=== PATIENT | male | born 1960 | race Caucasian/White ===

== ENCOUNTER → 2018-04-26 11:39 | Outpatient (CLI) | payer MEDICAID, SELFPAY ==
--- NOTE | 2018-04-26 11:43 | RAD_ITS ---
STUDY: X-RAY - RIGHT WRIST REASON FOR EXAM: Male, 58 years old. Continued pain following a recent injury. TECHNIQUE: 3 view(s) of the wrist were obtained. COMPARISON: None. FINDINGS: Normal visualized distal radius and ulna. Normal radiocarpal articulation. Normal distal radioulnar articulation. There is evidence of a nondisplaced avulsion fracture of the triquetrum. Normal carpal articulations. Normal carpometacarpal articulation of the thumb. Normal second through fifth carpometacarpal articulations. Normal visualized metacarpal bones. Soft tissue swelling. RAD/Wrist min 3 Views IMPRESSION: Findings suggestive of a nondisplaced avulsion fracture of the triquetrum with overlying soft tissue swelling. Electronically Signed: Jose Mccoy, at 12:35 EST , Service support ,
== END ==
PROVIDERS: Family Provider Family Medicine; PCP Family Medicine; Referring Provider Family Medicine; Visit Provider Family Medicine
DX: S60.211A Contusion of right wrist, initial encounter (principal)
CPT/HCPCS: 73110

== ENCOUNTER 2018-11-17 23:51 | Observation (INO) | payer MEDICAID, SELFPAY ==
[2018-11-17 23:52] VITALS: PULSE 116; RESP 28; TEMP 36.8; O2SAT 89; BMI 24.6
[2018-11-18] VITALS (19 sets, daily range): BP systolic 130–189; BP diastolic 91–122; PULSE 90–116; RESP 18–28; TEMP 36.6–37.7; O2SAT 92–100; BMI 25.3; BMI 25.4
--- NOTE | 2018-11-18 00:03 | EKG12_ITS ---
Test Reason : OVERDOSE Blood Pressure : / mmHG Vent. Rate : 101 BPM Atrial Rate : 101 BPM P-R Int : 126 ms QRS Dur : 112 ms QT Int : 374 ms P-R-T Axes : 074 069 013 degrees QTc Int : 484 ms Sinus tachycardia Possible Left atrial enlargement Inferior infarct (cited on or before 11-JAN-2016), age undetermined Abnormal ECG Confirmed by DAVID WESTFALL, JUDI ([id number]), electronic news gathering editor DAILY OLIVER ([id number]) on 11/19/2018 10:15:18 A M Referred By: SUZIE Confirmed By:FREDDY HERNADNEZ MD
--- NOTE | 2018-11-18 00:03 | RAD_ITS ---
STUDY: X-RAY CHEST REASON FOR EXAM: Male, 58 years old. Cough. TECHNIQUE: Frontal and lateral views of the chest. COMPARISON: 03/17/2017. 11/28/2013. FINDINGS: Lungs are mildly hyperexpanded with partial flattening of the diaphragm and increased retrosternal airspace on lateral view. There is increased interstitial prominence in the perihilar region of the right lower lung field which may represent early right lower lobe pneumonia. There is no demonstrated dense pulmonary consolidation. There is no demonstrated pleural abnormality. Normal size heart. Normal mediastinum and jose r. Normal visualized pulmonary arteries. Normal visualized aortic arch and descending thoracic aorta. There are diffuse degenerative changes of the visualized thoracic spine. There is exaggerated lower thoracic kyphosis. Normal visualized ribs, clavicles, and shoulders. There is no demonstrated abnormality of the visualized soft tissue structures of the upper abdomen. RAD/Chest PA and Lateral IMPRESSION: Suspect early right lower lobe pneumonia. Follow-up is advised. Suggestion of COPD. Electronically Signed: Robert Parrish MD at 0:50 EDT , Service support ,
--- NOTE | 2018-11-18 00:05 | ED.VIS.GEN ---
History of Present Illness Chief Complaint: Overdose Informant: Patient, Customer Care Representative Narrative: Found on the side of road by paramedics unresponsive. Pulse oxygenation 50% for EMS upon arrival on scene. Given 3 doses of Narcan and awoke. Patient denies any narcotic usage. He needed to be placed on nasal cannula oxygen due to hypoxia. There was vomit around him. Patient is unsure what happened to him. No injury. Current severity is mild. Patient feels better now. Patient is adamant he did not take any narcotics. He stated he is had a cold for the last week. He does have a history of COPD and asthmatic bronchitis. History of CAD as well. Denies any chest pain. - Past Medical History (1) Abnormal nuclear stress test Status: Chronic (2) Chest pain Status: Acute (3) History of left heart catheterization Status: Chronic Comment: 01/12/2016 (4) Atherosclerotic heart disease of [place] coronary artery with other forms of angina pectoris Status: Chronic (5) Encounter for long-term (current) use of other medications Status: Chronic (6) Old myocardial infarction Status: Chronic (7) Angina pectoris Status: Chronic (8) Shortness of breath Status: Chronic (9) Hypertension Status: Chronic (10) COPD (chronic obstructive pulmonary disease) Status: Chronic (11) Tobacco abuse Status: Chronic (12) Chronic pain Status: Chronic Past Medical History - Allergies and Home Meds Allergies/Adverse Reactions: Allergies aspirin Allergy (Verified 11/17/18 23:55) Hives Sulfa (Sulfonamide Antibiotics) Allergy (Verified 11/17/18 23:55) Hives epinephrine Adverse Reaction (Verified 11/17/18 23:55) Anaphylaxis Bee stings Allergy (Uncoded 11/17/18 23:55) Anaphylaxis Primary Care Physician: Mesfin Ellis MD [Primary Care Provider] - Prior records reviewed: Yes Past Medical History: - - See problem list Surgical History: - - Reviewed Smoking Status: Current every day smoker Alcohol: None Drugs: - - Denies - Family History Paternal Family History: Family History (Last Reviewed 02/09/17 @ 15:09 by Teresita Bridges) Father CVA (cerebral vascular accident) Mother CVA (cerebral vascular accident) Family History: Reports: Heart Disease Review of Systems General: Denies: Chills, Fever, Sweats Eyes: Denies: Visual changes - bilaterally, Diplopia ENT: Denies: Rhinorrhea, Sore throat Cardiovascular: Denies: Chest pain, Palpitations Respiratory: Reports: Cough. Denies: Dyspnea, Dyspnea on exertion Gastrointestinal: Denies: Abdominal pain, Nausea, Vomiting, Diarrhea, Melena, Hematochezia Genitourinary: Denies: Dysuria, Hematuria, Frequency Musculoskeletal: Denies: Back pain, Extremity Pain Skin: Denies: Rash, Wounds Neurological: Denies: Headache, Weakness, Numbness Physical Exam Vital Signs/Narrative: Vital Signs Temp Pulse Resp Pulse Ox 11/17/18 23:52 98.3 F 116 H 28 H 89 General: Well nourished, Well developed, No Acute Distress Head: Normocephalic, Atraumatic Eyes: Perrl, EOMI ENT: Moist mucous membranes, No rhinorrhea Neck: Supple, Nontender Cardiovascular: Regular rate, No murmurs, Tachycardia. Negative for: Regular rhythm Respiratory: No distress, Chest nontender, Rales, Wheezing, Diminished. Negative for: CTA bilaterally Abdomen: Soft, Nontender, Nondistended, Normal bowel sounds Back: Nontender, Normal Inspection Extremities: Nontender, No edema Skin: Normal color, No rash Neurological: Alert, Oriented x3, Cranial nerves II-XII grossly intact, Normal Strength, Normal Sensation Psychological: Normal affect, Normal Mood Diagnostic/Tx/Re-eval - Medical Decision Making Patient given a breathing treatment. Patient requiring nasal cannula oxygenation. Lab work chest x-ray and EKG obtained. Lab work shows a leukocytosis with left shift. Troponin is bumped at this time in the positive range likely secondary to his hypoxic cardiac strain. The patient had a heart catheterization a few years ago that showed no significant blockages. He has a completely blocked RCA with complete collaterals. Otherwise no major blockages noted. Patient dermally seen by cardiology. Chest x-ray shows a large right lower aspiration pneumonia. I suspect this is from him swallowing some of his emesis. The patient remains normal oxygenated greater than 95% on nasal cannula. Started on Unasyn. Patient stated the breathing treatments did help his wheezing. Discussed with the hospitalist and will be admitted. Patient is allergic to aspirin. I do not suspect this is cardiac in nature. I suspect this is from significant severe hypoxia secondary to his narcotic overdose causing cardiac strain. This should be resolved with treatment of his hypoxia and aspiration pneumonia. ED Disposition - Plan for ED Patient: Disposition: Home or Assisted Living Diagnosis: Respiratory failure, Narcotic overdose, Aspiration pneumonia, Elevated troponin
[2018-11-18] MEDS: Ipratropium/Albuterol Sulfate 3 ML AMPUL.NEB INHALATION (00:16)
[2018-11-18 00:17] LABS: Absolute Lymphocyte Count 1.49 X10^3/uL (0.83-4.51); Absolute Neutrophil Count 8.7 X10^3/uL (2.0-7.7); Basophil# 0.06 X10^3/uL; Basophil% 0.5 % (0-1); Eosinophil# 0.31 X10^3/uL; Eosinophils% 2.7 % (0-5); Hematocrit 43.8 % (40-54); Hemoglobin 13.7 g/dL (13.0-16.5); Lymphocyte # 1.49 X10^3/ul (4.0); Lymphocyte % 12.8 % (19-41); Mean Corp Hgb Conc 31.3 g/dL (32-36); Mean Corpuscular Volume 86.2 fL (80-94); Mean Platelet Vol. 8.4 fl (6.2-12.0); Monocyte# 1.06 X10^3/uL; Monocyte% 9.1 % (0-10); NRBC Flagged by Analyzer 0 % (0-5); Neutrophil # 8.66 X10^3/uL (2.7-7.7); Neutrophil % 74.3 % (47-70); Platelet Count 325 K/mm3 (150-450); RBC Distribution Width CV 13.6 % (11.6-14.6); RBC Distribution Width SD 43.4 fl (35.1-43.9); Red Blood Count 5.08 M/mm3 (4.6-6.2); White Blood Count 11.7 K/mm3 (4.4-11.0)
[2018-11-18 00:32] LABS: Anion Gap 5 (5-15); BUN 15 mg/dL (7-18); BUN/Creat Ratio 13.4 RATIO (10-20); Calcium,Total 8.9 mg/dL (8.5-10.1); Chloride 107 mmol/L (98-107); Creatinine, Serum 1.12 mg/dL (0.70-1.30); EST Glomerular Filtration Rate 72 mL/min (>60); Est Glom Filt Rate - Afr Amer 87 mL/min (>60); Estimated Creatinine Clearance 80.83 ml/min; Glucose 125 mg/dL (74-106); Potassium 3.8 mmol/L (3.5-5.1); Sodium Level 140 mmol/L (136-145)
[2018-11-18] MEDS: 0.9% Normal Saline 1,000 ML 100 ML IV ×2 (01:50→12:13)
--- NOTE | 2018-11-18 01:52 | NURSING ---
When asked pt. about med list in the computer, pt states that he is supposed to be taking meds, but does not. Pt. is unsure what he was supposed to be taking.
--- NOTE | 2018-11-18 02:09 | HP.PCM_ITS ---
Problem List (1) Respiratory failure Status: Acute (2) Narcotic overdose Status: Acute (3) Aspiration pneumonia Status: Acute (4) Elevated troponin Status: Acute (5) Hypertension Status: Chronic Qualifiers: Hypertension type: essential hypertension Qualified Code(s): I10 - Essential (primary) hypertension (6) COPD (chronic obstructive pulmonary disease) Status: Chronic Qualifiers: Emphysema type: unspecified Qualified Code(s): J43.9 - Emphysema, unspecified History of Present Illness Date of Admission: 11/18/18 Chief Complaint: Acute hypoxic respiratory failure The patient is a 58 year old M with PMH as below who presents by EMS after being found down. He does not remember what happened or how and history is limited. He thinks that he was walking to a friend's house when he collapsed. But he does not remember why he collapsed. When EMS arrived he was surrounded by a pool of vomit and was found to have a pulse ox of 50%. He was given 3 total doses of Narcan which then allowed him to wake up a little bit and be more communicative. He says that for about the last week he is had a cold with a hacking cough but has not seen his doctor in quite a while, and has not taken any of his home medications in at least a year. He denies any chest pain and in the ER he was found to have an elevated troponin of 0.336, this is likely secondary to his hypoxia. Also chest x-ray shows a right lower lobe infiltrate consistent with an aspiration pneumonia given his emesis. He was started on Unasyn in the ER. Past Medical History Past Medical History (Chronic Problems): Chronic Problems (Last Reviewed 02/09/17 @ 15:09 by Teresita Bridges) Abnormal nuclear stress test (Chronic) History of left heart catheterization (Chronic) 01/12/2016 Atherosclerotic heart disease of [place] coronary artery with other forms of angina pectoris (Chronic) Encounter for long-term (current) use of other medications (Chronic) Old myocardial infarction (Chronic) Angina pectoris (Chronic) Shortness of breath (Chronic) Hypertension (Chronic) COPD (chronic obstructive pulmonary disease) (Chronic) Tobacco abuse (Chronic) Chronic pain (Chronic) Medical History: Medical History (Last Reviewed 02/09/17 @ 15:09 by Teresita Bridges) Chest pain (Acute) R07.9 Atherosclerotic heart disease of [place] coronary artery with other forms of angina pectoris (Chronic) I25.118 Old myocardial infarction (Chronic) I25.2 Shortness of breath (Chronic) R06.02 Hypertension (Chronic) I10 COPD (chronic obstructive pulmonary disease) (Chronic) J44.9 Tobacco abuse (Chronic) Z72.0 Chronic pain (Chronic) G89.29 Allergies aspirin Allergy (Verified 11/17/18 23:55) Hives Sulfa (Sulfonamide Antibiotics) Allergy (Verified 11/17/18 23:55) Hives epinephrine Adverse Reaction (Verified 11/17/18 23:55) Anaphylaxis Bee stings Allergy (Uncoded 11/17/18 23:55) Anaphylaxis Home Medications: Ambulatory Orders Medication Instructions Recorded NK 11/18/18 Surgical History: no surgical history Smoking Status: Current every day smoker Tobacco Use: Cigarettes Alcohol: None Drugs: None - *Family History Paternal Family History: Family History (Last Reviewed 02/09/17 @ 15:09 by Teresita Bridges) Father CVA (cerebral vascular accident) Mother CVA (cerebral vascular accident) History Items: Cancer, Heart Disease Review of Systems Constitutional: Denies: Chills, Fever, Weight Change HEENT: Denies: Head Aches, Sinus Congestion, Sinus Drainage Cardiovascular: Denies: Chest Pain, Palpitations Respiratory: Reports: Cough, Sputum production. Denies: Shortness of breath at rest Gastrointestinal: Denies: Abdominal Pain, Nausea, Vomiting Genitourinary: Denies: Dysuria Musculoskeletal: Denies: Joint Pain, Joint Tenderness Skin: Denies: Rash, Wounds Neurological: Denies: Numbness, Tingling, Focal weakness Psychiatric: Denies: Anxiety, Depression Hematologic/ Lymphatic: Denies: Easy Bruising, Easy Bleeding VTE Information - Inpt Only VTE Present on Admission: No Patient Problems: Active and Suspected Problems (Last Reviewed 02/09/17 @ 15:09 by Teresita Bridges) Respiratory failure (Acute) Narcotic overdose (Acute) Aspiration pneumonia (Acute) Elevated troponin (Acute) - Physical Exam General: Cooperative, No apparent distress, Lethargic HEENT: Atraumatic, PERRLA, EOMI, Normocephalic Oral: Dry Mucosa Neck: Supple, No JVD Lungs: Normal air movement, Diminished, Rales, Tachypneic, Wheezes Cardiovascular: Regular rate, Regular Rhythm, Normal S1, Normal S2, No murmurs Abdomen: Soft, Non Tender, Non-Distended, No Hepato-splenomegaly Extremities: No edema, Capillary Refill Less than 3 Seconds Skin: No rashes, No breakdown Neurological: Neuro grossly intact, Sensory exam intact to light touch and pain Psych/Mental Status: Appropriate, Flat Affect Vital Signs Temp Pulse Resp BP Pulse Ox 97.9 F 93 24 H 166/95 H 100 11/18/18 01:30 11/18/18 01:34 11/18/18 01:30 11/18/18 01:30 11/18/18 01:30 Oxygen Flow Rate (L/min) 4 Oxygen Delivery Method Nasal Cannula Weight: 186 lb 15.232 oz Body Mass Index (BMI) 25.3 Intake and Output for Last 24 Hours 11/16/18 11/17/18 11/18/18 23:59 23:59 23:59 Intake Total 112 / 112 Balance 112 / 112 Laboratory Tests Past 24 Hrs 11/18/18 11/18/18 00:10 00:10 WBC 11.7 H RBC 5.08 Hgb 13.7 Hct 43.8 MCV 86.2 MCH 27.0 MCHC 31.3 L RDW Std Deviation 43.4 RDW Coeff of [place] 13.6 Plt Count 325 MPV 8.4 Immature Gran % (Auto) 0.600 Neut % (Auto) 74.3 H Lymph % (Auto) 12.8 L [place] % (Auto) 9.1 Eos % (Auto) 2.7 Baso % (Auto) 0.5 Absolute Neuts (auto) 8.7 H Absolute Lymphs (auto) 1.49 Nucleated RBC % 0 Sodium 140 Potassium 3.8 Chloride 107 Carbon Dioxide 28.0 Anion Gap 5 BUN 15 Creatinine 1.12 Estim Creat Clear Calc 80.83 Est GFR (MDRD) Af Amer 87 Est GFR (MDRD) Non-Af 72 BUN/Creatinine Ratio 13.4 Glucose 125 H Calcium 8.9 Troponin I 0.336 H Assessment/Plan All Active Problems (Last Reviewed 02/09/17 @ 15:09 by Teresita Bridges) Respiratory failure (Acute) Narcotic overdose (Acute) Aspiration pneumonia (Acute) Elevated troponin (Acute) Chest pain (Acute) 1. Acute hypoxic respiratory failure secondary to probable narcotic overdose/aspiration pneumonia secondary to emesis/metabolic encephalopathy from the above -When EMS found him his was oxygenating at 50%, and required 3 doses of Narcan to be revived -He denies any narcotic use or heroin use therefore will obtain a urine drug screen for further evaluation -Continue with Unasyn for his aspiration pneumonia based on the chest x-ray with right lower lobe infiltrate -Continue with oxygen via nasal cannula -IV fluids at 100 -Can have a diet if he passes a bedside swallow evaluation 2. History of COPD -Previous records indicate that he was supposed to be on albuterol inhaler however he has not been on this -Continue with albuterol treatments as needed -Also records indicate that he was supposed to be on budesonide and formoterol however he has not been on this for at least a year 3. CAD/HTN -He was supposed to be on Plavix because he was allergic to aspirin however he has not taken this for a year and he has not been on his lisinopril, metoprolol, or his Lipitor -We will monitor and reevaluate as he becomes more alert -He has had stress testing cardiac cath within the last 3 years which were essentially normal. I think that his troponin elevation at this time secondary to his hypoxia and his acute event for being here. Will obtain serial troponins for further evaluation but at the moment will not aggressively manage as an NSTEMI DVT: Lovenox Code Visit Inpatient E&M: 15760 Init Hosp L3
[2018-11-18 02:42] LABS: Amphetamine Urine VISTA POSITIVE (<1000 ng/mL); Barbiturate Urine VISTA NEGATIVE (< 200 ng/mL); Benzodiazepine Urine VISTA NEGATIVE (< 200 ng/mL); Cocaine Urine VISTA NEGATIVE (< 300 ng/mL); Ecstacy Urine VISTA POSITIVE (< 500 ng/mL); Methadone Urine VISTA NEGATIVE (< 300 ng/mL); PCP Urine VISTA NEGATIVE (< 25 ng/mL); THC Urine VISTA NEGATIVE (< 50 ng/mL); Vista UDS pH Range 5
[2018-11-18 06:30] LABS: Absolute Lymphocyte Count 0.68 X10^3/uL (0.83-4.51); Absolute Neutrophil Count 16.4 X10^3/uL (2.0-7.7); Basophil# 0.06 X10^3/uL; Basophil% 0.3 % (0-1); Eosinophils% 0.5 % (0-5); Hematocrit 46.4 % (40-54); Hemoglobin 14.6 g/dL (13.0-16.5); Lymphocyte # 0.68 X10^3/ul (4.0); Lymphocyte % 3.7 % (19-41); Mean Corp Hgb Conc 31.5 g/dL (32-36); Mean Corpuscular Hgb 26.8 pg (27.0-32.0); Mean Corpuscular Volume 85.1 fL (80-94); Mean Platelet Vol. 8.4 fl (6.2-12.0); Monocyte# 0.99 X10^3/uL; Monocyte% 5.4 % (0-10); NRBC Flagged by Analyzer 0 % (0-5); Neutrophil # 16.35 X10^3/uL (2.7-7.7); Neutrophil % 89.6 % (47-70); Platelet Count 326 K/mm3 (150-450); RBC Distribution Width CV 13.6 % (11.6-14.6); RBC Distribution Width SD 42.5 fl (35.1-43.9); Red Blood Count 5.45 M/mm3 (4.6-6.2); White Blood Count 18.3 K/mm3 (4.4-11.0)
[2018-11-18] MEDS: Lisinopril 10 MG Tablet PO (06:30)
[2018-11-18 06:51] LABS: Anion Gap 9 (5-15); BUN 12 mg/dL (7-18); Calcium,Total 8.4 mg/dL (8.5-10.1); Chloride 109 mmol/L (98-107); Creatinine, Serum 0.75 mg/dL (0.70-1.30); EST Glomerular Filtration Rate 114 mL/min (>60); Est Glom Filt Rate - Afr Amer 138 mL/min (>60); Estimated Creatinine Clearance 120.71 ml/min; Glucose 95 mg/dL (74-106); Potassium 3.9 mmol/L (3.5-5.1); Sodium Level 141 mmol/L (136-145)
[2018-11-18 06:52] LABS: D-Dimer Quantitative (DVT/PE) 1.18 FEU/ug/m (0.27-0.49)
--- NOTE | 2018-11-18 06:57 | CT_ITS ---
STUDY: CTA CHEST REASON FOR EXAM: Male, 58 years old. Shortness of breath and elevated d-dimer. Elevated troponin white count. RADIATION DOSAGE (If Supplied By Facility): CTDIvol = ( 10.13 ) mGy, DLP = ( 490.07 ) mGycm TECHNIQUE: The examination was performed with the intravenous administration of 100 ml of Isovue 370. Post-processing of the angiographic images was performed, with multiplanar reformation and 3D reconstruction. Individualized dose optimization techniques were used for this CT. COMPARISON: None. FINDINGS: Cardiac monitoring leads are present. Normal enhancement of the main pulmonary artery and right and left pulmonary arteries. There is limited enhancement of the bilateral peripheral pulmonary arteries. There is no demonstrated pulmonary embolism. There is atherosclerotic tortuosity of the aortic arch and descending thoracic aorta. Maximum transverse dimension of the ascending thoracic aorta measures 4.1 cm. There is no demonstrated aortic dissection. Normal heart and pericardium. There are visualized mediastinal lymph nodes, which are within normal size limits, and with normal morphology. There appears to be bilateral hilar lymphadenopathy. Normal visualized trachea and bronchi. The lungs are hyper expanded, with flattening of the hemidiaphragms. There are nodular airspace opacities present within both lower lobes, right middle lobe, and lingula. Some of this may represent airspace consolidation. Other areas may actually represent nodules measuring up to 2.2 cm in greatest dimension. Normal pleura. Normal chest wall structures. There are multiple sclerotic lesions was scattered throughout the imaged thoracic vertebral bodies that could represent small metastases. The bones in general are osteopenic. There are multilevel degenerative changes of the thoracic spine. Normal visualized upper abdomen. CT/CTA Chest W/WO Contrast IMPRESSION: 1. No CTA demonstrated pulmonary embolism or arterial dissection. 2. 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 3. Bilateral hilar lymphadenopathy. 4. 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 Electronically Signed: Kamila Ellis MD at 8:58 EDT , Service support ,
[2018-11-18] MEDS: Enoxaparin 40 MG/0.4 ML Syringe SC (09:45)
--- NOTE | 2018-11-18 11:40 | CASEMGMT ---
GARRICK BOTELLO CARDIOLOGY PHYSICIAN AYAN to room to meet with patient for initial transition planning/care coordination assessment. GARRICK BOTELLO introduced self and role at [facility]. Pt voices understanding and consents to assessment at this time. Pt resting in bed in no distress at this time. Pt is A/O at this time. Pt answered questions when asked but answers were very brief and would not provide much information. Care providers, pharmacy, and demographics verified at this time. There is no person to notify or next of kin listed on demographics. Asked pt if there was a family member or friend he would like listed and he stated No. Pt confirmed he lives with a friend but again stated he did not want anyone listed, even for emergency contact. Pt stated several times during assessment, I just want to get out of here. Pt denies any financial concerns and denies wanting to talk to SW. PCP: Dr Mesfin Ellis- has not been in to see him for about a year. Specialists: denies Preferred [facility]acy: [facility] Insurance: [employer]-- does not have a Wildlife Conservationist Prescription Benefit: Yes Living Will/HPOA: Pt does not currently have LW/HCPOA and declines wanting any information at this time. LNOK: Pt states he does not want anyone listed. Living Arrangements: States lives with a friend. States is independent with all ADL's and home mgmt tasks. Transportation: States he either walks or uses transportation through [facility]. DME: Denies using any DME and denies needs. HHC/SNF: No history of either, denies needs, and no needs identified. Pt wishes to return home and denies having any concerns/needs at this time. CM to follow for any discharge planning/needs. Pt made aware to ask for CM or SW if any needs/concerns arise. PLAN: Home with discharge plans in place. Amalia CASTELLANOS RN, CM
--- NOTE | 2018-11-18 13:59 | DCINST_ITS ---
- Discharge Diagnoses Current Active Problems: Current Active and Chronic Problems (Last Reviewed 02/09/17 @ 15:09 by Teresita Bridges) Respiratory failure (Acute) Narcotic overdose (Acute) Aspiration pneumonia (Acute) Elevated troponin (Acute) You will use the following diet at home:: No restrictions Your food should be the consistency of: Regular Your liquids should be the consistency of: Regular/Thin Discharge Activity: Return to Normal Activity Weight Bearing Status: Full weight bearing Additional Instructions: YOU HAVE AN ABNORMAL CAT SCAN OF THE CHEST INDICATING YOU MAY HAVE CANCER-YOU NEED TO FOLLOW UP WITH DR ELLIS IN THE NEXT 7-10 DAYS. Allergies/Adverse Reactions: Allergies aspirin Allergy (Verified 11/17/18 23:55) Hives Sulfa (Sulfonamide Antibiotics) Allergy (Verified 11/17/18 23:55) Hives epinephrine Adverse Reaction (Verified 11/17/18 23:55) Anaphylaxis Bee stings Allergy (Uncoded 11/17/18 23:55) Anaphylaxis Medications to take at Discharge Amox/Clavulanate Tablet [Augmentin Tablet] 875 mg PO BID #20 tab 11/18/18 Lisinopril [Zestril] 20 mg PO DAILY #30 tab 11/18/18 The following prescriptions were given: Amox/Clavulanate Tablet [Augmentin Tablet] 875 mg PO BID #20 tab Transmission Status: Pending to [facility] Lisinopril [Zestril] 20 mg PO DAILY #30 tab Prescription Printed Primary Care Physician: Mesfin Ellis MD [Primary Care Provider] - Please follow up with your Primary Care Physician in: within one week Test Results: Test results from this visit will be discussed in further detail at your follow- up appointment, if applicable.
--- NOTE | 2018-11-19 09:01 | DS.PCM_ITS ---
Discharge Date and Diagnosis Date of Admission: 11/18/18 Date of Discharge: 11/18/18 - Primary Discharge Diagnosis #1 aspiration pneumonia-secondary to toxic encephalopathy from unknown drug ingestion #2 indeterminate troponin elevations-etiology unclear #3 amphetamine and methamphetamine abuse #4 noncompliance with medical regimen #5 hypertension-uncontrolled due to patient noncompliance #6 possible metastatic cancer to lung and thoracic spine #7 suspected narcotic abuse - Secondary Discharge Diagnosis Chronic Problems (Last Reviewed 02/09/17 @ 15:09 by Teresita Bridges) Abnormal nuclear stress test (Chronic) History of left heart catheterization (Chronic) 01/12/2016 Atherosclerotic heart disease of [place] coronary artery with other forms of angina pectoris (Chronic) Encounter for long-term (current) use of other medications (Chronic) Old myocardial infarction (Chronic) Angina pectoris (Chronic) Shortness of breath (Chronic) Hypertension (Chronic) COPD (chronic obstructive pulmonary disease) (Chronic) Tobacco abuse (Chronic) Chronic pain (Chronic) Hospital Course and Treatment Operations: None Procedures: None Summary of Care Provided: The patient is a 58 year old M who was brought to the emergency room at [facility] after being found unresponsive by the side of the road, patient was given 3 doses of Narcan and awoke with this treatment. Patient denied any illicit drug usage, he initially had to be placed on nasal cannula due to hypoxia, there is noted to be vomitus around his mouth at the time of first examination. Patient stated that he felt better in the emergency room, he admitted to a history of COPD and asthmatic bronchitis as well as coronary artery disease. Patient denied any chest pain however. Work-up in the emergency room included a chest x-ray, EKG, and labs. Labs showed a leukocytosis, troponin was elevated in the intermediate range, chest x-ray showed a right lower lobe infiltrate felt to be secondary to aspiration. Patient was given IV Unasyn, he was given breathing treatments, tox screen of the urine was positive for methamphetamines and amphetamines. Patient was admit suri to ICU, IV antibiotics were continued, patient was finally weaned off oxygen and maintaining his pulse ox above 90% while ambulating. Patient has CTA of his chest performed due to an elevated [id number] showed possible metastatic process in the lungs and thoracic spine. I discussed this with the patient extensively and advised him to follow-up with his PCP concerning this. On 11/18/2018, patient was seen and examined, at that time he was alert and oriented x3, he was adamant about being discharged home and threatened to call a taxi to pick them up. Patient stated to this examiner that he was antisocial. Due to the fact that he was not needing oxygen and that his vital signs appeared stable, I agreed to the patient's discharge. I discussed his positive tox screen in his urine with him, he adamantly denied taking any methamphetamines or amphetamines. Patient did admit to not taking his home medications for quite some time-he states that he did not care about his medical health and he just stopped his medications. I advised him to resume his blood pressure medication and wrote him a prescription for lisinopril. On 11/18/2018, patient was seen and examined: On examination he appeared to be mildly agitated and had manic behavior. Vital signs as documented. Skin warm and dry and without overt rashes. Neck without JVD. Lungs-expiratory wheezes were noted bilaterally, patient did not appear short of breath however. Heart exam notable for regular rhythm, normal sounds and absence of murmurs, rubs or gallops. Abdomen unremarkable and without evidence of organomegaly, masses, or abdominal aortic enlargement. Extremities nonedematous. Neuro: Cranial nerves II through XII are grossly intact, no focal motor deficits were noted, sensation to light touch and pinprick intact. Psych: Patient is alert and oriented x3, he did appear to be anxious and had manic behavior. On 11/18/18, patient was seen and examined and felt to be in stable condition for discharge home, again I reiterated to the patient that he must follow-up concerning his abnormal CTA and his other medical problems with his PCP. - Physical Exam Vital Signs Temp Pulse Resp BP Pulse Ox 98.3 F 92 27 H 152/96 H 97 11/18/18 14:12 11/18/18 14:12 11/18/18 14:12 11/18/18 14:12 11/18/18 14:12 Oxygen Flow Rate (L/min) 2 Oxygen Delivery Method Room Air Weight: 84.8 kg Body Mass Index (BMI) 25.3 Intake and Output for Last 24 Hours 11/17/18 11/18/18 11/19/18 23:59 23:59 23:59 Intake Total 1909 / 1909 Output Total 750 / 750 Balance 1159 / 1159 Discharge Activity: Return to Normal Activity Weight Bearing Status: Full weight bearing Home Medications: Medications to take at Discharge Amox/Clavulanate Tablet [Augmentin Tablet] 875 mg PO BID #20 tab 11/18/18 Lisinopril [Zestril] 20 mg PO DAILY #30 tab 11/18/18 Following Prescrptions Were Given to Patient: Amox/Clavulanate Tablet [Augmentin Tablet] 875 mg PO BID #20 tab Transmission Status: Received by [facility] Lisinopril [Zestril] 20 mg PO DAILY #30 tab Prescription Printed Primary Care Physician: Mesfni Ellis MD [Primary Care Provider] - Please follow up with your Primary Care Physician in: within one week Disposition: Home Minutes spent on discharge:: 33 Patient Condition:: Stable Medical Necessity - Tobacco Use Smoking Status: Current every day smoker Tobacco Use: Cigarettes Meaningful Use Info Meaningful Use Diagnoses (Choose all that apply): None applicable Code Visit Inpatient E&M: 66610 Disch Hosp
== END 2018-11-18 14:15 | disposition home or self-care (01) ==
LOC: ED 11-18 00:51 → ICU 11-18 01:01
PROVIDERS: Admitting Provider Family Medicine; Emergency Provider Emergency Medicine; Family Provider Family Medicine; PCP Family Medicine; Visit Provider Internal Medicine
DX: G92 Toxic encephalopathy (principal); J96.01 Acute respiratory failure with hypoxia; T40.601A Poisoning by unspecified narcotics, accidental (unintentional), initial encounter; J69.0 Pneumonitis due to inhalation of food and vomit; F17.210 Nicotine dependence, cigarettes, uncomplicated; F15.10 Other stimulant abuse, uncomplicated; I10 Essential (primary) hypertension; I25.10 Atherosclerotic heart disease of native coronary artery without angina pectoris; J44.9 Chronic obstructive pulmonary disease, unspecified; I25.2 Old myocardial infarction; Z91.14 Patient's other noncompliance with medication regimen
CPT/HCPCS: 71046; 71275; 80048; 80307; 84484; 85025; 85379; 93005; 94640; 96361; 96365; 96366; 96372; 99218; 99285; J7030; Q9967; A4216; G0378; J0295

== ENCOUNTER → 2019-06-09 10:28 | Outpatient (CLI) | payer MEDICAID, SELFPAY ==
[2018-12-29 06:16] VITALS: BMI 25.9
[2019-06-09 11:48] VITALS: PULSE 102; PULSE 103; PULSE 104; PULSE 105; PULSE 79; PULSE 81; PULSE 91; O2SAT 94; O2SAT 95; O2SAT 96; O2SAT 97
--- NOTE | 2019-06-09 14:36 | PCM.PSN.6M ---
PSN 6 Minute Walk Test - 6 Minute Walk Test 6 Minute Walk Test: 6 Minute Walk Test PSN:6-Minute Walk Test Start: 06/09/19 11:47 Freq: Status: Active Protocol: RESP.6MINW Document 06/09/19 11:48 FR (Rec: 06/09/19 11:55 FR [id number]) 6 Minute Walk Test Date Performed 06/09/19 Time Performed 10:30 Height 6 ft Weight: 83.915 kg Weight in Pounds 185.[address]: DR. Olivares Assistive device used: None Pre-test Oxygen Delivery Method Room Air Pulse Ox (%) 97 Pulse Rate (60-100 beats/min) 81 Dyspnea Lizzy Scale (0-10) 4 Exertion Lizzy Scale (6-20) 11 1st minute Oxygen Delivery Method Room Air Pulse Ox (%) 95 Pulse Rate (60-100 beats/min) 79 2nd minute Oxygen Delivery Method Room Air Pulse Ox (%) 95 Pulse Rate (60-100 beats/min) 103 H 3rd minute Oxygen Delivery Method Room Air Pulse Ox (%) 94 Pulse Rate (60-100 beats/min) 102 H 4th minute Oxygen Delivery Method Room Air Pulse Ox (%) 95 Pulse Rate (60-100 beats/min) 104 H 5th minute Oxygen Delivery Method Room Air Pulse Ox (%) 96 Pulse Rate (60-100 beats/min) 105 H Reported Symptoms Increased Work of Breathing 6th minute Oxygen Delivery Method Room Air Pulse Ox (%) 95 Pulse Rate (60-100 beats/min) 103 H Dyspnea Lizzy Scale (0-10) 7 Exertion Lizzy Scale (6-20) 14 Post-test Oxygen Delivery Method Room Air Pulse Ox (%) 97 Pulse Rate (60-100 beats/min) 91 Full Laps Walked 22 Partial Lap, Number of Tiles Walked 47 Total Distance Walked (ft) 1345 - Interpretation Interpretation: The patient was able to ambulate 1345 feet over the course of 6 minutes on room air with the assistance of a cane and no breaks. The patient did have some tachycardia, but oxygen irene was only 94%. These findings are consistent with deconditioning. - Recommendations Recommendations: No supplemental oxygen is indicated at this time.
== END ==
PROVIDERS: PCP Family Medicine; Referring Provider Internal Medicine Critical Care Medicine; Visit Provider Internal Medicine Critical Care Medicine
DX: J96.01 Acute respiratory failure with hypoxia (principal); J96.02 Acute respiratory failure with hypercapnia
CPT/HCPCS: 94618

== ENCOUNTER → 2019-06-17 12:35 | Outpatient (CLI) | payer MEDICAID, SELFPAY ==
[2018-12-29 06:16] VITALS: BMI 25.9
--- NOTE | 2019-06-17 12:37 | CT_ITS ---
STUDY: CT CHEST WITHOUT CONTRAST REASON FOR EXAM: Male, 59 years old. PT STATED F/U TO PNEUMONIA AND R/O LUNG CA RADIATION DOSAGE (If Supplied By Facility): CTDIvol = ( 13.83 ) mGy, DLP = ( 575.01 ) mGycm TECHNIQUE: Transaxial imaging was performed without the administration of intravenous contrast material. Multiplanar coronal and sagittal images were reformatted. Individualized dose optimization techniques were used for this CT. COMPARISON: Comparison is made with prior study dated November 18, 2018. FINDINGS: Stable benign-appearing bilateral axillary lymph nodes. The previously seen diffuse bilateral nodular pulmonary infiltrates have resolved. No new abnormality is seen. There is no demonstrated pleural abnormality. There are calcifications of the coronary arteries. There are multiple small lymph nodes within the mediastinum, which are normal in size and morphology most compatible with reactive lymph hyperplasia. Stable calcified right hilar lymph node. Normal unenhanced pulmonary arteries. There is atherosclerotic calcification of the aortic arch. There are multi-level degenerative changes of the thoracic spine. Stable appearance of multiple small sclerotic lesions in the lower thoracic vertebrae. Metastatic disease should be ruled out. 1.6 cm nodular density in the left adrenal gland. This may represent an adenoma. This is unchanged. CT/Chest without Contrast IMPRESSION: Interval resolution of the previously seen bilateral pulmonary nodular infiltrates. Findings suggestive of a small left adrenal adenoma. Electronically Signed: Jose Mccoy, at 14:28 EDT , Service support ,
--- NOTE | 2019-06-18 08:47 | PFT ---
INTRODUCTION: The patient is a 59-year-old male that presents for pulmonary function studies secondary to a diagnosis of lung nodule. Respiratory therapy reports good patient effort. Bronchodilators were used during testing. INTERPRETATION: Forced expiration spirometry demonstrates the presence of a severe large airways obstructive ventilatory defect. There was a significant response to aerosolized bronchodilators, based upon change noted in FEV1. Spirograms are of good quality and do not plateau indicating slow emptying of the lungs. Body plethysmography was performed and reveals a decreased TLC to 4.52 L, 63% of predicted, indicative of a moderate restrictive ventilatory impairment. The remainder of the lung volumes are symmetrically reduced. Diffusing capacity by single breath CO is preserved at 94% of predicted. IMPRESSION: Partially reversible severe mixed ventilatory defect with preserved diffusing capacity.
== END ==
PROVIDERS: Family Provider Family Medicine; PCP Family Medicine; Referring Provider Internal Medicine Critical Care Medicine; Visit Provider Internal Medicine Critical Care Medicine
DX: J96.90 Respiratory failure, unspecified, unspecified whether with hypoxia or hypercapnia (principal); R91.8 Other nonspecific abnormal finding of lung field
CPT/HCPCS: 71250; 94060; 94726; 94729

== ENCOUNTER → 2020-06-22 10:20 | Outpatient (CLI) | payer MEDICAID, SELFPAY ==
[2019-09-20 05:41] VITALS: BMI 26.6
[2020-06-12 06:39] VITALS: BMI 27.9
--- NOTE | 2020-06-22 14:10 | PFTCOMP ---
COMPLETE PULMONARY FUNCTION TEST INTERPRETATION Brief HPI: Patient is a 60 year old male, currently under the care of myself, who presents to [facility] for complete pulmonary function tests secondary to diagnosis of COPD. Respiratory therapist reports good effort and reproducible results. Interpretation: Forced expiration spirometry shows a severe large airways obstructive ventilatory defect with an FEV1 of 44% predicted. There is no significant bronchodilator response by strict ATS criteria. Spirograms are of good quality and plateau slowly, indicating slowly emptying areas of the lungs. The respiratory flow volume loop shows decreased expiratory flow rates at all lung volumes consistent with airway obstruction. Lung volumes by body plethysmography show a normal total lung capacity at 7.27 L, 101% predicted. FRC and RV are elevated out of proportion. Lung volume measurements are consistent with air-trapping. Diffusion capacity by carbon monoxide is normal at 96% predicted. The airway resistance is elevated. Compared to previous pulmonary function tests from 06/17/2019, there is been significant worsening with air trapping and hyperinflation. Impression: Irreversible severe large airways obstructive ventilatory defect with preserved diffusion capacity, in a pattern consistent with chronic bronchitis.
== END ==
PROVIDERS: Referring Provider Internal Medicine Critical Care Medicine; Visit Provider Internal Medicine Critical Care Medicine
DX: J44.9 Chronic obstructive pulmonary disease, unspecified (principal)
CPT/HCPCS: 94060; 94726; 94729

== ENCOUNTER → 2020-06-28 07:55 | Outpatient (CLI) | payer MEDICAID, SELFPAY ==
[2020-06-12 06:39] VITALS: BMI 27.9
[2020-06-28 08:15] VITALS: PULSE 100; PULSE 104; PULSE 89; PULSE 92; PULSE 94; PULSE 98; O2SAT 94; O2SAT 95; O2SAT 96; O2SAT 97; O2SAT 98
--- NOTE | 2020-06-29 14:07 | WT_ITS ---
PSN 6 Minute Walk Test 6 Minute Walk Test 6 Minute Walk Test: 6 Minute Walk Test PSN:6-Minute Walk Test Start: 06/28/20 08:17 Freq: Status: Active Protocol: RESP.6MINW Document 06/28/20 08:15 AE (Rec: 06/28/20 08:21 [email or web address] Desktop) 6 Minute Walk Test Date Performed 06/28/20 Time Performed 08:15 Height 6 ft Weight: 205 lb Weight in Pounds 205.[address]: Dr Olivares Assistive device used: None Pre-test Oxygen Delivery Method Room Air Pulse Ox (%) 98 Pulse Rate (60-100 beats/min) 89 Dyspnea Lizzy Scale (0-10) 0.5 Exertion Lizzy Scale (6-20) 6 1st minute Oxygen Delivery Method Room Air Pulse Ox (%) 97 Pulse Rate (60-100 beats/min) 98 2nd minute Oxygen Delivery Method Room Air Pulse Ox (%) 95 Pulse Rate (60-100 beats/min) 100 3rd minute Oxygen Delivery Method Room Air Pulse Ox (%) 94 Pulse Rate (60-100 beats/min) 104 H 4th minute Oxygen Delivery Method Room Air Pulse Ox (%) 94 Pulse Rate (60-100 beats/min) 92 5th minute Oxygen Delivery Method Room Air Pulse Ox (%) 96 Pulse Rate (60-100 beats/min) 94 6th minute Oxygen Delivery Method Room Air Pulse Ox (%) 95 Pulse Rate (60-100 beats/min) 100 Dyspnea Lizzy Scale (0-10) 3 Exertion Lizzy Scale (6-20) 12 Post-test Oxygen Delivery Method Room Air Pulse Ox (%) 98 Pulse Rate (60-100 beats/min) 94 Full Laps Walked 19 Partial Lap, Number of Tiles Walked 30 Total Distance Walked (ft) 1151 Interpretation Interpretation: The patient ambulated 1151 feet over the course of 6 minutes beginning on room air without assistive devices or breaks. Pretesting oxygen saturation was noted to be 98% on room air. With ambulation, the irene oxygen saturation was 94%. There was no significant exertional oxygen desaturation. Recommendations Recommendations: There is no indication for the use of supplemental oxygen at this time.
== END ==
PROVIDERS: Referring Provider Internal Medicine Critical Care Medicine; Visit Provider Internal Medicine Critical Care Medicine
DX: J44.9 Chronic obstructive pulmonary disease, unspecified (principal)
CPT/HCPCS: 94618

== ENCOUNTER 2021-04-12 14:50 | Inpatient (IN) | payer MEDICAID, SELFPAY ==
[2021-04-12] VITALS (15 sets, daily range): BP systolic 104–138; BP diastolic 71–108; PULSE 99–107; RESP 15–28; TEMP 35.7–36.3; O2SAT 81–100; BMI 27.3; BMI 26.5
--- NOTE | 2021-04-12 15:39 | EKG12_ITS ---
Test Reason : CP Blood Pressure : / mmHG Vent. Rate : 101 BPM Atrial Rate : 101 BPM P-R Int : 122 ms QRS Dur : 110 ms QT Int : 336 ms P-R-T Axes : 074 049 040 degrees QTc Int : 435 ms Sinus tachycardia Inferior infarct , age undetermined Abnormal ECG Confirmed by DAVID WESTFALL, JUDI ([id number]), photograph editor DAILY OLIVER ([id number]) on 04/15/2021 1:08:31 PM Referred By: TAMIR Confirmed By:FREDDY HERNANDEZ MD
--- NOTE | 2021-04-12 15:54 | RAD_ITS ---
STUDY: X-RAY CHEST REASON FOR EXAM: Male, 60 years old. Chest pain TECHNIQUE: Frontal view COMPARISON: 11/18/2018. FINDINGS: The lungs are expanded. There is a mild right basilar infiltrate. Normal size heart. Normal mediastinum and jose r. Normal visualized pulmonary arteries. Normal visualized aortic arch and descending thoracic aorta. Degenerative changes of the thoracic spine. Normal visualized ribs, clavicles, and shoulders. There is no demonstrated abnormality of the visualized soft tissue structures of the upper abdomen. RAD/Chest 1 View (Portable) IMPRESSION: Mild right basilar infiltrate. Electronically Signed: Reinier Hillman DO at 16:10 EST ,
--- NOTE | 2021-04-12 16:03 | ED.VIS.CHEST ---
HPI History of Present Illness Chief Complaint: Chest Pain Narrative Narrative: 60-year-old male presenting with chest pain and shortness of breath which he states has had for 3 weeks. Apparently a well check was done on the patient and he was found to be doing methamphetamine and heroin. At this point this is when he stated he is having chest pain. He states he had difficulty getting around feels generally weak. He states he is doing methamphetamine and heroin because he is depressed because he lost his and mother. Patient took rate of pain located in his sacrum and buttocks. Apparently in route he urinated on himself. [facility] Medical History Atherosclerotic heart disease of [place] coronary artery with other forms of angina pectoris Chest pain Chronic pain COPD (chronic obstructive pulmonary disease) Hypertension Old myocardial infarction Shortness of breath Tobacco abuse Home Medications NK 04/12/21 [History Last Taken Unknown] Allergy/AdvReac Type Severity Reaction Status Date / Time aspirin Allergy Hives Verified 04/12/21 14:55 Sulfa (Sulfonamide Allergy Hives Verified 04/12/21 14:55 Antibiotics) epinephrine AdvReac Anaphylaxis Verified 04/12/21 14:55 Bee stings Allergy Anaphylaxis Uncoded 04/12/21 14:55 Family History Father CVA (cerebral vascular accident) COPD (chronic obstructive pulmonary disease) Mother CVA (cerebral vascular accident) Social History household members: other details: room mate Smoking Status: Heavy Smoker (>10/day) second hand exposure: Yes substance use type: heroin and amphetamines ROS ROS ED Constitutional Constitutional ED: Denies chills or fever(s) Eyes Eyes: Denies blurry vision or change in vision ENT ENT ED: Denies rhinorrhea or sore throat Cardiovascular Cardiovascular: Reports as per HPI and racing heartbeat Respiratory/Chest Respiratory/Chest: Reports dyspnea and dyspnea on exertion Gastrointestinal Gastrointestinal: Denies abdominal pain, nausea or vomiting Genitourinary Genitourinary ED: Denies dysuria Musculoskeletal Musculoskeletal: Reports other Details: Pain over the tailbone and left gluteal region Integumentary Reports other Details: Large wound over sacrum and right gluteal region Neurologic Neurologic: Reports headache(s); Denies paresthesias or weakness EXAM Physical Exam Const Vital Signs: 04/12/21 14:56 04/12/21 15:03 04/12/21 15:45 Temperature 96.2 F L Temperature Source Temporal Pulse Rate 107 H Respiratory Rate 28 H Respiratory Effort Short of Breath Respiratory Pattern Tachypnea Blood Pressure 129/104 H Blood Pressure Mean 112 Pulse Ox 93 92 Oxygen Delivery Method Room Air Room Air Oxygen Flow Rate (L/min) 04/12/21 16:00 04/12/21 17:00 04/12/21 18:02 Temperature 96.5 F L 97 F L 97.1 F L Temperature Source Temporal Temporal Temporal Pulse Rate 100 102 H 103 H Respiratory Rate 20 H 15 18 Respiratory Effort Respiratory Pattern Blood Pressure 123/83 H 109/97 H 135/81 H Blood Pressure Mean 96 101 99 Pulse Ox 95 95 97 Oxygen Delivery Method Room Air Nasal Cannula Room Air Oxygen Flow Rate (L/min) 2 2 04/12/21 19:00 Temperature 97.1 F L Temperature Source Temporal Pulse Rate 99 Respiratory Rate 16 Respiratory Effort Respiratory Pattern Blood Pressure 138/108 H Blood Pressure Mean 118 Pulse Ox Oxygen Delivery Method Room Air Oxygen Flow Rate (L/min) Positive obese and unkempt General Appearance ED: unkempt Nutritional Appearance: obese Eyes PERRL and EOMs intact bilaterally General Eye ED: Yes pale conjunctiva Neck No no lymphadenopathy and No supple Chest Wall inspection of chest normal and palpation of chest normal Resp Resp Narrative: Tachypneic. Speaking in full sentences. Neuro oriented x3 and CN's II-XII intact bilaterally Sensorium / Orientation: awake and alert Psych Appearance: unkempt Attitude: agitated Skin Skin Narrative: Large sacral wound which is circular with erythema surrounding. There is increased warmth here. This does extend into the left gluteal region at the gluteal fold. It is tender to palpations. No crepitance. Heart Score History: Slightly/Non-Suspicious ECG: Normal Age: >45 - <65 years Risk Factors: >/= 3 Risk Factors or History of CAD Troponin: >/=3 x Normal Limit Score: 5 MDM MDM MDM Narrative Medical decision making narrative: Patient arrives agitated and slightly confused with a rapid heart rate and respiratory rate. Sepsis work-up was obtained. EKG obtained on arrival showed a sinus tachycardia with a ventricular rate of 101 bpm without sign of ischemic change. CBC shows a leukocytosis of 50,000 with a hemoglobin of 6.9 and hematocrit of 69.5. Platelets are high at 560. Patient has 19 bands. At this point because he was in respiratory distress I did start vancomycin and Zosyn with concern for respiratory illness with his history of aspiration pneumonia as well. His initial chest x-ray on my interpretation showed a right basilar infiltrate. Patient's high-sensitivity troponin was elevated at 479. With the patient's chest pain, NSTEMI, and elevated D-dimer at 10.97 I did start a heparin drip and sent Hemoccult stool. He was typed and screened for 2 units. Stool was brown on examination. Creatinine is 1.31 with a BUN of 46 which is consistent with GI bleed and also is probably dehydration. Patient was given 2 L of IV fluids. Potassium is slightly elevated at 5.2 but I think the IV fluids to be sufficient. Glucose was elevated at 144 without an anion gap. Lactic acid was within normal limits at 1.8. CTA of the chest revealed multiple bilateral pulmonary emboli as well as bilateral pneumonia and right pleural effusion. Urinalysis is also positive for infection with 500 leukocyte esterase, 50-100 WBCs, and 2+ bacteria on a cath urine specimen. Patient was Hemoccult positive. He is given Protonix in the ER. Blood will be started when ready. Discussed with hospitalist for admission. Patient will go to the ICU tonight. His repeat troponin had come down to 432. Covid PCR is negative. Impression: 1. Pneumonia 2. Sepsis 3. UTI 4. Sacral decubitus ulcer 5. Right gluteal 6. Bilateral pulmonary emboli 7. Acute blood loss anemia 8. GI bleed 9. NSTEMI Lab Data Attestation: I reviewed the patient's lab results. Labs: Laboratory Results - last 24 hr 04/12/21 04/12/21 04/12/21 13:00 13:00 13:00 WBC 50.0 H* RBC 3.41 L Hgb 6.9 L Hct 23.7 L MCV 69.5 L MCH 20.2 L MCHC 29.1 L RDW Std Deviation 44.9 H RDW Coeff of Pilo 18.6 H Plt Count 560 H MPV 8.9 Neut % (Auto) Not Reportable Absolute Neuts (auto) 44.0 H Absolute Lymphs (auto) 0.00 L Total Counted 100 Neutrophils % (Manual) 69 Band Neutrophils % 19 H Monocytes % (Manual) 4 Metamyelocytes % 5 H Myelocytes % 2 H Blast Cells % 1 H* Nucleated RBCs/100 WBC 3 Diff Path Review May foll Platelet Estimate MOD INC RBC Morphology N CHROM Anisocytosis 1+ PT INR APTT D-Dimer Quant (PE/DVT) 10.97 H* Sodium 132 L Potassium 5.2 H Chloride 98 Carbon Dioxide 24.0 Anion Gap 10 BUN 46 H Creatinine 1.31 H Estim Creat Clear Calc 65.46 Est GFR (MDRD) Af Amer 72 Est GFR (MDRD) Non-Af 60 BUN/Creatinine Ratio 35.1 H Glucose 144 H Lactic Acid Calcium 8.4 L Total Bilirubin Direct Bilirubin AST ALT Alkaline Phosphatase Troponin I High Sens 479 H* Total Protein Albumin Globulin Urine Color Urine Clarity Urine pH Ur Specific [place] Urine Protein Urine Glucose (UA) Urine Ketones Urine Occult Blood Urine Nitrite Urine Bilirubin Urine Urobilinogen Ur Leukocyte Esterase Urine RBC Urine WBC Ur Squamous Epith Cells Urine Bacteria Hyaline Casts Urine Mucus Urine Opiates Screen Urine Methadone Screen Ur Barbiturates Screen Ur Phencyclidine Scrn Ur Amphetamines Screen U Methamphetamin-MDMA U Benzodiazepines Scrn Urine Cocaine Screen U Cannabinoids Screen Ur Drug Screen Comment Ethyl Alcohol COVID-19 ([facility]) 04/12/21 04/12/21 04/12/21 13:00 13:00 13:00 WBC RBC Hgb Hct MCV MCH MCHC RDW Std Deviation RDW Coeff of Pilo Plt Count MPV Neut % (Auto) Absolute Neuts (auto) Absolute Lymphs (auto) Total Counted Neutrophils % (Manual) Band Neutrophils % Monocytes % (Manual) Metamyelocytes % Myelocytes % Blast Cells % Nucleated RBCs/100 WBC Diff Path Review Platelet Estimate RBC Morphology Anisocytosis PT 15.9 H INR 1.3 APTT 32.9 D-Dimer Quant (PE/DVT) Sodium Potassium Chloride Carbon Dioxide Anion Gap BUN Creatinine Estim Creat Clear Calc Est GFR (MDRD) Af Amer Est GFR (MDRD) Non-Af BUN/Creatinine Ratio Glucose Lactic Acid Calcium Total Bilirubin 0.60 Direct Bilirubin 0.28 AST 75 H ALT 60 Alkaline Phosphatase 121 H Troponin I High Sens Total Protein 8.0 Albumin 1.4 L Globulin 6.6 H Urine Color Urine Clarity Urine pH Ur Specific [place] Urine Protein Urine Glucose (UA) Urine Ketones Urine Occult Blood Urine Nitrite Urine Bilirubin Urine Urobilinogen Ur Leukocyte Esterase Urine RBC Urine WBC Ur Squamous Epith Cells Urine Bacteria Hyaline Casts Urine Mucus Urine Opiates Screen Urine Methadone Screen Ur Barbiturates Screen Ur Phencyclidine Scrn Ur Amphetamines Screen U Methamphetamin-MDMA U Benzodiazepines Scrn Urine Cocaine Screen U Cannabinoids Screen Ur Drug Screen Comment Ethyl Alcohol < 3.0 COVID-19 ([facility]) 04/12/21 04/12/21 04/12/21 16:18 16:18 16:27 WBC RBC Hgb Hct MCV MCH MCHC RDW Std Deviation RDW Coeff of Pilo Plt Count MPV Neut % (Auto) Absolute Neuts (auto) Absolute Lymphs (auto) Total Counted Neutrophils % (Manual) Band Neutrophils % Monocytes % (Manual) Metamyelocytes % Myelocytes % Blast Cells % Nucleated RBCs/100 WBC Diff Path Review Platelet Estimate RBC Morphology Anisocytosis PT INR APTT D-Dimer Quant (PE/DVT) Sodium Potassium Chloride Carbon Dioxide Anion Gap BUN Creatinine Estim Creat Clear Calc Est GFR (MDRD) Af Amer Est GFR (MDRD) Non-Af BUN/Creatinine Ratio Glucose Lactic Acid Calcium Total Bilirubin Direct Bilirubin AST ALT Alkaline Phosphatase Troponin I High Sens Total Protein Albumin Globulin Urine Color Yellow Urine Clarity Cloudy Urine pH 6.5 Ur Specific [place] 1.015 Urine Protein 30 H Urine Glucose (UA) Normal Urine Ketones Negative Urine Occult Blood 150 H Urine Nitrite Negative Urine Bilirubin Negative Urine Urobilinogen Normal Ur Leukocyte Esterase 500 H Urine RBC 0-5 SEEN Urine WBC 50-100 SEEN Ur Squamous Epith Cells 0-5 SEEN Urine Bacteria 2+ Hyaline Casts 0-5 SEEN Urine Mucus 0 SEEN Urine Opiates Screen NEGATIVE Urine Methadone Screen NEGATIVE Ur Barbiturates Screen NEGATIVE Ur Phencyclidine Scrn NEGATIVE Ur Amphetamines Screen POSITIVE H U Methamphetamin-MDMA POSITIVE H U Benzodiazepines Scrn NEGATIVE Urine Cocaine Screen NEGATIVE U Cannabinoids Screen NEGATIVE Ur Drug Screen Comment Ethyl Alcohol COVID-19 ([facility]) Not Detected 04/12/21 04/12/21 17:30 17:30 WBC RBC Hgb Hct MCV MCH MCHC RDW Std Deviation RDW Coeff of Pilo Plt Count MPV Neut % (Auto) Absolute Neuts (auto) Absolute Lymphs (auto) Total Counted Neutrophils % (Manual) Band Neutrophils % Monocytes % (Manual) Metamyelocytes % Myelocytes % Blast Cells % Nucleated RBCs/100 WBC Diff Path Review Platelet Estimate RBC Morphology Anisocytosis PT INR APTT D-Dimer Quant (PE/DVT) Sodium Potassium Chloride Carbon Dioxide Anion Gap BUN Creatinine Estim Creat Clear Calc Est GFR (MDRD) Af Amer Est GFR (MDRD) Non-Af BUN/Creatinine Ratio Glucose Lactic Acid 1.8 Calcium Total Bilirubin Direct Bilirubin AST ALT Alkaline Phosphatase Troponin I High Sens 432 H* Total Protein Albumin Globulin Urine Color Urine Clarity Urine pH Ur Specific [place] Urine Protein Urine Glucose (UA) Urine Ketones Urine Occult Blood Urine Nitrite Urine Bilirubin Urine Urobilinogen Ur Leukocyte Esterase Urine RBC Urine WBC Ur Squamous Epith Cells Urine Bacteria Hyaline Casts Urine Mucus Urine Opiates Screen Urine Methadone Screen Ur Barbiturates Screen Ur Phencyclidine Scrn Ur Amphetamines Screen U Methamphetamin-MDMA U Benzodiazepines Scrn Urine Cocaine Screen U Cannabinoids Screen Ur Drug Screen Comment Ethyl Alcohol COVID-19 ([facility]) Radiography Diagnostic Testing: Clinical Impression(s) from Imaging Studies Chest X-Ray 04/12/21 15:54 IMPRESSION: Mild right basilar infiltrate. Electronically Signed: Reinier Hillman DO at 16:10 EST , Chest CTA 04/12/21 16:59 IMPRESSION: 1. There is pulmonary embolism of the right upper lobe branch, right middle lobe branch, right lower lobe branch, left lower lobe branch, lingular branch, and left upper lobe branch. There is no saddle embolus. No heart strain. 2. There is bilateral pneumonia. Right pleural effusion. cf called. Electronically Signed: Ramesh Madrid MD at 18:46 EST , ADDENDUM: 04/12/21 1853 IMPRESSION: 1. There is pulmonary embolism of the right upper lobe branch, right middle lobe branch, right lower lobe branch, left lower lobe branch, lingular branch, and left upper lobe branch. There is no saddle embolus. No heart strain. 2. There is bilateral pneumonia. Right pleural effusion. cf called. NVeronica. : The above Results were Read Back by Ramesh Madrid MD to Pedro Pablo Dickson DO, and understanding confirmed on 04/12/2021 18:46:54 (ET). Electronically Signed: Ramesh Madrid MD at 18:46 EST , Venous Duplex 04/12/21 18:54 IMPRESSION: Deep venous thrombosis of the right peroneal and gastrocnemius veins. Deep venous thrombosis of the left superficial femoral and popliteal as well as infrapopliteal veins. Right superficial venous thrombosis. Electronically Signed: Reinier Hillman DO at 20:38 EST , Discharge Plan Disposition Disposition: Acute Care Hospital [facility] Discharge Date/Time: 04/12/21 20:59
[2021-04-12 16:19] LABS: Anion Gap 10 (5-15); BUN 46 mg/dL (7-18); BUN/Creat Ratio 35.1 RATIO (10-20); Calcium,Total 8.4 mg/dL (8.5-10.1); Chloride 98 mmol/L (98-107); Creatinine, Serum 1.31 mg/dL (0.70-1.30); EST Glomerular Filtration Rate 60 mL/min (>60); Est Glom Filt Rate - Afr Amer 72 mL/min (>60); Estimated Creatinine Clearance 65.46 ml/min; Glucose 144 mg/dL (74-106); Potassium 5.2 mmol/L (3.5-5.1); Sodium Level 132 mmol/L (136-145); Troponin-I HS 479 pg/mL (3.0-78.0)
[2021-04-12 16:23] LABS: Mucous, Urine 0 SEEN /hpf (<or=2+)
[2021-04-12 16:28] LABS: Color, Urine Yellow (Yellow); Glucose, Dipstick Normal (Normal); Ketone-Dipstick Negative (Negative); Leukocyte Esterase-Dipstick 500 /ul (Negative); Nitrite-Dipstick Negative (Negative); Occult Blood-Urine 150 /ul (Negative); Protein-Dipstick 30 mg/dl (Negative); Specific Gravity, Urine 1.015 (1.002-1.030); Urine Bilirubin Dipstick Negative (Negative); Urine Clarity Cloudy (Clear); Urine Urobilinogen Normal (Normal); Urine pH 6.5 (5.0 - 8.0)
[2021-04-12 16:36] LABS: Hematocrit 23.7 % (40-54); Hemoglobin 6.9 g/dL (13.0-16.5); Mean Corp Hgb Conc 29.1 g/dL (32-36); Mean Corpuscular Hgb 20.2 pg (27.0-32.0); Mean Corpuscular Volume 69.5 fL (80-94); Mean Platelet Vol. 8.9 fl (6.2-12.0); POSITIVE COUNT YES; POSITIVE DIFFERENTIAL YES; POSITIVE MORPHOLOGY YES; Platelet Count 560 K/mm3 (150-450); RBC Distribution Width CV 18.6 % (11.6-14.6); RBC Distribution Width SD 44.9 fl (35.1-43.9); Red Blood Count 3.41 M/mm3 (4.6-6.2)
[2021-04-12 16:42] LABS: AST(SGOT) 75 U/L (15-37); Alanine Aminotransfer ALT/SGPT 60 U/L (16-61); Albumin, Serum 1.4 g/dL (3.2-5.0); Alkaline Phosphatase 121 U/L (45-117); Bilirubin, Direct 0.28 mg/dL (0.00-0.30); Globulin 6.6 g/dL (2.2-4.2)
[2021-04-12] MEDS: 0.9% Normal Saline 1,000 ML 999 ML IV ×2 (16:43→17:43)
[2021-04-12] MEDS: Ondansetron 4 MG/2 ML Vial IV (16:43)
[2021-04-12 16:44] LABS: Alcohol, Blood (Medical)-Serum < 3.0 mg/dL
[2021-04-12] MEDS: Morphine 4 MG/ML Syringe IV (16:44)
[2021-04-12 16:49] LABS: Differential Indicated MANUAL DIFF
[2021-04-12 16:55] LABS: Bacteria 2+ /hpf (None Seen); Hyaline Cast 0-5 SEEN /lpf (0-5); Red Blood Cells-Urine 0-5 SEEN /hpf (0-5); Squamous Epithelial Cells - UA 0-5 SEEN /hpf (0-5); White Blood Cells 50-100 SEEN /hpf (0-5)
[2021-04-12 16:58] LABS: D-Dimer Quantitative (DVT/PE) 10.97 FEU/ug/m (0.27-0.49)
--- NOTE | 2021-04-12 16:59 | CT_ITS ---
We are attempting to reach an attending provider to discuss findings. An addendum with communication details will be sent when the communication is complete. EXAM: CT ANGIOGRAPHY CHEST WITHOUT AND WITH INTRAVENOUS CONTRAST CLINICAL INDICATION: chest pain SOB X 3 WEEKS TECHNIQUE: Helically acquired angiography images were obtained of the chest without and with intravenous contrast. This CT exam was performed using one or more of the following dose reduction techniques: automated exposure control, adjustment of the mA and/or kV according to patient size, and/or use of iterative reconstruction technique. This report was created using [employer] report generation technology. MIP reconstructed images were created and reviewed. CONTRAST: IV 100mL [id number] COMPARISON: 9..19 FINDINGS: PULMONARY ARTERIES: There is pulmonary embolism of the right upper lobe branch, right middle lobe branch, right lower lobe branch, left lower lobe branch, lingular branch, and left upper lobe branch. There is no saddle embolus. No heart strain. Normal in caliber. AORTA: There is atherosclerotic calcification of the aortic arch with tortuosity and elongation of the aortic arch and descending thoracic aorta. Normal in caliber. No evidence of dissection. GREAT VESSELS OF AORTIC ARCH: Unremarkable. Normal in caliber. No evidence of dissection. LUNGS AND PLEURAL SPACES: There is bilateral pneumonia. Right pleural effusion. No mass. HEART: There are calcifications of the coronary arteries. No pericardial effusion. No signs of right heart strain, ratio of right ventricle to left ventricle measures less than 1. MEDIASTINUM: Unremarkable. No mediastinal or hilar adenopathy. Esophagus is unremarkable. No hiatal hernia. THYROID: Unremarkable. No thyroid lesions. BONES/JOINTS: There are degenerative findings of the thoracic spine. No suspicious lytic or blastic abnormality. CT/CTA Chest W/WO Contrast IMPRESSION: 1. There is pulmonary embolism of the right upper lobe branch, right middle lobe branch, right lower lobe branch, left lower lobe branch, lingular branch, and left upper lobe branch. There is no saddle embolus. No heart strain. 2. There is bilateral pneumonia. Right pleural effusion. cf called. Electronically Signed: Ramesh Madrid MD at 18:46 EST Reading Location ID and State: [facility] / [place] , Service support ,
[2021-04-12 17:01] LABS: Amphetamine Urine VISTA POSITIVE (<1000 ng/mL); Barbiturate Urine VISTA NEGATIVE (< 200 ng/mL); Benzodiazepine Urine VISTA NEGATIVE (< 200 ng/mL); Cocaine Urine VISTA NEGATIVE (< 300 ng/mL); Ecstacy Urine VISTA POSITIVE (< 500 ng/mL); Methadone Urine VISTA NEGATIVE (< 300 ng/mL); PCP Urine VISTA NEGATIVE (< 25 ng/mL); THC Urine VISTA NEGATIVE (< 50 ng/mL); Vista UDS pH Range 6
[2021-04-12 17:30] LABS: Blast 1 % (0-0); Metamyelocyte 5 % (0-1); Monocyte 4 % (0-10); Myelocyte 2 % (0-0); Neutrophil-Band 19 % (0-5); Neutrophil-Segmented 69 % (47-70); Nucleated Red Bld Cells,Manual 3 % (0-5); Total Cells Counted 100 (MANUAL DIFF)
[2021-04-12 17:34] LABS: Anisocytosis 1+; Platelet Estimate MOD INC (ADEQ); Red Cell Morphology N CHROM NORMAL (NORM C&C)
[2021-04-12] MEDS: Heparin Injection (Vial) 5,000 UNIT/ML VIAL 6000 UNIT IV (17:40)
--- NOTE | 2021-04-12 18:08 | ED.RN ---
per Dr. Dickson, zosyn was supposed to be a 30 minute transfusion not a 4 hr transfusion. rate changed and pharmacy notified of change.
[2021-04-12 18:12] LABS: International Normalized Ratio 1.3; Partial Thromboplast Time 32.9 Seconds (24.1-36.2); Prothrombin Time (Protime)PT. 15.9 SECONDS (11.7-14.9)
[2021-04-12 18:24] LABS: Troponin-I HS 432 pg/mL (3.0-78.0)
[2021-04-12 18:27] LABS: Lactic Acid 1.8 mmol/L (0.4-1.9)
--- NOTE | 2021-04-12 18:54 | US_ITS ---
STUDY: VENOUS DOPPLER ULTRASOUND - BILATERAL LOWER EXTREMITIES REASON FOR EXAM: Male, 60 years old. undefined -- PULMONARY EMBOLISM TECHNIQUE: Ultrasound evaluation of the deep vein system to include orourke-scale imaging and compression was performed. Orourke-scale imaging and Doppler sonographic evaluation, including duplex spectral analysis and qualitative color flow sonography, was performed. COMPARISON: None. FINDINGS: RIGHT LEG Common Femoral Vein: Normal compression, spontaneity and augmentation. Normal color Doppler. Common Femoral Vein/Greater Saphenous Junction: Normal compression. Femoral Proximal: Normal compression. Femoral Middle: Normal compression, spontaneity and augmentation. Normal color Doppler. Femoral Distal: Normal compression. Normal color Doppler. Popliteal Vein: Normal compression, spontaneity and augmentation. Normal color Doppler. Posterior Tibial Vein: Normal compression. Peroneal Vein: No compression. LEFT LEG Common Femoral Vein: Normal compression, spontaneity and augmentation. Normal color Doppler. Common Femoral Vein/Greater Saphenous Junction: Normal compression. Femoral Proximal: Normal compression. Normal color Doppler. Femoral Middle: No compression. No color Doppler. Femoral Distal: No compression. Popliteal Vein: No compression. No color Doppler. Posterior Tibial Vein: No compression. Peroneal Vein: No compression. US/Venous Duplex Imag/Emilio Extrem IMPRESSION: Deep venous thrombosis of the right peroneal and gastrocnemius veins. Deep venous thrombosis of the left superficial femoral and popliteal as well as infrapopliteal veins. Right superficial venous thrombosis. Electronically Signed: Reinier Hillman DO at 20:38 EST Reading Location ID and State: [facility] / [place] Tel [phone], Service support ,
--- NOTE | 2021-04-12 19:38 | PCM.HP.STD ---
[facility] - General General Date of Admission: 04/12/21 Date of Service: 04/12/21 Chief Complaint: Generalized weakness, inability to walk, recurrent falls, chest pain?3 weeks HPI Narrative ROMEO DOVER, is a 60 M who presents with above. Patient is a 60-year-old male with past medical history of CAD status post DE, hypertension, COPD/asthma overlap syndrome, chronic smoker, chronic back pain who comes in with complaints of generalized weakness, inability to walk, recurrent falls, chest pain ongoing for 3 weeks. Patient is a poor historian; appeared relatively lethargic and unwell. He stated that he lives with his roommate. He fell down 3 weeks ago and laid on the floor for couple of days. His roommate tried to help him to his bed. He has been falling. She however got irritated that she has to keep her per him up to bed. She has been giving him food and drink sometimes. He mostly has been lying on the floor or in bed. He admits to chest pain and progressive shortness of breath. He denied any fever or chills or diarrhea. He admits to some nausea. He denies any melena stools or hematochezia. He admits to occasional cough, productive of dark brown sputum. Patient admits to using illicit drugs - methamphetamines and heroin. He also smokes about 3 packs a day. Vitals in the ED showed blood pressure 129/104, temperature 96.2 F, heart rate 107, respiratory rate 28, SPO2 93% on room air. WBC count of 50,000,19% bandemia, hemoglobin 6.9, platelet count 560, D-dimer was 10.9, sodium 132, potassium 5.2, chloride 98, bicarbonate 24, BUN 46, creatinine 1.31, lactic acid 1.8, troponin 432, albumin 1.4 Admitting chest x-ray shows mild right basilar infiltrate. CTA of the chest shows extensive PE, no saddle embolus or heart strain. Bilateral pneumonia, right pleural effusion. Doppler ultrasound of the lower extremity shows right peroneal gastrocnemius vein DVT, DVT of the left superficial femoral and popliteal as well as from popliteal veins. Right superficial venous thrombosis. [facility] Medical History (Updated 04/12/21 @ 21:[address] Cristel Chu MD) Atherosclerotic heart disease of [place] coronary artery with other forms of angina pectoris Chest pain Chronic pain COPD (chronic obstructive pulmonary disease) Hypertension Old myocardial infarction Shortness of breath Tobacco abuse Home Medications NK 04/12/21 [History Last Taken Unknown] Allergy/AdvReac Type Severity Reaction Status Date / Time aspirin Allergy Hives Verified 04/12/21 14:55 Sulfa (Sulfonamide Allergy Hives Verified 04/12/21 14:55 Antibiotics) epinephrine AdvReac Anaphylaxis Verified 04/12/21 14:55 Bee stings Allergy Anaphylaxis Uncoded 04/12/21 14:55 Family History (Updated 04/12/21 @ 20:[address] Cristel Chu MD) Father CVA (cerebral vascular accident) COPD (chronic obstructive pulmonary disease) Mother CVA (cerebral vascular accident) Surgical History no surgical history no surgical history Social History (Updated 04/12/21 @ 20:[address] Cristel Chu MD) household members: other details: room mate Smoking Status: Heavy Smoker (>10/day) second hand exposure: Yes substance use type: heroin and amphetamines ROS ROS Narrative Constitutional: Reports: Malaise, Weakness, Fatigue. Denies: Anorexia, Chills, Fever, Night Sweats, Weight Change Eyes: Denies: Blurred vision, Cataracts, Conjunctivae Inflammation, Pain, Redness, Vision Change HEENT: Denies: Difficulty Hearing, Difficulty Swallowing, Head Aches, Hearing Changes, Sinus Congestion, Sinus Drainage Cardiovascular: Admits to chest pain denies:Orthopnea, Palpitations Respiratory: Admits to cough, Shortness of breath at rest, Sputum production Gastrointestinal: Admits to nausea denies: Abdominal Pain, Vomiting Genitourinary: Denies: Dysuria Musculoskeletal: Admits to bilateral leg swelling denies: Joint stiffness, Joint swelling Skin: Decubitus ulcers on the bottles Neurological: Admits to generally feeling weak denies: Numbness, Tingling, Focal weakness Vital Signs Vital Signs Vital Signs: 04/12/21 14:56 04/12/21 15:03 04/12/21 15:45 Temperature 96.2 F L Temperature Source Temporal Pulse Rate 107 H Respiratory Rate 28 H Respiratory Effort Short of Breath Respiratory Pattern Tachypnea Blood Pressure 129/104 H Blood Pressure Mean 112 Pulse Ox 93 92 Oxygen Delivery Method Room Air Room Air Oxygen Flow Rate (L/min) 04/12/21 16:00 04/12/21 17:00 04/12/21 18:02 Temperature 96.5 F L 97 F L 97.1 F L Temperature Source Temporal Temporal Temporal Pulse Rate 100 102 H 103 H Respiratory Rate 20 H 15 18 Respiratory Effort Respiratory Pattern Blood Pressure 123/83 H 109/97 H 135/81 H Blood Pressure Mean 96 101 99 Pulse Ox 95 95 97 Oxygen Delivery Method Room Air Nasal Cannula Room Air Oxygen Flow Rate (L/min) 2 2 04/12/21 19:00 Temperature 97.1 F L Temperature Source Temporal Pulse Rate 99 Respiratory Rate 16 Respiratory Effort Respiratory Pattern Blood Pressure 138/108 H Blood Pressure Mean 118 Pulse Ox Oxygen Delivery Method Room Air Oxygen Flow Rate (L/min) Weight Weight: 89 kg Body Mass Index (BMI) 27.3 Physical Exam Narrative Physical exam: General: Alert, Oriented x3, Cooperative, appears chronically unwell, unkempt, looks older than age, on 2 L of oxygen HEENT: Atraumatic Oral: Dry mucosa Neck: Supple Lungs: Diminished to auscultation, transmitted sounds Cardiovascular: HS I+II, regular, no murmurs Abdomen: Bowel Sounds Present, Soft, Non Tender Extremities: Bilateral leg edema +3 Skin: Coccygeal and left buttocks decubitus ulcers, unstageable Neurological: Grossly intact Psych/Mental Status: Appropriate Results Lab / Micro Data Result Diagrams: 04/12/21 13:00 04/12/21 13:00 Labs: Laboratory Results - last 24 hr 04/12/21 13:00: WBC 50.0 H*, RBC 3.41 L, Hgb 6.9 L, Hct 23.7 L, MCV 69.5 L, MCH 20.2 L, MCHC 29.1 L, RDW Std Deviation 44.9 H, RDW Coeff of [place] 18.6 H, Plt Count 560 H, MPV 8.9, Neut % (Auto) Not Reportable, Absolute Neuts (auto) 44.0 H, Absolute Lymphs (auto) 0.00 L, Total Counted 100, Neutrophils % (Manual) 69, Band Neutrophils % 19 H, Monocytes % (Manual) 4, Metamyelocytes % 5 H, Myelocytes % 2 H, Blast Cells % 1 H*, Nucleated RBCs/100 WBC 3, Diff Path Review May foll, Platelet Estimate MOD INC, RBC Morphology N CHROM, Anisocytosis 1+ 04/12/21 13:00: D-Dimer Quant (PE/DVT) 10.97 H* 04/12/21 13:00: Sodium 132 L, Potassium 5.2 H, Chloride 98, Carbon Dioxide 24.0, Anion Gap 10, BUN 46 H, Creatinine 1.31 H, Estim Creat Clear Calc 65.46, Est GFR (MDRD) Af Amer 72, Est GFR (MDRD) Non-Af 60, BUN/Creatinine Ratio 35.1 H, Glucose 144 H, Calcium 8.4 L, Troponin I High Sens 479 H* 04/12/21 13:00: PT 15.9 H, INR 1.3, APTT 32.9 04/12/21 13:00: Ethyl Alcohol < 3.0 04/12/21 13:00: Total Bilirubin 0.60, Direct Bilirubin 0.28, AST 75 H, ALT 60, Alkaline Phosphatase 121 H, Total Protein 8.0, Albumin 1.4 L, Globulin 6.6 H 04/12/21 16:18: Urine Opiates Screen NEGATIVE, Urine Methadone Screen NEGATIVE, Ur Barbiturates Screen NEGATIVE, Ur Phencyclidine Scrn NEGATIVE, Ur Amphetamines Screen POSITIVE H, U Methamphetamin-MDMA POSITIVE H, U Benzodiazepines Scrn NEGATIVE, Urine Cocaine Screen NEGATIVE, U Cannabinoids Screen NEGATIVE, Ur Drug Screen Comment 04/12/21 16:18: Urine Color Yellow, Urine Clarity Cloudy, Urine pH 6.5, Ur Specific [place] 1.015, Urine Protein 30 H, Urine Glucose (UA) Normal, Urine Ketones Negative, Urine Occult Blood 150 H, Urine Nitrite Negative, Urine Bilirubin Negative, Urine Urobilinogen Normal, Ur Leukocyte Esterase 500 H, Urine RBC 0-5 SEEN, Urine WBC 50-100 SEEN, Ur Squamous Epith Cells 0-5 SEEN, Urine Bacteria 2+, Hyaline Casts 0-5 SEEN, Urine Mucus 0 SEEN 04/12/21 17:30: Troponin I High Sens 432 H* 04/12/21 17:30: Lactic Acid 1.8 Radiology Impression Chest X-Ray 04/12/21 15:54 IMPRESSION: Mild right basilar infiltrate. Electronically Signed: Reinier Hillman DO at 16:10 EST Reading Location ID and State: [facility] / [place] Tel [phone], Service support , Chest CTA 04/12/21 16:59 IMPRESSION: 1. There is pulmonary embolism of the right upper lobe branch, right middle lobe branch, right lower lobe branch, left lower lobe branch, lingular branch, and left upper lobe branch. There is no saddle embolus. No heart strain. 2. There is bilateral pneumonia. Right pleural effusion. cf called. Electronically Signed: Ramesh Madrid MD at 18:46 EST , ADDENDUM: 04/12/21 1853 IMPRESSION: 1. There is pulmonary embolism of the right upper lobe branch, right middle lobe branch, right lower lobe branch, left lower lobe branch, lingular branch, and left upper lobe branch. There is no saddle embolus. No heart strain. 2. There is bilateral pneumonia. Right pleural effusion. cf called. N.B. : The above Results were Read Back by Ramesh Madrid MD to Pedro Pablo Dickson,DO, and understanding confirmed on 04/12/2021 18:46:54 (ET). Electronically Signed: Ramesh Madrid MD at 18:46 EST , Assessment & Plan Assessment/Plan (1) Sepsis: QUALIFIERS: Acute renal failure type: unspecified Sepsis acute organ dysfunction status: with acute organ dysfunction Sepsis type: sepsis due to unspecified organism Severe sepsis acute organ dysfunction type: acute renal failure Severe sepsis shock status: without septic shock Qualified Code(s): A41.9 - Sepsis, unspecified organism; R65.20 - Severe sepsis without septic shock; N17.9 - Acute kidney failure, unspecified (2) LAVELL (acute kidney injury): (3) Decubitus ulcers: QUALIFIERS: Pressure injury location: sacral region Pressure injury stage: unstageable Qualified Code(s): L89.150 - Pressure ulcer of sacral region, unstageable (4) Acute pulmonary embolism: QUALIFIERS: Acute cor pulmonale presence: without acute cor pulmonale Pulmonary embolism type: other Qualified Code(s): I26.99 - Other pulmonary embolism without acute cor pulmonale (5) Acute deep vein thrombosis (DVT): QUALIFIERS: Affected thrombotic vein of extremity: other lower extremity vein DVT location: lower extremity Laterality: bilateral Qualified Code(s): I82.493 - Acute embolism and thrombosis of other specified deep vein of lower extremity, bilateral PLAN: 1. Severe sepsis secondary to bilateral pneumonia/sacral/buttocks decubitus ulcers/UTI Patient with leukocytosis tachycardia, acute kidney injury, lactic acid is 1.8 Started on IV vancomycin and Zosyn; continue same Follow-up on blood cultures, urine cultures [employer] [address] Magistrate consult Continue on IV fluids 2. Hypoxia secondary to acute bilateral PE/bilateral pneumonia, patient is on 2 L of oxygen Continue to wean off oxygen, encourage use of incentive spirometer 3. Acute bilateral PE/bilateral DVT, provoked secondary to immobilization ongoing for 3 weeks EKG shows sinus tachycardia, elevated troponins Started on heparin drip, continue same Check 2D echo, trend troponins 4. Anemia, admitting hemoglobin is 6.9, previous hemoglobin 2019 was 14.6 No history of melena, patient presents with constipation Check iron stores, stool for occult blood ,IV PPI, transfuse 2 units of packed RBCs, H&H every 6h 5. LAVELL, prerenal secondary to #1 and #2/dehydration Previous creatinine was less than 1, admitted creatinine 1.31 Repeat labs in the a.m. 6. Hyponatremia/Hyperkalemia secondary to #4, will trend 7. Sacral and left buttock decubitus ulcer, unstageable Plastic surgery consult, wound RN consult, frequent turning 8. Nicotine abuse/polysubstance use, advised to quit, continue replacement Urine tox positive for amphetamines 9. Recurrent falls/debility related to the above PT/OT to evaluate and treat Social work consult for discharge planning 10. DVT prophylaxis?on heparin subcu 11. GI prophylaxis?on PPI 12. CODE STATUS?full code I discussed and explained in details the various types of CODE STATUS-full code, DNR CCA, DNR CC. Patient chose to be full code and wants everything done to keep him alive including being kept on life support. Time spent discussing CODE STATUS 17 minutes Charges/Coding Visit Charges Inpatient E&M: 06350 Init Hosp L3 Procedures Hospitalists Procedures: 38383 Advncd Care Plan 30 Min
--- NOTE | 2021-04-12 20:54 | ECHOD_ITS ---
Reason For Study: extensive PE & DVT. Procedure This was a 2D Doppler, Color Flow transthoracic echocardiogram. The study was technically difficult. D/T patient's rocking and moaning throughout exam. Exam performed portable in patient room. Left Ventricle Normal LV size. The estimated ejection fraction is 65 %. No evidence for diastolic dysfunction. No regional wall motion abnormalities noted. Right Ventricle Normal RV size. Normal systolic function. Atria Normal left atrium. Normal right atrium. No doppler evidence for ASD. Mitral Valve There is moderate to severe mitral annular calcification. There is no mitral valve stenosis. No mitral valve insufficiency. Tricuspid Valve There is no tricuspid stenosis. Unable to estimate RV systolic pressure due to insufficient tricuspid regurgitant envelope. Aortic Valve Trisinus/trileaflet aortic valve. There is no aortic stenosis. No aortic valve insufficiency. Pulmonic Valve There is no pulmonic valvular stenosis. No pulmonic valve insufficiency. Great Vessels Normal aortic root. Pericardium/Pleural No pericardial effusion. MMode/2D Measurements & Calculations LVIDd: 5.2 cm IVSd: 1.2 cm Ao root diam: 3.7 cm LVIDs: 3.8 cm LVPWd: 1.3 cm LA dimension: 4.5 cm RVDd: 3.6 cm FS: 27.0 % LAV(MOD-bp): 60.9 ml LA A4 area: 19.6 cm2 RA A4 area: 14.3 cm2 LAV(MOD-bp) Indexed: 29.1 ml/m2 LAV(MOD-sp2): 60.0 ml LAV(MOD-sp4): 60.5 ml Time Measurements MV dec time: 0.16 sec Doppler Measurements & Calculations MV E max jose: 113.7 cm/sec Lat Peak E' Jose: 14.1 cm/sec Med Peak E' Jose: 13.9 cm/sec MV A max jose: 135.4 cm/sec E/E' lat: 8.0 E/E' med: 8.2 MV E/A: 0.84 Ao V2 max: 191.2 cm/sec LV V1 max: 132.6 cm/sec PA V2 max: 110.1 cm/sec Ao max P.6 mmHg LV V1 max P.0 mmHg ECHO/Echo Complete Interpretation Summary The estimated ejection fraction is 65 %. No evidence for diastolic dysfunction. Ordering Physician: Cristel Chu Referring Physician: EKATERINA PCP Performed By: Anika Sales, KASEY, RVT
[2021-04-12] MEDS: Lactated Ringers 1,000 ML 150 ML IV (22:03)
[2021-04-12 22:29] LABS: Iron 13 ug/dL (65-175); Iron Binding Capacity,Total 174 ug/dL (250-450); PERCENT IRON SATURATION 7.5 % (15.0-55.0)
[2021-04-12 22:30] LABS: Partial Thromboplast Time 52.3 Seconds (24.1-36.2); Troponin-I HS 421 pg/mL (3.0-78.0)
[2021-04-12 22:32] LABS: Hematocrit 19.3 % (40-54); POSITIVE COUNT YES
[2021-04-12 22:33] LABS: Hemoglobin 5.8 g/dL (13.0-16.5)
[2021-04-12 22:54] LABS: BNP,B-Type NATRIURETIC PEPTIDE 176.2 pg/mL (0-100)
--- NOTE | 2021-04-12 22:55 | PCM.RX.CS ---
Consult Pharmacy has been consulted to manage selected antiobiotic: Vancomycin Type of Consult: New start Suspected Infection: Sepsis, Pneumonia Prior Doses of Antibiotics Received/Current Regimen: Medications Vancomycin HCl (Vancomycin) 1,000 mg in 200 mls @ 200 mls/hr IV Q12H JOHN Discontinued Medications Vancomycin HCl 1,250 mg/ (Sodium Chloride) 275 mls @ 167 mls/hr IV X1 ONE Stop: 04/12/21 18:21 Last Admin: 04/12/21 20:56 Dose: Infused Labs: Sodium 132 mmol/L (136-145) L 04/12/21 13:00 Potassium 5.2 mmol/L (3.5-5.1) H 04/12/21 13:00 Chloride 98 mmol/L (98-107) 04/12/21 13:00 Carbon Dioxide 24.0 mmol/L (21.0-32.0) 04/12/21 13:00 Anion Gap 10 (5-15) 04/12/21 13:00 BUN 46 mg/dL (7-18) H 04/12/21 13:00 Creatinine 1.31 mg/dL (0.70-1.30) H 04/12/21 13:00 Est GFR (MDRD) Af Amer 72 mL/min (>60) 04/12/21 13:00 Est GFR (MDRD) Non-Af 60 mL/min (>60) 04/12/21 13:00 BUN/Creatinine Ratio 35.1 RATIO (10-20) H 04/12/21 13:00 Glucose 144 mg/dL (74-106) H 04/12/21 13:00 Microbiology: Microbiology 04/12/21 20:05 Stool Stool Occult Blood (JOSÉ MANUEL) - Final Occult Blood Positive Weight used for dosin.4 kg Estimated Creatinine Clearance: 65 Goal Trough: 15-20 mcg/mL Pharmacy Plan for Drug Dosing: Pharmacy Service will continue to monitor and adjust dosing as required. Follow-Up Labs: Trough Vancomycin Labs to be done on [date and time ordered]: 04/14/21 @5434
[2021-04-13] VITALS (35 sets, daily range): BP systolic 82–126; BP diastolic 58–96; PULSE 92–108; RESP 14–28; TEMP 36.1–37.1; O2SAT 91–100
[2021-04-13 05:37] LABS: Hematocrit 22.8 % (40-54); Hemoglobin 7.2 g/dL (13.0-16.5); Mean Corp Hgb Conc 31.6 g/dL (32-36); Mean Corpuscular Hgb 23.2 pg (27.0-32.0); Mean Corpuscular Volume 73.5 fL (80-94); Mean Platelet Vol. 8.8 fl (6.2-12.0); POSITIVE COUNT YES; POSITIVE DIFFERENTIAL YES; POSITIVE MORPHOLOGY YES; Platelet Count 432 K/mm3 (150-450); RBC Distribution Width CV 21.8 % (11.6-14.6); RBC Distribution Width SD 56.2 fl (35.1-43.9)
[2021-04-13 05:42] LABS: Differential Indicated MANUAL DIFF
[2021-04-13 05:47] LABS: Partial Thromboplast Time 35.7 Seconds (24.1-36.2)
[2021-04-13 05:56] LABS: Total Cells Counted 100 (MANUAL DIFF); White Blood Count 42.8 K/mm3 (4.4-11.0)
[2021-04-13 05:57] LABS: ALB/GLOB Ratio 0.2 RATIO (0.9-2.4); AST(SGOT) 55 U/L (15-37); Alanine Aminotransfer ALT/SGPT 49 U/L (16-61); Albumin, Serum 1.2 g/dL (3.2-5.0); Alkaline Phosphatase 96 U/L (45-117); Anion Gap 4 (5-15); BUN 39 mg/dL (7-18); Calcium,Total 7.5 mg/dL (8.5-10.1); Chloride 102 mmol/L (98-107); EST Glomerular Filtration Rate 81 mL/min (>60); Est Glom Filt Rate - Afr Amer 99 mL/min (>60); Estimated Creatinine Clearance 85.76 ml/min; Globulin 5.7 g/dL (2.2-4.2); Glucose 95 mg/dL (74-106); Lymphocyte 5 % (19-41); Monocyte 0 % (0-10); Myelocyte 1 % (0-0); Neutrophil-Band 15 % (0-5); Neutrophil-Segmented 79 % (47-70); Nucleated Red Bld Cells,Manual 3 % (0-5); Platelet Estimate ADEQUATE (ADEQ); Potassium 4.4 mmol/L (3.5-5.1); Protein, Total 6.9 g/dL (6.4-8.2); Sodium Level 134 mmol/L (136-145)
[2021-04-13 05:58] LABS: Anisocytosis 1+; Hypochromasia 2+; Microcytosis 1+
[2021-04-13 06:00] LABS: Absolute Neutrophil Count 40.3 X10^3/uL (2.0-7.7); Neutrophil # 40.26 X10^3/uL (2.7-7.7)
[2021-04-13 06:01] LABS: Absolute Lymphocyte Count 2.14 X10^3/uL (0.83-4.51); Lymphocyte # 2.14 X10^3/ul (0.83-4.51)
[2021-04-13] MEDS: Vancomycin IV 1,000 MG/200 ML BAG 200 MG IV ×2 (06:23→19:57)
--- NOTE | 2021-04-13 07:06 | CON.PCM.CC_ITS ---
Assessment & Plan Assessment/Plan (1) Sepsis: QUALIFIERS: Sepsis type: sepsis due to unspecified organism Sepsis acute organ dysfunction status: with acute organ dysfunction Severe sepsis acute organ dysfunction type: acute renal failure Acute renal failure type: unspecified Severe sepsis shock status: without septic shock Qualified Code(s): A41.9 - Sepsis, unspecified organism; R65.20 - Severe sepsis without septic shock; N17.9 - Acute kidney failure, unspecified (2) LAVELL (acute kidney injury): (3) Decubitus ulcers: QUALIFIERS: Pressure injury location: sacral region Pressure injury stage: unstageable Qualified Code(s): L89.150 - Pressure ulcer of sacral region, unstageable (4) Acute pulmonary embolism: QUALIFIERS: Pulmonary embolism type: other Acute cor pulmonale presence: without acute cor pulmonale Qualified Code(s): I26.99 - Other pulmonary embolism without acute cor pulmonale (5) Acute deep vein thrombosis (DVT): QUALIFIERS: DVT location: lower extremity Affected thrombotic vein of extremity: other lower extremity vein Laterality: bilateral Qualified Code(s): I82.493 - Acute embolism and thrombosis of other specified deep vein of lower extremity, bilateral PLAN: RECOMMENDATIONS: 1. Continue empiric antibiotics pending cultures 2. Await echocardiogram for potential endocarditis 3. Continue heparin drip, possible IVC filter 4. Monitor H&H closely 5. Await plastics evaluation of sacral ulcer 6. Continue aggressive fluid resuscitation 7. Monitor for signs and symptoms of refeeding syndrome and withdraw 8. Bronchodilators for probable COPD 9. Continue to monitor in intensive care unit. High clinical suspicion for decompensation in the next 24 to 48 hours. IMPRESSIONS: 1. Severe sepsis from multiple sites Patient with multiple possible sites including bilateral infiltrates, decubitus ulcers and UTI. Patient growing gram-positive cocci in less than 12 hours in all blood culture bottles. Patient does have DVTs, but cannot exclude embolism from bacteremia as a secondary cause of pneumonia. Patient will need to be evaluated for endocarditis. Patient is appropriately on vancomycin and Zosyn for now. Continue with aggressive fluid resuscitation. No need for pressors at this time. Patient is on a heparin drip, but appears to be tolerating this intervention. 2. Acute hypoxic respiratory insufficiency secondary to bilateral PE with pneumonia Patient does have a smoking history. Some concern for concomitant COPD. Patient was guaiac positive with anemia on presentation. We will continue with heparin drip as this can be continued if patient develops bleeding complications . Patient does not appear to be fluid overloaded at this time, so we will continue IV fluids. Clinical suspicion for elevated troponin secondary to renal dysfunction and supply demand mismatch. 3. Anemia Likely multifactorial. Patient was occult stool positive. Patient likely also has an element of iron deficiency secondary to malnutrition. Patient responded to blood transfusions. We will continue on heparin drip. Await iron studies. May need IVC filter if patient starts to have bleeding complications. 4. Acute kidney injury Previous creatinine less than 1. Patient admitted with a creatinine of 1.31. Patient has received significant fluid resuscitation with improvement in creatinine. Clinical suspicion for prerenal etiology secondary to problem #1 and dehydration. No indication for renal replacement therapy at this time. 5. Unstageable decubitus sacral ulcer/left buttock High clinical suspicion patient will require debridement. Plastic surgery has been consulted. Cannot exclude an element of osteomyelitis leading to problem #1. Await wound and plastic evaluation. 6. Polysubstance abuse/recurrent falls/debility Complicates care, management, recovery and prognosis. Patient is a full code at this time. Clinical suspicion for an element of depression leading to polysubstance abuse. Social work and case management will be made aware for outpatient planning. HPI Consult Data Date of Consult: 04/13/21 HPI Narrative HPI Narrative: ROMEO DOVER is a 60 M, with past medical history listed below, who presents to [facility] on 04/12/2021 secondary to reported chest pain and shortness of breath. Patient reportedly had a well check by police and was found to be doing methamphetamine and heroin. Patient had reported chest pain and was feeling generalized weakness. Patient reportedly has been doing drugs secondary to the of his and mother, in addition to reported sacral and buttock pain. Patient reportedly had urinated on himself while in route to the ER. In the ER, patient was afebrile, but tachycardic at 107 bpm. Patient was tachypneic at 28 breaths/min, but saturating well on room air initially. Patient did require 2 L nasal cannula. Laboratory work-up showed a white blood cell count of 50, hemoglobin of 6.9 and platelet count of 560. Patient did have a significant left shift noted. Patient also had a D-dimer of 10.97, potassium of 5.2 and a creatinine of 1.3. Troponin was elevated at 479 and LFTs were remarkable only for a slightly elevated alkaline phosphatase of 121 and an albumin of 1.4. Alcohol level was 0. Urinalysis showed significant leukocyte esterase, white blood cells and bacteria. Tox screen was positive for methamphetamines. Covid screen was negative. Chest x-ray showed a mild right basilar infiltrate, but a subsequent CTA of the chest showed multiple segmental emboli, bilateral infiltrates and a small right pleural effusion. Lower extremity Dopplers showed multiple DVTs. Patient was transfused packed red blood cells, given Protonix and antibiotics. Patient subsequently admitted to the intensive care unit for further monitoring Since being in the intensive care unit, patient has remained relatively hemody namically stable. Patient is requiring 2 L nasal cannula to maintain saturations and blood pressures have been stable. Patient has been very somnolent and does moan with any movement. Nursing reported significant unstageable sacral ulcers. Patient is not able to provide much additional history. Patient states that he has not felt well for 2 to 3 weeks and has had multiple falls. Patient does admit to using fentanyl and methamphetamine. Patient is not reporting any other illicit drug use. Patient is not denying IV use. Patient does report sacral pain, but denies any nausea, vomiting or diarrhea. No bleeding complications have been reported by nursing. 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 Chest pain Chronic pain COPD (chronic obstructive pulmonary disease) Hypertension Old myocardial infarction Shortness of breath Tobacco abuse Home Medications NK 04/12/21 [History Last Taken Unknown] Allergy/AdvReac Type Severity Reaction Status Date / Time aspirin Allergy Hives Verified 04/12/21 14:55 Sulfa (Sulfonamide Allergy Hives Verified 04/12/21 14:55 Antibiotics) epinephrine AdvReac Anaphylaxis Verified 04/12/21 14:55 Bee stings Allergy Anaphylaxis Uncoded 04/12/21 14:55 Family History Father CVA (cerebral vascular accident) COPD (chronic obstructive pulmonary disease) Mother CVA (cerebral vascular accident) Surgical History no surgical history Social History household members: other details: room mate Smoking Status: Heavy Smoker (>10/day) second hand exposure: Yes substance use type: heroin and amphetamines ROS Review of Systems ROS Unobtainable: due to mental condition Physical Exam Const Constitutional Narrative: Disheveled. Appears older than stated age. Moaning in bed. General Appearance: ill appearing HEENT normocephalic Head and Scalp: abrasion Abrasion Size: Multiple abrasions throughout the face Mouth: dry mucous membranes Teeth and Gingiva: poor dentition Eyes PERRL and EOMs intact bilaterally Sclera: sclera abnormal Positive for bilateral Details: scleral injection Neck full ROM Neck Narrative: Cervical lymphadenopathy noted Chest Chest: abnormal inspection of the chest increased A-P diameter and symmetrical chest wall rise; Negative for crepitus Resp Effort and Inspection: Negative for actively coughing Auscultation: diminished lung sounds; Negative for rales, rhonchi or wheezes Cardio S1 normal heart sound, S2 normal heart sound, no murmurs, no rub and no gallops Rate: tachycardic Peripheral Pulses: radial pulses present and posterior tibial pulses present GI soft to palpation and non-tender Palpation: Negative for guarding Percussion: Negative for fluid wave Extremity General Extremity: Negative for clubbing, cyanosis or edema Skin Skin Narrative: Significant unstageable wound of the buttocks and sacrum. Multiple abrasions throughout the face and extremities. No obvious purulence appreciated. Neuro Neuro Narrative: No focal neurologic deficits. RASS -1. Not following many commands Psych Appearance: unkempt Mood & Affect: flat affect Lab / Micro Data Result Diagrams: 04/13/21 05:25 04/13/21 05:25 Labs: Laboratory Results - last 24 hr 04/12/21 13:00: WBC 50.0 H*, RBC 3.41 L, Hgb 6.9 L, Hct 23.7 L, MCV 69.5 L, MCH 20.2 L, MCHC 29.1 L, RDW Std Deviation 44.9 H, RDW Coeff of Pilo 18.6 H, Plt Count 560 H, MPV 8.9, Neut % (Auto) Not Reportable, Absolute Neuts (auto) 44.0 H , Absolute Lymphs (auto) 0.00 L, Total Counted 100, Neutrophils % (Manual) 69, Band Neutrophils % 19 H, Monocytes % (Manual) 4, Metamyelocytes % 5 H, Myelocytes % 2 H, Blast Cells % 1 H*, Nucleated RBCs/100 WBC 3, Diff Path Review May foll, Platelet Estimate MOD INC, RBC Morphology N CHROM, Anisocytosis 1+ 04/12/21 13:00: D-Dimer Quant (PE/DVT) 10.97 H* 04/12/21 13:00: Sodium 132 L, Potassium 5.2 H, Chloride 98, Carbon Dioxide 24.0, Anion Gap 10, BUN 46 H, Creatinine 1.31 H, Estim Creat Clear Calc 65.46, Est GFR (MDRD) Af Amer 72, Est GFR (MDRD) Non-Af 60, BUN/Creatinine Ratio 35.1 H, Glucose 144 H, Calcium 8.4 L, Troponin I High Sens 479 H* 04/12/21 13:00: PT 15.9 H, INR 1.3, APTT 32.9 04/12/21 13:00: Ethyl Alcohol < 3.0 04/12/21 13:00: Total Bilirubin 0.60, Direct Bilirubin 0.28, AST 75 H, ALT 60, Alkaline Phosphatase 121 H, Total Protein 8.0, Albumin 1.4 L, Globulin 6.6 H 04/12/21 16:18: Urine Opiates Screen NEGATIVE, Urine Methadone Screen NEGATIVE, Ur Barbiturates Screen NEGATIVE, Ur Phencyclidine Scrn NEGATIVE, Ur Amphetamines Screen POSITIVE H, U Methamphetamin-MDMA POSITIVE H, U Benzodiazepines Scrn NEG ATIVE, Urine Cocaine Screen NEGATIVE, U Cannabinoids Screen NEGATIVE, Ur Drug Screen Comment 04/12/21 16:18: Urine Color Yellow, Urine Clarity Cloudy, Urine pH 6.5, Ur Specific [place] 1.015, Urine Protein 30 H, Urine Glucose (UA) Normal, Urine Ketones Negative, Urine Occult Blood 150 H, Urine Nitrite Negative, Urine Bilirubin Negative, Urine Urobilinogen Normal, Ur Leukocyte Esterase 500 H, Urine RBC 0-5 SEEN, Urine WBC 50-100 SEEN, Ur Squamous Epith Cells 0-5 SEEN, Urine Bacteria 2+, Hyaline Casts 0-5 SEEN, Urine Mucus 0 SEEN 04/12/21 16:27: COVID-19 (VIKAS) Not Detected 04/12/21 17:30: Troponin I High Sens 432 H* 04/12/21 17:30: Lactic Acid 1.8 02/18/22 21:50: Blood Type A POSITIVE, Antibody Screen NEGATIVE, Crossmatch See Detail 04/12/21 21:52: Hgb 5.8 L*, Hct 19.3 L 04/12/21 21:52: Iron 13 L, TIBC 174 L, Iron Saturation 7.5 L 04/12/21 21:52: B-Natriuretic Peptide 176.2 H 04/12/21 21:52: Troponin I High Sens 421 H* 04/12/21 21:52: APTT 52.3 H 04/13/21 05:25: APTT 35.7 04/13/21 05:25: WBC 42.8 H*, RBC 3.10 L, Hgb 7.2 L, Hct 22.8 L, MCV 73.5 L D, MCH 23.2 L, MCHC 31.6 L D, RDW Std Deviation 56.2 H, RDW Coeff of Pilo 21.8 H, Plt Count 432, MPV 8.8, Neut % (Auto) Not Reportable, Absolute Neuts (auto) 40.3 H, Absolute Lymphs (auto) 2.14, Total Counted 100, Neutrophils % (Manual) 79 H, Band Neutrophils % 15 H, Lymphocytes % (Manual) 5 L, Monocytes % (Manual) 0, Myelocytes % 1 H, Nucleated RBCs/100 WBC 3, Diff Path Review June, Platelet Estimate ADEQUATE, Hypochromasia 2+, Anisocytosis 1+, Microcytosis 1+ 04/13/21 05:25: Sodium 134 L, Potassium 4.4, Chloride 102, Carbon Dioxide 28.0, Anion Gap 4 L, BUN 39 H, Creatinine 1.00, Estim Creat Clear Calc 85.76, Est GFR (MDRD) Af Amer 99, Est GFR (MDRD) Non-Af 81, BUN/Creatinine Ratio 39.0 H, Glucose 95, Calcium 7.5 L, Total Bilirubin 0.70, AST 55 H, ALT 49, Alkaline Phosphatase 96, Total Protein 6.9, Albumin 1.2 L, Globulin 5.7 H, Albumin/Globulin Ratio 0.2 L Micro: Microbiology 04/12/21 17:30 Blood Culture (Wb) - Anticubital Left Blood Culture - P reliminary 04/12/21 15:00 Blood Culture (Wb) - Right Hand Blood Culture - Preliminary 04/12/21 20:05 Stool Stool Occult Blood (JOSÉ MANUEL) - Final Occult Blood Positive Radiology Impression Chest X-Ray 04/12/21 15:54 IMPRESSION: Mild right basilar infiltrate. Electronically Signed: Reinier Hillman DO at 16:10 EST , Chest CTA 04/12/21 16:59 IMPRESSION: 1. There is pulmonary embolism of the right upper lobe branch, right middle lobe branch, right lower lobe branch, left lower lobe branch, lingular branch, and left upper lobe branch. There is no saddle embolus. No heart strain. 2. There is bilateral pneumonia. Right pleural effusion. cf called. Electronically Signed: Ramesh Madrid MD at 18:46 EST , ADDENDUM: 04/12/21 1853 IMPRESSION: 1. There is pulmonary embolism of the right upper lobe branch, right middle lobe branch, right lower lobe branch, left lower lobe branch, lingular branch, and left upper lobe branch. There is no saddle embolus. No heart strain. 2. There is bilateral pneumonia. Right pleural effusion. cf called. N.B. : The above Results were Read Back by Ramesh Madrid MD to Pedro Pablo Dickson DO, and understanding confirmed on 04/12/2021 18:46:54 (ET). Electronically Signed: Ramesh Madrid MD at 18:46 EST , Venous Duplex 04/12/21 18:54 IMPRESSION: Deep venous thrombosis of the right peroneal and gastrocnemius veins. Deep venous thrombosis of the left superficial femoral and popliteal as well as infrapopliteal veins. Right superficial venous thrombosis. Electronically Signed: Reinier Hillman DO at 20:38 EST , Charges/Coding Visit Charges Inpatient E&M: 39806 Init Hosp L3
[2021-04-13] MEDS: Ipratropium/Albuterol Sulfate 3 ML AMPUL.NEB INHALATION ×3 (07:17→15:14)
[2021-04-13 08:52] LABS: Partial Thromboplast Time 39.8 Seconds (24.1-36.2)
--- NOTE | 2021-04-13 10:18 | PCM.PN.HOSP ---
Subjective Subjective Keeps asking for water. Endorses that he uses about an eighth of gram of heroin/day. Objective Data Objective Data Vital Signs: Vital Signs Temp Pulse Resp BP Pulse Ox 36.2 C L 105 H 18 117/85 H 96 04/13/21 03:12 04/13/21 08:00 04/13/21 08:00 04/13/21 08:00 04/13/21 08:00 Oxygen Flow Rate (L/min) 2 Oxygen Delivery Method Nasal Cannula Weight: 87.2 kg Body Mass Index (BMI) 26.5 Intake & Output: Intake and Output for Last 24 Hours 04/11/21 04/12/21 04/13/21 23:59 23:59 23:59 Intake Total 2435 / 2447 1746 / 1746 Output Total 1450 / 1450 Balance 2435 / 1497 296 / 296 Lab / Micro Data Result Diagrams: 04/13/21 05:25 04/13/21 05:25 Labs: Laboratory Results - last 24 hr 04/12/21 13:00: WBC 50.0 H*, RBC 3.41 L, Hgb 6.9 L, Hct 23.7 L, MCV 69.5 L, MCH 20.2 L, MCHC 29.1 L, RDW Std Deviation 44.9 H, RDW Coeff of Pilo 18.6 H, Plt Count 560 H, MPV 8.9, Neut % (Auto) Not Reportable, Absolute Neuts (auto) 44.0 H, Absolute Lymphs (auto) 0.00 L, Total Counted 100, Neutrophils % (Manual) 69, Band Neutrophils % 19 H, Monocytes % (Manual) 4, Metamyelocytes % 5 H, Myelocytes % 2 H, Blast Cells % 1 H*, Nucleated RBCs/100 WBC 3, Diff Path Review May jackie, Platelet Estimate MOD INC, RBC Morphology N CHROM, Anisocytosis 1+ 04/12/21 13:00: D-Dimer Quant (PE/DVT) 10.97 H* 04/12/21 13:00: Sodium 132 L, Potassium 5.2 H, Chloride 98, Carbon Dioxide 24.0, Anion Gap 10, BUN 46 H, Creatinine 1.31 H, Estim Creat Clear Calc 65.46, Est GFR (MDRD) Af Amer 72, Est GFR (MDRD) Non-Af 60, BUN/Creatinine Ratio 35.1 H, Glucose 144 H, Calcium 8.4 L, Troponin I High Sens 479 H* 04/12/21 13:00: PT 15.9 H, INR 1.3, APTT 32.9 04/12/21 13:00: Ethyl Alcohol < 3.0 04/12/21 13:00: Total Bilirubin 0.60, Direct Bilirubin 0.28, AST 75 H, ALT 60, Alkaline Phosphatase 121 H, Total Protein 8.0, Albumin 1.4 L, Globulin 6.6 H 04/12/21 16:18: Urine Opiates Screen NEGATIVE, Urine Methadone Screen NEGATIVE, Ur Barbiturates Screen NEGATIVE, Ur Phencyclidine Scrn NEGATIVE, Ur Amphetamines Screen POSITIVE H, U Methamphetamin-MDMA POSITIVE H, U Benzodiazepines Scrn NEGATIVE, Urine Cocaine Screen NEGATIVE, U Cannabinoids Screen NEGATIVE, Ur Drug Screen Comment 04/12/21 16:18: Urine Color Yellow, Urine Clarity Cloudy, Urine pH 6.5, Ur Specific [place] 1.015, Urine Protein 30 H, Urine Glucose (UA) Normal, Urine Ketones Negative, Urine Occult Blood 150 H, Urine Nitrite Negative, Urine Bilirubin Negative, Urine Urobilinogen Normal, Ur Leukocyte Esterase 500 H, Urine RBC 0-5 SEEN, Urine WBC 50-100 SEEN, Ur Squamous Epith Cells 0-5 SEEN, Urine Bacteria 2+, Hyaline Casts 0-5 SEEN, Urine Mucus 0 SEEN 04/12/21 16:27: COVID-19 (VIKAS) Not Detected 04/12/21 17:30: Troponin I High Sens 432 H* 04/12/21 17:30: Lactic Acid 1.8 04/12/21 21:50: Blood Type A POSITIVE, Antibody Screen NEGATIVE, Crossmatch See Detail 04/12/21 21:52: Hgb 5.8 L*, Hct 19.3 L 04/12/21 21:52: Iron 13 L, TIBC 174 L, Iron Saturation 7.5 L 04/12/21 21:52: B-Natriuretic Peptide 176.2 H 04/12/21 21:52: Troponin I High Sens 421 H* 04/12/21 21:52: APTT 52.3 H 04/13/21 05:25: APTT 35.7 04/13/21 05:25: WBC 42.8 H*, RBC 3.10 L, Hgb 7.2 L, Hct 22.8 L, MCV 73.5 L D, MCH 23.2 L, MCHC 31.6 L D, RDW Std Deviation 56.2 H, RDW Coeff of Pilo 21.8 H, Plt Count 432, MPV 8.8, Neut % (Auto) Not Reportable, Absolute Neuts (auto) 40.3 H, Absolute Lymphs (auto) 2.14, Total Counted 100, Neutrophils % (Manual) 79 H, Band Neutrophils % 15 H, Lymphocytes % (Manual) 5 L, Monocytes % (Manual) 0, Myelocytes % 1 H, Nucleated RBCs/100 WBC 3, Diff Path Review June, Platelet Estimate ADEQUATE, Hypochromasia 2+, Anisocytosis 1+, Microcytosis 1+ 04/13/21 05:25: Sodium 134 L, Potassium 4.4, Chloride 102, Carbon Dioxide 28.0, Anion Gap 4 L, BUN 39 H, Creatinine 1.00, Estim Creat Clear Calc 85.76, Est GFR (MDRD) Af Amer 99, Est GFR (MDRD) Non-Af 81, BUN/Creatinine Ratio 39.0 H, Glucose 95, Calcium 7.5 L, Total Bilirubin 0.70, AST 55 H, ALT 49, Alkaline Phosphatase 96, Total Protein 6.9, Albumin 1.2 L, Globulin 5.7 H, Albumin/Globulin Ratio 0.2 L 04/13/21 07:55: APTT 39.8 H Micro: Microbiology 04/12/21 15:00 Blood Culture (Wb) - Right Hand Bacteria Detection (PCR) - Final Staphylococcus aureus 04/12/21 15:00 Blood Culture (Wb) - Right Hand Blood Culture - Preliminary Staphylococcus aureus 04/12/21 17:30 Blood Culture (Wb) - Anticubital Left Blood Culture - Preliminary 04/12/21 20:05 Stool Stool Occult Blood (JOSÉ MANUEL) - Final Occult Blood Positive Radiography Diagnostic Testing: Radiology Impression Chest X-Ray 04/12/21 15:54 IMPRESSION: Mild right basilar infiltrate. Electronically Signed: Reinier Hillman DO at 16:10 EST Reading Location ID and State: [facility] / [place] Tel [phone], Service support , Chest CTA 04/12/21 16:59 IMPRESSION: 1. There is pulmonary embolism of the right upper lobe branch, right middle lobe branch, right lower lobe branch, left lower lobe branch, lingular branch, and left upper lobe branch. There is no saddle embolus. No heart strain. 2. There is bilateral pneumonia. Right pleural effusion. cf called. Electronically Signed: Ramesh Madrid MD at 18:46 EST , ADDENDUM: 04/12/21 1853 IMPRESSION: 1. There is pulmonary embolism of the right upper lobe branch, right middle lobe branch, right lower lobe branch, left lower lobe branch, lingular branch, and left upper lobe branch. There is no saddle embolus. No heart strain. 2. There is bilateral pneumonia. Right pleural effusion. cf called. N.B. : The above Results were Read Back by Ramesh Madrid MD to Pedro Pablo Dickson DO, and understanding confirmed on 04/12/2021 18:46:54 (ET). Electronically Signed: Ramesh Madrid MD at 18:46 EST , Venous Duplex 04/12/21 18:54 IMPRESSION: Deep venous thrombosis of the right peroneal and gastrocnemius veins. Deep venous thrombosis of the left superficial femoral and popliteal as well as infrapopliteal veins. Right superficial venous thrombosis. Electronically Signed: Reinier Hillman DO at 20:38 EST , Physical Exam Const alert Constitutional Narrative: disheveled. afebrile HEENT HEENT Narrative: scabs on forehead and side of face. Neck no lymphadenopathy Resp normal respiratory effort, no retractions, no use of accessory muscles and clear to auscultation bilaterally Cardio regular rate, regular rhythm, S1 normal heart sound and S2 normal heart sound GI normal to inspection, nondistended, normoactive bowel sounds, soft to palpation, non-tender and non-distended Extremity Extremity Narrative: cyanosis on toes. edema. Skin Skin Narrative: numerous excoriations and superficial wounds. Assessment & Plan Assessment/Plan (1) Acute deep vein thrombosis (DVT): QUALIFIERS: Affected thrombotic vein of extremity: other lower extremity vein DVT location: lower extremity Laterality: bilateral Qualified Code(s): I82.493 - Acute embolism and thrombosis of other specified deep vein of lower extremity, bilateral (2) Sepsis: QUALIFIERS: Acute renal failure type: unspecified Sepsis acute organ dysfunction status: with acute organ dysfunction Sepsis type: sepsis due to unspecified organism Severe sepsis acute organ dysfunction type: acute renal failure Severe sepsis shock status: without septic shock Qualified Code(s): A41.9 - Sepsis, unspecified organism; R65.20 - Severe sepsis without septic shock; N17.9 - Acute kidney failure, unspecified (3) LAVELL (acute kidney injury): (4) Acute pulmonary embolism: QUALIFIERS: Acute cor pulmonale presence: without acute cor pulmonale Pulmonary embolism type: other Qualified Code(s): I26.99 - Other pulmonary embolism without acute cor pulmonale (5) Bacteremia: (6) Pneumonia: (7) Pulmonary embolism: PLAN: 1. sepsis POA Secondary to bacteremia and pneumonia on vanc and pip/tazo follow up cx 2. S. aureus bacteremia Of unknown primary this time Repeat blood cultures Concern for endocarditis Follow-up echocardiogram 3. Pulmonary embolism v. septic emboli continue heparin gtt 4. Pneumonia unclear type follow up cx 5. LAVELL resolved 6. Sacral decubitus ulcers PRS and wound care 7. Polysubstance abuse complicates care consider buprenorphine taper if active withdrawal 8. VTE prophylaxis: not indicated Charges/Coding Visit Charges Inpatient E&M: 34946 [facility] Hosp L3
--- NOTE | 2021-04-13 13:42 | CASEMGMT ---
Tertiary facilities in-network with patient's insurance include: [facility], [facility], [facility], [facility], [facility], [facility], , [facility], [place], and [place]. GARRICK BOTELLO attempted to complete assessment with patient at this time. Patient is confused and unable to participate in assessment.
[2021-04-13] MEDS: Juven (unflavored) Packet 1 PACKET PO (13:57)
[2021-04-13 17:02] LABS: Partial Thromboplast Time 47.6 Seconds (24.1-36.2)
--- NOTE | 2021-04-13 21:39 | CON.PCM.GI_ITS ---
HPI Consult Data Date of Consult: 04/13/21 HPI Narrative HPI Narrative: ROMEO DOVER, is a 60-year-old male with past medical history of CAD status post PA, hypertension, COPD/asthma overlap syndrome, chronic smoker, chronic back pain who comes in with complaints of generalized weakness, inability to walk, recurrent falls, chest pain ongoing for 3 weeks. He admits to chest pain and progressive shortness of breath. He denied any fever or chills or diarrhea. He admits to some nausea. He denies any melena stools or hematochezia. He admits to occasional cough, productive of dark brown sputum. Patient admits to using illicit drugs - methamphetamines and heroin. He also smokes about 3 packs a day. Admitting chest x-ray shows mild right basilar infiltrate. CTA of the chest shows extensive PE, no saddle embolus or heart strain. Bilateral pneumonia, right pleural effusion. Doppler ultrasound of the lower extremity shows right peroneal gastrocnemius vein DVT, DVT of the left superficial femoral and popliteal as well as from popliteal veins. Right superficial venous thrombosis. WBC count of 50,000,19% bandemia, hemoglobin 6.9, platelet count 560, D-dimer was 10.9, sodium 132, potassium 5.2, chloride 98, bicarbonate 24, BUN 46, creatinine 1.31, lactic acid 1.8, troponin 432, albumin 1.4 Patient received blood transfusion and is on antibiotic therapy in the medicine by supervisor [place] and hospitalist service. I was consulted because of his severe anemia with reactive thrombocytosis on outpatient with anticoagulation. He does admit to occasional dark stools. He did not know that he was anemic prior to coming into the hospital. He has never had a colonoscopy. [facility] Medical History (Updated 04/13/21 @ 21:[address] Veras Friend, DO) Atherosclerotic heart disease of [place] coronary artery with other forms of angina pectoris Chest pain Chronic pain COPD (chronic obstructive pulmonary disease) Hypertension Old myocardial infarction Shortness of breath Tobacco abuse Home Medications NK 04/12/21 [History Last Taken Unknown] Allergy/AdvReac Type Severity Reaction Status Date / Time aspirin Allergy Hives Verified 04/12/21 14:55 Sulfa (Sulfonamide Allergy Hives Verified 04/12/21 14:55 Antibiotics) epinephrine AdvReac Anaphylaxis Verified 04/12/21 14:55 Bee stings Allergy Anaphylaxis Uncoded 04/12/21 14:55 Family History Father CVA (cerebral vascular accident) COPD (chronic obstructive pulmonary disease) Mother CVA (cerebral vascular accident) Surgical History no surgical history Social History household members: other details: room mate Smoking Status: Heavy Smoker (>10/day) second hand exposure: Yes substance use type: heroin and amphetamines ROS Review of Systems ROS Unobtainable: other Constitutional Constitutional: Denies fatigue, fever(s), poor appetite, weight gain or weight loss ENT HEENT: Denies mouth lesions Cardiovascular Cardiovascular: Denies abdominal bloating, abdominal edema or abdominal pain Respiratory/Chest Respiratory/Chest: Denies change in mental status, change in phlegm color, chest congestion or chest tightness Gastrointestinal Gastrointestinal: Denies belching, bloating, change in bowel habits, change in stool character, chewing difficulty, coffee ground emesis, constipation, cramping, diarrhea, dyspepsia, dysphagia, early satiety, excessive flatus, fecal incontinence, heartburn, hematemesis, hematochezia, hemorrhoids, loose stools, melena, nausea, odynophagia, rectal bleeding, tenesmus, vomiting or weight changes Genitourinary Genitourinary: Denies abdominal discomfort, burning urination or itching Musculoskeletal Musculoskeletal: Reports as per HPI; Denies muscle weakness or myalgias Integumentary Integumentary: Denies jaundice Neurologic Neurologic: Denies lack of coordination or weakness Psychiatric Psychiatric: Denies confusion, depression, memory loss, mood swings, paranoia or suicidal ideation Endocrine Endocrinology: Denies systems reviewed and no addt'l complaints, except as documented Hematologic/Lymphatic Hematologic/Lymphatic: Denies anemia, easy bleeding, easy bruising or lymphadenopathy Allergic/Immunologic Allergic/Immunologic: Denies systems reviewed and no addt'l complaints, except as documented Physical Exam Const alert General Appearance: cooperative Orientation / Consciousness: oriented to person HEENT hearing grossly normal bilaterally Head and Scalp: normal to inspection Face and Sinus: face symmetric Nose: external nose normal Mouth: oral and palatal mucosa normal Eyes conjunctivae normal General Eye: normal appearance of both eyes Neck full ROM General: normal visual inspection Lymph Lymphatic: no lymphadenopathy noted Chest inspection of chest normal and palpation of chest normal Chest: symmetrical chest wall rise Resp normal respiratory effort Effort and Inspection: able to speak in complete sentences Cardio regular rate GI non-distended Percussion: normal to percussion Rectal Exam: deferred Neuro Speech: speech normal Gait (Neuro): normal gait Medical Records Data Medical Nutrition Assessment Dietitian: Malnutrition Criteria Met Start: 04/13/21 12:55 Freq: Status: Active Protocol: Document 04/13/21 12:55 RMA (Rec: 04/13/21 12:55 RMA [id number]) Nutrition Malnutrition Evidence of Malnutrition Exists Yes Malnutrition (severe): Chronic Evidenced By Suboptimal Energy Intake ( Severe),Weight Loss (Severe) Clinical Problem Chronic Disease or Condition Related Malnutrition Etiology Severe protein-calorie malnutrition in the context of chronic disease/injury and social circumstance related to increased energy expenditure/ inadequate oral intake, pressure injury and drug abuse Signs/Symptoms as evidenced by ~10% wt loss x 1 month and PO meeting less than 50% estimated nutrition needs for protein and calories Status Active Problem Recommendation Dietitian Recommendations/Changes Recommend advance PO as tolerated to Regular diet. Will add 240ml ensure clear TID w/ meals. Will add Darryl BID w/ medpass for wound healing. Adjust ONS as diet advanced from clear liquids. May need to consider enteral nutrition support if PO established inadequate at meals and weight continues to decline. Lab / Micro Data Result Diagrams: 04/13/21 05:25 04/13/21 05:25 Labs: Laboratory Results - last 24 hr 04/12/21 21:50: Blood Type A POSITIVE, Antibody Screen NEGATIVE, Crossmatch See Detail 04/12/21 21:52: Hgb 5.8 L*, Hct 19.3 L 04/12/21 21:52: Iron 13 L, TIBC 174 L, Iron Saturation 7.5 L 04/12/21 21:52: B-Natriuretic Peptide 176.2 H 04/12/21 21:52: Troponin I High Sens 421 H* 04/12/21 21:52: APTT 52.3 H 04/13/21 05:25: APTT 35.7 04/13/21 05:25: WBC 42.8 H*, RBC 3.10 L, Hgb 7.2 L, Hct 22.8 L, MCV 73.5 L D, MCH 23.2 L, MCHC 31.6 L D, RDW Std Deviation 56.2 H, RDW Coeff of Pilo 21.8 H, Plt Count 432, MPV 8.8, Neut % (Auto) Not Reportable, Absolute Neuts (auto) 40.3 H, Absolute Lymphs (auto) 2.14, Total Counted 100, Neutrophils % (Manual) 79 H, Band Neutrophils % 15 H, Lymphocytes % (Manual) 5 L, Monocytes % (Manual) 0, Myelocytes % 1 H, Nucleated RBCs/100 WBC 3, Diff Path Review June, Platelet Estimate ADEQUATE, Hypochromasia 2+, Anisocytosis 1+, Microcytosis 1+ 04/13/21 05:25: Sodium 134 L, Potassium 4.4, Chloride 102, Carbon Dioxide 28.0, Anion Gap 4 L, BUN 39 H, Creatinine 1.00, Estim Creat Clear Calc 85.76, Est GFR (MDRD) Af Amer 99, Est GFR (MDRD) Non-Af 81, BUN/Creatinine Ratio 39.0 H, Glucose 95, Calcium 7.5 L, Total Bilirubin 0.70, AST 55 H, ALT 49, Alkaline Phosphatase 96, Total Protein 6.9, Albumin 1.2 L, Globulin 5.7 H, Albumin/Globulin Ratio 0.2 L 04/13/21 07:55: APTT 39.8 H 04/13/21 16:37: APTT 47.6 H Micro: Microbiology 04/12/21 16:18 Urine Catheter - Catheter Urine Culture - Preliminary Staphylococcus aureus 04/12/21 15:00 Blood Culture (Wb) - Right Hand Bacteria Detection (PCR) - Final Staphylococcus aureus 04/12/21 15:00 Blood Culture (Wb) - Right Hand Blood Culture - Preliminary Staphylococcus aureus 04/12/21 17:30 Blood Culture (Wb) - Anticubital Left Blood Culture - Preliminary 04/12/21 20:05 Stool Stool Occult Blood (JOSÉ MANUEL) - Final Occult Blood Positive Radiology Impression Echocardiogram 04/12/21 20:54 Interpretation Summary The estimated ejection fraction is 65 %. No evidence for diastolic dysfunction. Ordering Physician: Cristel Chu Referring Physician: EKATERINA PCP Performed By: Anika Sales RDCS, RVT Assessment & Plan Assessment/Plan (1) Pulmonary embolism: PLAN: Patient is currently on heparin. His blood count has been monitored. He has not shown any signs of active bleeding at this time. He receive blood transfusion. (2) Anemia: PLAN: He will need to undergo an upper and lower endoscopy to evaluate his upper lower GI tract. The differential diagnosis for him would be severe stress gastritis, peptic ulcer disease, neoplasia. I will continue to follow. Charges/Coding Visit Charges Inpatient E&M: 83809 Init Hosp L3
[2021-04-13 23:42] LABS: Partial Thromboplast Time 55.4 Seconds (24.1-36.2)
[2021-04-14] VITALS (31 sets, daily range): BP systolic 102–142; BP diastolic 61–96; PULSE 88–108; RESP 17–30; TEMP 36.3–37.1; O2SAT 90–98
[2021-04-14] MEDS: Acetaminophen 325 MG Tablet 650 MG PO ×3 (04:25→17:59)
[2021-04-14 05:52] LABS: Hematocrit 19.1 % (40-54); Hemoglobin 6.1 g/dL (13.0-16.5); Mean Corp Hgb Conc 31.9 g/dL (32-36); Mean Corpuscular Hgb 23.3 pg (27.0-32.0); Mean Corpuscular Volume 72.9 fL (80-94); POSITIVE COUNT YES; POSITIVE DIFFERENTIAL YES; POSITIVE MORPHOLOGY YES; Platelet Count 409 K/mm3 (150-450); RBC Distribution Width CV 21.8 % (11.6-14.6); RBC Distribution Width SD 55.9 fl (35.1-43.9); Red Blood Count 2.62 M/mm3 (4.6-6.2)
[2021-04-14 05:53] LABS: Differential Indicated MANUAL DIFF
[2021-04-14 05:54] LABS: White Blood Count 38.8 K/mm3 (4.4-11.0)
[2021-04-14 06:31] LABS: Partial Thromboplast Time 50.1 Seconds (24.1-36.2)
[2021-04-14 06:34] LABS: Neutrophil-Band 5 % (0-5); Neutrophil-Segmented 85 % (47-70); Total Cells Counted 100 (MANUAL DIFF)
[2021-04-14 06:35] LABS: Anion Gap 6 (5-15); BUN 29 mg/dL (7-18); BUN/Creat Ratio 33.3 RATIO (10-20); Calcium,Total 7.4 mg/dL (8.5-10.1); Chloride 98 mmol/L (98-107); Creatinine, Serum 0.87 mg/dL (0.70-1.30); EST Glomerular Filtration Rate 96 mL/min (>60); Est Glom Filt Rate - Afr Amer 116 mL/min (>60); Estimated Creatinine Clearance 98.57 ml/min; Glucose 106 mg/dL (74-106); Lymphocyte 4 % (19-41); Magnesium 2.2 mg/dL (1.6-2.6); Metamyelocyte 3 % (0-1); Monocyte 3 % (0-10); Nucleated Red Bld Cells,Manual 2 % (0-5); Potassium 4.2 mmol/L (3.5-5.1); Sodium Level 131 mmol/L (136-145); Vancomycin, Trough Level 18.3 ug/mL (5.0-15.0)
[2021-04-14 06:36] LABS: Absolute Lymphocyte Count 1.55 X10^3/uL (0.83-4.51); Absolute Neutrophil Count 36.1 X10^3/uL (2.0-7.7); Differential Comment SCANNED; Lymphocyte # 1.55 X10^3/ul (0.83-4.51); Neutrophil # 36.11 X10^3/uL (2.7-7.7)
[2021-04-14 06:37] LABS: Platelet Estimate ADEQUATE (ADEQ)
[2021-04-14] MEDS: Heparin Injection (Vial) 5,000 UNIT/ML VIAL IV (06:37)
[2021-04-14 06:38] LABS: Anisocytosis 2+; Polychromasia 1+
[2021-04-14 06:39] LABS: Macrocytosis 1+; Microcytosis 1+
[2021-04-14 06:40] LABS: Schistocytes RARE
--- NOTE | 2021-04-14 06:44 | PCM.RX.CS ---
Consult Pharmacy has been consulted to manage selected antiobiotic: Vancomycin Type of Consult: Follow-up Suspected Infection: Sepsis Prior Doses of Antibiotics Received/Current Regimen: Medications Vancomycin HCl (Vancomycin) 1,000 mg in 200 mls @ 200 mls/hr IV Q12H JOHN Last Admin: 04/13/21 21:03 Dose: Infused Labs: Sodium 131 mmol/L (136-145) L 04/14/21 05:35 Potassium 4.2 mmol/L (3.5-5.1) 04/14/21 05:35 Chloride 98 mmol/L (98-107) 04/14/21 05:35 Carbon Dioxide 27.0 mmol/L (21.0-32.0) 04/14/21 05:35 Anion Gap 6 (5-15) 04/14/21 05:35 BUN 29 mg/dL (7-18) H 04/14/21 05:35 Creatinine 0.87 mg/dL (0.70-1.30) 04/14/21 05:35 Est GFR (MDRD) Af Amer 116 mL/min (>60) 04/14/21 05:35 Est GFR (MDRD) Non-Af 96 mL/min (>60) 04/14/21 05:35 BUN/Creatinine Ratio 33.3 RATIO (10-20) H 04/14/21 05:35 Glucose 106 mg/dL (74-106) 04/14/21 05:35 Vancomycin Trough 18.3 ug/mL (5.0-15.0) H 04/14/21 05:35 Microbiology: Microbiology 04/13/21 14:00 Blood Culture (Wb) - Right Wrist Blood Culture - Preliminary 04/12/21 16:18 Urine Catheter - Catheter Urine Culture - Preliminary Staphylococcus aureus 04/12/21 15:00 Blood Culture (Wb) - Right Hand Bacteria Detection (PCR) - Final Staphylococcus aureus 04/12/21 15:00 Blood Culture (Wb) - Right Hand Blood Culture - Preliminary Staphylococcus aureus 04/12/21 17:30 Blood Culture (Wb) - Anticubital Left Blood Culture - Preliminary 04/12/21 20:05 Stool Stool Occult Blood (JOSÉ MANUEL) - Final Occult Blood Positive Weight used for dosin kg Estimated Creatinine Clearance: 119 Goal Trough: 15-20 mcg/mL Pharmacy Plan for Drug Dosing: Vancomycin trough level was 18.3. It was drawn just 9.5hrs post dose, but was still within target range of 15-20. SCr decreased also, so the same dose of 1000mg q12h will be continued. Another trough level will be drawn in four doses. Pharmacy Service will continue to monitor and adjust dosing as required. Follow-Up Labs: Trough Vancomycin Labs to be done on [date and time ordered]: 04/16/21 @3992
[2021-04-14 06:48] LABS: Phosphorus 2.5 mg/dL (2.5-4.9)
--- NOTE | 2021-04-14 06:49 | PN.CC_ITS ---
Assessment & Plan Assessment/Plan (1) Sepsis: QUALIFIERS: Sepsis type: sepsis due to unspecified organism Sepsis acute organ dysfunction status: with acute organ dysfunction Severe sepsis acute organ dysfunction type: acute renal failure Acute renal failure type: unspecified Severe sepsis shock status: without septic shock Qualified Code(s): A41.9 - Sepsis, unspecified organism; R65.20 - Severe sepsis without septic shock; N17.9 - Acute kidney failure, unspecified (2) LAVELL (acute kidney injury): (3) Decubitus ulcers: QUALIFIERS: Pressure injury location: sacral region Pressure injury stage: unstageable Qualified Code(s): L89.150 - Pressure ulcer of sacral region, unstageable (4) Acute pulmonary embolism: QUALIFIERS: Pulmonary embolism type: other Acute cor pulmonale presence: without acute cor pulmonale Qualified Code(s): I26.99 - Other pulmonary embolism without acute cor pulmonale (5) Acute deep vein thrombosis (DVT): QUALIFIERS: DVT location: lower extremity Affected thrombotic vein of extremity: other lower extremity vein Laterality: bilateral Qualified Code(s): I82.493 - Acute embolism and thrombosis of other specified deep vein of lower extremity, bilateral PLAN: RECOMMENDATIONS: 1. Continue empiric antibiotics pending cultures. Possibly narrow if found to have MSSA 2. Transfused 2 units of packed red blood cells 3. Continue heparin drip, possible IVC filter 4. Monitor H&H closely 5. Await plastics evaluation of sacral ulcer 6. Continue aggressive fluid resuscitation 7. Monitor for signs and symptoms of refeeding syndrome and withdraw 8. Bronchodilators for probable COPD 9. Likely okay to leave the intensive care unit from my perspective IMPRESSIONS: 1. Severe sepsis from multiple sites secondary to staph aureus Patient with multiple possible sites including bilateral infiltrates, decubitus ulcers and UTI. Patient growing staph aureus in less than 12 hours in all blood culture bottles, but MSSA versus MRSA is not yet known. Patient does have DVTs, but cannot exclude embolism from bacteremia as a secondary cause of pneumonia. Surprisingly, endocarditis was not noted on echocardiogram. Patient is appropriately on vancomycin and Zosyn for now. Continue with aggressive fluid resuscitation. No need for pressors at this time. Patient is on a heparin drip, but appears to be tolerating this intervention. 2. Acute hypoxic respiratory insufficiency secondary to bilateral PE with pneumonia Patient does have a smoking history. Some concern for concomitant COPD. Patient was guaiac positive with anemia on presentation. We will continue with heparin drip as this can be continued if patient develops bleeding complications. Patient does not appear to be fluid overloaded at this time, so we will continue IV fluids. Clinical suspicion for elevated troponin secondary to renal dysfunction and supply demand mismatch. 3. Anemia Likely multifactorial. Patient was occult stool positive. Patient likely also has an element of iron deficiency secondary to malnutrition. Patient responded to blood transfusions. We will continue on heparin drip. Await iron studies. May need IVC filter if patient starts to have bleeding complications. Could consider an iron infusion, but defer to hospitalist 4. Acute kidney injury Previous creatinine less than 1. Patient admitted with a creatinine of 1.31. Patient has received significant fluid resuscitation with improvement in creatinine. Clinical suspicion for prerenal etiology secondary to problem #1 and dehydration. No indication for renal replacement therapy at this time. 5. Unstageable decubitus sacral ulcer/left buttock High clinical suspicion patient will require debridement. Plastic surgery has been consulted. Cannot exclude an element of osteomyelitis leading to problem #1. Await wound and plastic evaluation. 6. Polysubstance abuse/recurrent falls/debility Complicates care, management, recovery and prognosis. Patient is a full code at this time. Clinical suspicion for an element of depression leading to polysubstance abuse. Social work and case management will be made aware for outpatient planning. Subjective Subjective Patient did okay from a hemodynamic standpoint overnight. Patient still reports generalized aching and pain. No shortness of breath has been noted. Patient did have an echocardiogram with no vegetations. No obvious GI bleeding noted from nursing, but hemoglobin was found to be lower this morning. Objective Data Objective Data Vital Signs: Vital Signs Temp Pulse Resp BP Pulse Ox 36.9 C 93 24 H 111/70 95 04/14/21 04:00 04/14/21 06:00 04/14/21 06:00 04/14/21 06:00 04/14/21 06:00 Oxygen Flow Rate (L/min) 2 Oxygen Delivery Method Room Air Weight: 91 kg Body Mass Index (BMI) 26.5 Intake & Output: Intake and Output for Last 24 Hours 04/12/21 04/13/21 04/14/21 23:59 23:59 23:59 Intake Total 2435 / 2447 4028.88 / 4028.88 154.32 / 154.32 Output Total 2650 / 2650 750 / 750 Balance 2435 / 1497 1378.88 / 1378.88 -595.68 / -595.68 Medical Nutrition Assessment Dietitian: Malnutrition Criteria Met Start: 04/13/21 12:55 Freq: Status: Active Protocol: Document 04/13/21 12:55 RMA (Rec: 04/13/21 12:55 RMA [id number]) Nutrition Malnutrition Evidence of Malnutrition Exists Yes Malnutrition (severe): Chronic Evidenced By Suboptimal Energy Intake ( Severe),Weight Loss (Severe) Clinical Problem Chronic Disease or Condition Related Malnutrition Etiology Severe protein-calorie malnutrition in the context of chronic disease/injury and social circumstance related to increased energy expenditure/ inadequate oral intake, pressure injury and drug abuse Signs/Symptoms as evidenced by ~10% wt loss x 1 month and PO meeting less than 50% estimated nutrition needs for protein and calories Status Active Problem Recommendation Dietitian Recommendations/Changes Recommend advance PO as tolerated to Regular diet. Will add 240ml ensure clear TID w/ meals. Will add Darryl BID w/ medpass for wound healing. Adjust ONS as diet advanced from clear liquids. May need to consider enteral nutrition support if PO established inadequate at meals and weight continues to decline. Lab / Micro Data Result Diagrams: 04/14/21 05:35 04/14/21 05:35 Labs: Laboratory Results - last 24 hr 04/13/21 07:55: APTT 39.8 H 04/13/21 16:37: APTT 47.6 H 04/13/21 23:20: APTT 55.4 H 04/14/21 05:35: Vancomycin Trough 18.3 H 04/14/21 05:35: APTT 50.1 H 04/14/21 05:35: WBC 38.8 H*, RBC 2.62 L, Hgb 6.1 L, Hct 19.1 L, MCV 72.9 L, MCH 23.3 L, MCHC 31.9 L, RDW Std Deviation 55.9 H, RDW Coeff of Pilo 21.8 H, Plt Count 409, MPV 9.0, Neut % (Auto) Not Reportable, Absolute Neuts (auto) 36.1 H, Absolute Lymphs (auto) 1.55, Total Counted 100, Neutrophils % (Manual) 85 H, Band Neutrophils % 5, Lymphocytes % (Manual) 4 L, Monocytes % (Manual) 3, Metamyelocytes % 3 H, Nucleated RBCs/100 WBC 2, Differential Comment SCANNED, Diff Path Review May , Platelet Estimate ADEQUATE, Polychromasia 1+, Anisocytosis 2+, Microcytosis 1+, Macrocytosis 1+, Schistocytes RARE 04/14/21 05:35: Sodium 131 L, Potassium 4.2, Chloride 98, Carbon Dioxide 27.0, Anion Gap 6, BUN 29 H, Creatinine 0.87, Estim Creat Clear Calc 98.57, Est GFR (MDRD) Af Amer 116, Est GFR (MDRD) Non-Af 96, BUN/Creatinine Ratio 33.3 H, Glucose 106, Calcium 7.4 L, Magnesium 2.2 04/14/21 05:35: Phosphorus 2.5 Micro: Microbiology 04/13/21 14:00 Blood Culture (Wb) - Right Wrist Blood Culture - Preliminary 04/12/21 16:18 Urine Catheter - Catheter Urine Culture - Preliminary Staphylococcus aureus 04/12/21 15:00 Blood Culture (Wb) - Right Hand Bacteria Detection (PCR) - Final Staphylococcus aureus 04/12/21 15:00 Blood Culture (Wb) - Right Hand Blood Culture - Preliminary Staphylococcus aureus 04/12/21 17:30 Blood Culture (Wb) - Anticubital Left Blood Culture - Preliminary 04/12/21 20:05 Stool Stool Occult Blood (JOSÉ MANUEL) - Final Occult Blood Positive Radiography Diagnostic Testing: Radiology Impression Echocardiogram 04/12/21 20:54 Interpretation Summary The estimated ejection fraction is 65 %. No evidence for diastolic dysfunction. Ordering Physician: Cristel Chu Referring Physician: EKATERINA PCP Performed By: Anika Sales, KIRACS, RVT Physical Exam Const Constitutional Narrative: Disheveled. Appears older than stated age. Less moaning today General Appearance: ill appearing HEENT normocephalic HEENT Narrative: Abrasions and dry mouth are improving Head and Scalp: abrasion Abrasion Size: Multiple abrasions throughout the face Teeth and Gingiva: poor dentition Eyes PERRL and EOMs intact bilaterally Eyes Narrative: Slightly pale conjunctive a Sclera: sclera normal Neck full ROM Neck Narrative: Cervical lymphadenopathy noted Chest Chest: abnormal inspection of the chest increased A-P diameter and symmetrical chest wall rise; Negative for crepitus Resp Effort and Inspection: Negative for actively coughing Auscultation: diminished lung sounds; Negative for rales, rhonchi or wheezes Cardio S1 normal heart sound, S2 normal heart sound, no murmurs, no rub and no gallops Rate: tachycardic Peripheral Pulses: radial pulses present and posterior tibial pulses present GI soft to palpation and non-tender Palpation: Negative for guarding Percussion: Negative for fluid wave Extremity General Extremity: Negative for clubbing, cyanosis or edema Skin Skin Narrative: Significant unstageable wound of the buttocks and sacrum. Multiple abrasions throughout the face and extremities. No obvious purulence or fluctuance appreciated. Neuro Neuro Narrative: No focal neurologic deficits. RASS -1. Not following many commands Psych Appearance: unkempt Mood & Affect: flat affect Charges/Coding Visit Charges Inpatient E&M: 83018 Subs Hosp L3
[2021-04-14] MEDS: Vancomycin IV 1,000 MG/200 ML BAG 200 MG IV ×2 (07:00→18:24)
[2021-04-14] MEDS: Ipratropium/Albuterol Sulfate 3 ML AMPUL.NEB INHALATION ×3 (07:07→19:45)
[2021-04-14] MEDS: Juven (unflavored) Packet 1 PACKET PO ×2 (07:35→15:59)
--- NOTE | 2021-04-14 10:09 | PN.HOSP_ITS ---
Subjective Subjective States that his legs are weak. Objective Data Objective Data Vital Signs: Vital Signs Temp Pulse Resp BP Pulse Ox 37.1 C 92 18 126/72 H 95 04/14/21 08:00 04/14/21 08:00 04/14/21 08:00 04/14/21 08:00 04/14/21 08:00 Oxygen Flow Rate (L/min) 2 Oxygen Delivery Method Room Air Weight: 91 kg Body Mass Index (BMI) 26.5 Intake & Output: Intake and Output for Last 24 Hours 04/12/21 04/13/21 04/14/21 23:59 23:59 23:59 Intake Total 2435 / 2447 4028.88 / 4028.88 363.92 / 363.92 Output Total 2650 / 2650 750 / 750 Balance 2435 / 1497 1378.88 / 1378.88 -386.08 / -386.08 Medical Nutrition Assessment Dietitian: Malnutrition Criteria Met Start: 04/13/21 12:55 Freq: Status: Active Protocol: Document 04/14/21 09:24 [facility] (Rec: 04/14/21 09:24 [facility] [id number]) Nutrition Malnutrition Evidence of Malnutrition Exists Yes Malnutrition (severe): Chronic Evidenced By Suboptimal Energy Intake ( Severe),Weight Loss (Severe) Clinical Problem Chronic Disease or Condition Related Malnutrition Etiology Severe protein-calorie malnutrition in the context of chronic disease/injury and social circumstance related to increased energy expenditure/ inadequate oral intake, pressure injury and drug abuse Signs/Symptoms as evidenced by ~10% wt loss at time of adm x 1 month and PO meeting less than 50% estimated nutrition needs for protein and calories Status Active Problem Recommendation Dietitian Recommendations/Changes Recommend advance PO as tolerated to Regular diet. Will continue 240ml ensure clear TID w/ meals. Will conitnue Darryl BID w/ medpass for wound healing. Adjust ONS as diet advanced from clear liquids. May need to consider enteral nutrition support if PO established inadequate at meals and weight continues to decline. Lab / Micro Data Result Diagrams: 04/14/21 05:35 04/14/21 05:35 Labs: Laboratory Results - last 24 hr 04/12/21 21:50: Crossmatch See Detail 04/13/21 16:37: APTT 47.6 H 04/13/21 23:20: APTT 55.4 H 04/14/21 05:35: Vancomycin Trough 18.3 H 04/14/21 05:35: APTT 50.1 H 04/14/21 05:35: WBC 38.8 H*, RBC 2.62 L, Hgb 6.1 L, Hct 19.1 L, MCV 72.9 L, MCH 23.3 L, MCHC 31.9 L, RDW Std Deviation 55.9 H, RDW Coeff of Pilo 21.8 H, Plt Count 409, MPV 9.0, Neut % (Auto) Not Reportable, Absolute Neuts (auto) 36.1 H, Absolute Lymphs (auto) 1.55, Total Counted 100, Neutrophils % (Manual) 85 H, Band Neutrophils % 5, Lymphocytes % (Manual) 4 L, Monocytes % (Manual) 3, Metamyelocytes % 3 H, Nucleated RBCs/100 WBC 2, Differential Comment SCANNED, Diff Path Review June, Platelet Estimate ADEQUATE, Polychromasia 1+, Anisocytosis 2+, Microcytosis 1+, Macrocytosis 1+, Schistocytes RARE 04/14/21 05:35: Sodium 131 L, Potassium 4.2, Chloride 98, Carbon Dioxide 27.0, Anion Gap 6, BUN 29 H, Creatinine 0.87, Estim Creat Clear Calc 98.57, Est GFR (MDRD) Af Amer 116, Est GFR (MDRD) Non-Af 96, BUN/Creatinine Ratio 33.3 H, Glucose 106, Calcium 7.4 L, Magnesium 2.2 04/14/21 05:35: Phosphorus 2.5 Micro: Microbiology 04/13/21 14:15 Blood Culture (Wb) - Anticubital Left Blood Culture - Preliminary 04/12/21 17:30 Blood Culture (Wb) - Anticubital Left Blood Culture - Final Staphylococcus aureus 04/12/21 15:00 Blood Culture (Wb) - Right Hand Bacteria Detection (PCR) - Final Staphylococcus aureus 04/12/21 15:00 Blood Culture (Wb) - Right Hand Blood Culture - Preliminary Staphylococcus aureus 04/13/21 14:00 Blood Culture (Wb) - Right Wrist Blood Culture - Preliminary 04/12/21 16:18 Urine Catheter - Catheter Urine Culture - Preliminary Staphylococcus aureus 04/12/21 20:05 Stool Stool Occult Blood (JOSÉ MANUEL) - Final Occult Blood Positive Radiography Diagnostic Testing: Radiology Impression Echocardiogram 04/12/21 20:54 Interpretation Summary The estimated ejection fraction is 65 %. No evidence for diastolic dysfunction. Ordering Physician: Cristel Chu Referring Physician: EKATERINA PCP Performed By: Anika Sales, KASEY, RVT Physical Exam Narrative Physical exam: General: Alert, Oriented x3, Cooperative, appears chronically unwell, unkempt, looks older than age, on 2 L of oxygen HEENT: Atraumatic Oral: Dry mucosa Neck: Supple Lungs: Diminished to auscultation, transmitted sounds Cardiovascular: HS I+II, regular, no murmurs Abdomen: Bowel Sounds Present, Soft, Non Tender Extremities: Bilateral leg edema +3 Skin: Coccygeal and left buttocks decubitus ulcers, unstageable Neurological: Grossly intact Psych/Mental Status: Appropriate Const alert Constitutional Narrative: disheveled. afebrile Neck no lymphadenopathy Resp normal respiratory effort, no retractions, no use of accessory muscles and clear to auscultation bilaterally Cardio regular rate, regular rhythm, S1 normal heart sound and S2 normal heart sound GI normal to inspection, nondistended, normoactive bowel sounds, soft to palpation, non-tender and non-distended Extremity Extremity Narrative: cyanosis on toes. edema. Skin Skin Narrative: numerous excoriations and superficial wounds. Assessment & Plan Assessment/Plan (1) Acute deep vein thrombosis (DVT): QUALIFIERS: DVT location: lower extremity Affected thrombotic vein of extremity: other lower extremity vein Laterality: bilateral Qualified Code(s): I82.493 - Acute embolism and thrombosis of other specified deep vein of lower extremity, bilateral (2) Sepsis: QUALIFIERS: Sepsis type: sepsis due to unspecified organism Sepsis acute organ dysfunction status: with acute organ dysfunction Severe sepsis acute organ dysfunction type: acute renal failure Acute renal failure type: unspecified Severe sepsis shock status: without septic shock Qualified Code(s): A41.9 - Sepsis, unspecified organism; R65.20 - Severe sepsis without septic shock; N17.9 - Acute kidney failure, unspecified (3) LAVELL (acute kidney injury): (4) Acute pulmonary embolism: QUALIFIERS: Pulmonary embolism type: other Acute cor pulmonale presence: without acute cor pulmonale Qualified Code(s): I26.99 - Other pulmonary embolism without acute cor pulmonale (5) Bacteremia: (6) Pneumonia: (7) Pulmonary embolism: (8) Acute blood loss anemia: (9) GI bleed: PLAN: 1. sepsis POA Secondary to bacteremia and pneumonia on vanc and pip/tazo follow up cx 2. S. aureus bacteremia Of unknown primary this time Repeat blood cultures + for gram positive cocci in clusters Concern for endocarditis TTE unremarkable Consult ID Cardiology for MORELIA Lesions on toes are concerning for embolic phenomenon 3. Pulmonary embolism v. septic emboli continue heparin gtt 4. Pneumonia unclear type follow up cx 5. LAVELL resolved 6. Acute Blood loss anemia 2/2 GIB 04/14: transfused 2 units 7. GI bleed Seen by GI Eventually will need EGD and Cscope 8. Sacral decubitus ulcers PRS and wound care 9. Polysubstance abuse complicates care consider buprenorphine taper if active withdrawal 10. VTE prophylaxis: not indicated Charges/Coding Visit Charges Inpatient E&M: 15930 Subs Hosp L3
--- NOTE | 2021-04-14 11:57 | CT_ITS ---
STUDY: CT ABDOMEN AND PELVIS WITH CONTRAST REASON FOR EXAM: Male, 60 years old. GI bleed and possible bowel obstruction, right leg pain, sacral wound, hx drug use. RADIATION DOSAGE (If Supplied By Facility): CTDIvol = ( 13.02 ) mGy, DLP = ( 957.76 ) mGycm TECHNIQUE: Transaxial images were obtained from the dome of the diaphragm to the symphysis pubis without oral contrast. IV 100mL Isovue-370 was administered. Sagittal and coronal images were reconstructed. Individualized dose optimization techniques were used for this CT. COMPARISON: None. FINDINGS: Alveolar density in the right lower lobe consistent with right lower lobe pneumonia. Moderate right pleural effusion. Small left pleural effusion. The visualized portions of the heart are within normal limits. Normal liver. Normal gallbladder and extrahepatic biliary system. Normal spleen. Normal pancreas. Normal bilateral adrenal glands. Normal right kidney. Normal left kidney. Normal visualized stomach. Normal small intestine. Large amount of stool throughout the colon suggestive of constipation. The appendix is visualized and appears normal. Normal abdominal aorta. Normal inferior vena cava. Normal retroperitoneum. Medel catheter within the collapsed bladder. There are multiple peripherally enhancing fluid collections within the adductor musculature of the proximal right thigh worrisome for abscesses. Clinical correlation is recommended. Mild dextroscoliosis of the lumbar spine with degenerative disc disease. CT/Abdomen/Pelvis W IV Cont ONLY IMPRESSION: 1. Right lower lobe pneumonia with a moderate right pleural effusion. Small left pleural effusion. 2. Suspect constipation. 3. Suspect multiple abscesses of the adductor musculature of the proximal right thigh. Clinical correlation is recommended. Electronically Signed: Ketan Mckinnon MD at 13:09 EST ,
[2021-04-14 12:55] LABS: Partial Thromboplast Time 77.4 Seconds (24.1-36.2)
[2021-04-14] MEDS: oxyCODONE 5 MG Tablet PO ×3 (13:18→22:38)
[2021-04-14] MEDS: Magnesium Citrate 300 ML PO (13:18)
--- NOTE | 2021-04-14 14:32 | PCM.PROGNOTE ---
Subjective Subjective Patient states that he has a lot of pain. He cannot localize the pain. He still working hard to breathe. He tolerated a clear liquid diet this morning. Objective Data Objective Data Vital Signs: Vital Signs Temp Pulse Resp BP Pulse Ox 98.4 F 88 22 H 115/77 94 04/14/21 13:30 04/14/21 13:39 04/14/21 13:30 04/14/21 13:30 04/14/21 13:30 Oxygen Flow Rate (L/min) 2 Oxygen Delivery Method Room Air Weight: 200 lb 9.93 oz Body Mass Index (BMI) 26.5 Intake & Output: Intake and Output for Last 24 Hours 04/12/21 04/13/21 04/14/21 23:59 23:59 23:59 Intake Total 2435 / 2447 4028.88 / 4028.88 1775.92 / 1775.92 Output Total 2650 / 2650 1250 / 1250 Balance 2435 / 1497 1378.88 / 1378.88 525.92 / 525.92 Medical Nutrition Assessment Dietitian: Malnutrition Criteria Met Start: 04/13/21 12:55 Freq: Status: Active Protocol: Document 04/14/21 09:24 [facility] (Rec: 04/14/21 09:24 [facility] [id number]) Nutrition Malnutrition Evidence of Malnutrition Exists Yes Malnutrition (severe): Chronic Evidenced By Suboptimal Energy Intake ( Severe),Weight Loss (Severe) Clinical Problem Chronic Disease or Condition Related Malnutrition Etiology Severe protein-calorie malnutrition in the context of chronic disease/injury and social circumstance related to increased energy expenditure/ inadequate oral intake, pressure injury and drug abuse Signs/Symptoms as evidenced by ~10% wt loss at time of adm x 1 month and PO meeting less than 50% estimated nutrition needs for protein and calories Status Active Problem Recommendation Dietitian Recommendations/Changes Recommend advance PO as tolerated to Regular diet. Will continue 240ml ensure clear TID w/ meals. Will conitnue Darryl BID w/ medpass for wound healing. Adjust ONS as diet advanced from clear liquids. May need to consider enteral nutrition support if PO established inadequate at meals and weight continues to decline. Lab / Micro Data Result Diagrams: 04/14/21 05:35 04/14/21 05:35 Labs: Laboratory Results - last 24 hr 04/12/21 21:50: Crossmatch See Detail 04/12/21 21:50: Crossmatch See Detail 04/13/21 16:37: APTT 47.6 H 04/13/21 23:20: APTT 55.4 H 04/14/21 05:35: Vancomycin Trough 18.3 H 04/14/21 05:35: APTT 50.1 H 04/14/21 05:35: WBC 38.8 H*, RBC 2.62 L, Hgb 6.1 L, Hct 19.1 L, MCV 72.9 L, MCH 23.3 L, MCHC 31.9 L, RDW Std Deviation 55.9 H, RDW Coeff of Pilo 21.8 H, Plt Count 409, MPV 9.0, Neut % (Auto) Not Reportable, Absolute Neuts (auto) 36.1 H, Absolute Lymphs (auto) 1.55, Total Counted 100, Neutrophils % (Manual) 85 H, Band Neutrophils % 5, Lymphocytes % (Manual) 4 L, Monocytes % (Manual) 3, Metamyelocytes % 3 H, Nucleated RBCs/100 WBC 2, Differential Comment SCANNED, Diff Path Review May foll, Platelet Estimate ADEQUATE, Polychromasia 1+, Anisocytosis 2+, Microcytosis 1+, Macrocytosis 1+, Schistocytes RARE 04/14/21 05:35: Sodium 131 L, Potassium 4.2, Chloride 98, Carbon Dioxide 27.0, Anion Gap 6, BUN 29 H, Creatinine 0.87, Estim Creat Clear Calc 98.57, Est GFR (MDRD) Af Amer 116, Est GFR (MDRD) Non-Af 96, BUN/Creatinine Ratio 33.3 H, Glucose 106, Calcium 7.4 L, Magnesium 2.2 04/14/21 05:35: Phosphorus 2.5 04/14/21 12:15: APTT 77.4 H Micro: Microbiology 04/12/21 16:18 Urine Catheter - Catheter Urine Culture - Final Staphylococcus aureus 04/13/21 14:15 Blood Culture (Wb) - Anticubital Left Blood Culture - Preliminary 04/12/21 17:30 Blood Culture (Wb) - Anticubital Left Blood Culture - Final Staphylococcus aureus 04/12/21 15:00 Blood Culture (Wb) - Right Hand Bacteria Detection (PCR) - Final Staphylococcus aureus 04/12/21 15:00 Blood Culture (Wb) - Right Hand Blood Culture - Preliminary Staphylococcus aureus 04/13/21 14:00 Blood Culture (Wb) - Right Wrist Blood Culture - Preliminary 04/12/21 20:05 Stool Stool Occult Blood (JOSÉ MANULE) - Final Occult Blood Positive Radiography Diagnostic Testing: Radiology Impression Abdomen/Pelvis CT 04/14/21 11:57 IMPRESSION: 1. Right lower lobe pneumonia with a moderate right pleural effusion. Small left pleural effusion. 2. Suspect constipation. 3. Suspect multiple abscesses of the adductor musculature of the proximal right thigh. Clinical correlation is recommended. Electronically Signed: Ketan Mckinnon MD at 13:09 EST , Physical Exam Const alert General Appearance: cooperative Orientation / Consciousness: oriented to person HEENT hearing grossly normal bilaterally Head and Scalp: normal to inspection Face and Sinus: face symmetric Nose: external nose normal Mouth: oral and palatal mucosa normal Eyes conjunctivae normal General Eye: normal appearance of both eyes Neck full ROM General: normal visual inspection Lymph Lymphatic: no lymphadenopathy noted Chest inspection of chest normal and palpation of chest normal Chest: symmetrical chest wall rise Resp normal respiratory effort Effort and Inspection: able to speak in complete sentences Cardio regular rate GI non-distended Percussion: normal to percussion Rectal Exam: deferred Extremity Extremity Narrative: Right upper extremity extremely painful to touch. General Extremity: weight-bearing difficulty Peripheral Pulses: Yes pulses 2+ throughout Neuro Speech: speech normal Gait (Neuro): normal gait Assessment & Plan Assessment/Plan (1) Acute blood loss anemia: PLAN: I am not sure if he is having any GI blood loss at this time. He does have a microcytic anemia which is suspicious for a chronic GI blood loss in a patient that has not had a previous colonoscopy. He should undergo upper and lower endoscopy however the his CT scan of the abdomen pelvis had shown large abscesses in his right upper extremity and I am concerned for hemorrhagic transformation as the reason why he is having acute blood loss anemia. (2) Pain in right leg: PLAN: I will suggest surgical consultation and interventional radiology consultation. Charges/Coding Visit Charges Inpatient E&M: 51662 Subs Hosp L3
--- NOTE | 2021-04-14 14:35 | CON.PCM.SX_ITS ---
Assessment & Plan Assessment/Plan (1) Abscess of muscle of thigh: PLAN: 60-year-old male with past history of IV drug use, who is currently admitted to the ICU following diagnoses of pulmonary embolus, DVT, profound ane jennifer, and leukocytosis who underwent CT of the abdomen and pelvis and found to have numerous abscesses of the adductor musculature bilaterally. Patient has a rather large loculated fluid collection in the right thigh that looks potentially amenable to percutaneous drainage. Given the patient's concurrent anticoagulation, recommend CT-guided abscess drain and a heparin window. I have asked nursing to hold patient's heparin at 8:00 and ordered a radiology consult for consideration of drainage procedure. The remainder of the abscesses look to small for percutaneous drainage so broad-spectrum IV antibiotic coverage should be continued. (2) Abdominal pain in male: PLAN: Patient describes abdominal tenderness on exam, but his exam is rather reassuring. CT imaging does not find any acute process of the abdomen, but does corroborate patient's reports of constipation. Gastroenterology has already prescribed magnesium citrate. The whereabouts of 3 units PRBCs still remains unknown given patient's refractory hemoglobin despite transfusion yesterday. No acute surgical intervention indicated at this time based on exam and imaging. HPI Consult Data Date of Consult: 04/14/21 HPI Narrative HPI Narrative: ROMEO DOVER, is a 60 M who presented to [facility] on 04/12/2021 with complaints of inability to ambulate, weakness, and shortness of breath. He is found to have large PE and a soleus DVT and was started on systemic heparin. Additionally he was noted to have a significant leukocytosis and described significant pain of his abdomen, backside, and lower extremities. Additionally he is noted to be profoundly anemic and a gastroenterology consult was obtained to assess for the possibility of occult GI losses. Patient was transfused 3 units PRBCs yesterday, and his hemoglobin remains unchanged at 6 g/dL. Therefore, CT of the abdomen pelvis was obtained today that shows evidence of numerous abscesses in the bilateral adductor musculature. It is for this latter issue that surgical consultation was made. On presenting to bedside, the patient is found to be writhing in discomfort and is a rather poor historian. 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 Nursing reports that patient has both cardiology and plastic surgery consults pending. Cardiology has been asked to perform a echocardiogram to assess for possible endocarditis given that the patient has a appearance of septic emboli in his toe s. Plastic surgery has been asked to evaluate the patient for debridement of a unstageable sacral ulcer. [facility] Medical History (Updated 04/14/21 @ 16:[address] Gino Reese MD) Atherosclerotic heart disease of [place] coronary artery with other forms of angina pectoris Chest pain Chronic pain COPD (chronic obstructive pulmonary disease) Hypertension Old myocardial infarction Shortness of breath Tobacco abuse Home Medications NK 04/12/21 [History Last Taken Unknown] Allergy/AdvReac Type Severity Reaction Status Date / Time aspirin Allergy Hives Verified 04/12/21 14:55 Sulfa (Sulfonamide Allergy Hives Verified 04/12/21 14:55 Antibiotics) epinephrine AdvReac Anaphylaxis Verified 04/12/21 14:55 Bee stings Allergy Anaphylaxis Uncoded 04/12/21 14:55 Family History Father CVA (cerebral vascular accident) COPD (chronic obstructive pulmonary disease) Mother CVA (cerebral vascular accident) Surgical History no surgical history Social History household members: other details: room mate Smoking Status: Heavy Smoker (>10/day) second hand exposure: Yes substance use type: heroin and amphetamines Physical Exam Const alert Constitutional Narrative: Uncomfortable, not entirely appropriate with answering history questions GI GI Narrative: Mildly distended, soft, tender to palpation diffusely but greatest in the left lower quadrant Back/Spine Back/Spine Narrative: Patient with approximately 8 cm diameter unstageable sacral decubitus ulcer that exhibits signs of dry gangrene. He also has satellite lesions extending down bilateral lower extremities. There is no sig nificant erythema around any of the sites nor drainage. Extremity Extremity Narrative: Patient with significant bilateral lower extremity swelling and faintly palpable pedal pulses. Over the inner thighs?particularly the right inner thigh?patient has woody edema, but there is no erythema or drainage Medical Records Data Medical Nutrition Assessment Dietitian: Malnutrition Criteria Met Start: 04/13/21 12:55 Freq: Status: Active Protocol: Document 04/14/21 09:24 [facility] (Rec: 04/14/21 09:24 [facility] [id number]) Nutrition Malnutrition Evidence of Malnutrition Exists Yes Malnutrition (severe): Chronic Evidenced By Suboptimal Energy Intake ( Severe),Weight Loss (Severe) Clinical Problem Chronic Disease or Condition Related Malnutrition Etiology Severe protein-calorie malnutrition in the context of chronic disease/injury and social circumstance related to increased energy expenditure/ inadequate oral intake, pressure injury and drug abuse Signs/Symptoms as evidenced by ~10% wt loss at time of adm x 1 month and PO meeting less than 50% estimated nutrition needs for protein and calories Status Active Problem Recommendation Dietitian Recommendations/Changes Recommend advance PO as tolerated to Regular diet. Will continue 240ml ensure clear TID w/ meals. Will conitnue Darryl BID w/ medpass for wound healing. Adjust ONS as diet advanced from clear liquids. May need to consider enteral nutrition support if PO established inadequate at meals and weight continues to decline. Lab / Micro Data Result Diagrams: 04/14/21 05:35 04/14/21 05:35 Labs: Laboratory Results - last 24 hr 04/12/21 21:50: Crossmatch See Detail 04/12/21 21:50: Crossmatch See Detail 04/13/21 16:37: APTT 47.6 H 04/13/21 23:20: APTT 55.4 H 04/14/21 05:35: Vancomycin Trough 18.3 H 04/14/21 05:35: APTT 50.1 H 04/14/21 05:35: WBC 38.8 H*, RBC 2.62 L, Hgb 6.1 L, Hct 19.1 L, MCV 72.9 L, MCH 23.3 L, MCHC 31.9 L, RDW Std Deviation 55.9 H, RDW Coeff of Pilo 21.8 H, Plt Count 409, MPV 9.0, Neut % (Auto) Not Reportable, Absolute Neuts (auto) 36.1 H, Absolute Lymphs (auto) 1.55, Total Counted 100, Neutrophils % (Manual) 85 H, Band Neutrophils % 5, Lymphocytes % (Manual) 4 L, Monocytes % (Manual) 3, Metamyelocytes % 3 H, Nucleated RBCs/100 WBC 2, Differential Comment SCANNED, Diff Path Review May foll, Platelet Estimate ADEQUATE, Polychromasia 1+, Anisocytosis 2+, Microcytosis 1+, Macrocytosis 1+, Schistocytes RARE 04/14/21 05:35: Sodium 131 L, Potassium 4.2, Chloride 98, Carbon Dioxide 27.0, Anion Gap 6, BUN 29 H, Creatinine 0.87, Estim Creat Clear Calc 98.57, Est GFR (MDRD) Af Amer 116, Est GFR (MDRD) Non-Af 96, BUN/Creatinine Ratio 33.3 H, Glucose 106, Calcium 7.4 L, Magnesium 2.2 04/14/21 05:35: Phosphorus 2.5 04/14/21 12:15: APTT 77.4 H Micro: Microbiology 04/12/21 16:18 Urine Catheter - Catheter Urine Culture - Final Staphylococcus aureus 04/13/21 14:15 Blood Culture (Wb) - Anticubital Left Blood Culture - Preliminary 04/12/21 17:30 Blood Culture (Wb) - Anticubital Left Blood Culture - Final Staphylococcus aureus 04/12/21 15:00 Blood Culture (Wb) - Right Hand Bacteria Detection (PCR) - Final Staphylococcus aureus 04/12/21 15:00 Blood Culture (Wb) - Right Hand Blood Culture - Preliminary Staphylococcus aureus 04/13/21 14:00 Blood Culture (Wb) - Right Wrist Blood Culture - Preliminary Radiology Impression Abdomen/Pelvis CT 04/14/21 11:57 IMPRESSION: 1. Right lower lobe pneumonia with a moderate right pleural effusion. Small left pleural effusion. 2. Suspect constipation. 3. Suspect multiple abscesses of the adductor musculature of the proximal right thigh. Clinical correlation is recommended. Electronically Signed: Ketan Mckinnon MD at 13:09 EST , Charges/Coding Visit Charges Inpatient E&M: 02372 Init Hosp L2
[2021-04-14 17:05] LABS: Hematocrit 22.2 % (40-54); Hemoglobin 7.3 g/dL (13.0-16.5)
[2021-04-14] MEDS: 0.9% Saline Lock 10 ML Syringe IV (22:09)
[2021-04-15] VITALS (42 sets, daily range): BP systolic 91–142; BP diastolic 49–97; PULSE 79–106; RESP 12–49; TEMP 36.4–37.5; O2SAT 87–100; BMI 27.9; BMI 27.1
[2021-04-15] MEDS: Acetaminophen 325 MG Tablet 650 MG PO ×2 (00:43→07:40)
[2021-04-15] MEDS: 0.9% Saline Lock 10 ML Syringe IV ×3 (00:43→19:57)
[2021-04-15] MEDS: oxyCODONE 5 MG Tablet PO ×3 (02:55→20:58)
[2021-04-15] MEDS: Vancomycin IV 1,000 MG/200 ML BAG 200 MG IV ×2 (06:45→19:54)
[2021-04-15 06:47] LABS: Hematocrit 20.6 % (40-54); Hemoglobin 6.8 g/dL (13.0-16.5); Mean Corpuscular Hgb 24.5 pg (27.0-32.0); Mean Corpuscular Volume 74.1 fL (80-94); Mean Platelet Vol. 8.8 fl (6.2-12.0); POSITIVE COUNT YES; POSITIVE DIFFERENTIAL YES; POSITIVE MORPHOLOGY YES; Platelet Count 325 K/mm3 (150-450); RBC Distribution Width CV 21.7 % (11.6-14.6); RBC Distribution Width SD 57.1 fl (35.1-43.9); Red Blood Count 2.78 M/mm3 (4.6-6.2); White Blood Count 31.4 K/mm3 (4.4-11.0)
[2021-04-15 06:53] LABS: Differential Indicated MANUAL DIFF
[2021-04-15] MEDS: Ipratropium/Albuterol Sulfate 3 ML AMPUL.NEB INHALATION ×2 (07:16→10:51)
[2021-04-15 07:17] LABS: ALB/GLOB Ratio 0.2 RATIO (0.9-2.4); AST(SGOT) 49 U/L (15-37); Alanine Aminotransfer ALT/SGPT 35 U/L (16-61); Alkaline Phosphatase 147 U/L (45-117); Anion Gap 5 (5-15); BUN 19 mg/dL (7-18); BUN/Creat Ratio 29.1 RATIO (10-20); Calcium,Total 6.9 mg/dL (8.5-10.1); Chloride 100 mmol/L (98-107); Creatinine, Serum 0.65 mg/dL (0.70-1.30); EST Glomerular Filtration Rate 133 mL/min (>60); Est Glom Filt Rate - Afr Amer 161 mL/min (>60); Estimated Creatinine Clearance 131.94 ml/min; Glucose 85 mg/dL (74-106); Potassium 3.3 mmol/L (3.5-5.1); Sodium Level 131 mmol/L (136-145)
[2021-04-15 07:18] LABS: Absolute Neutrophil Count 27.3 X10^3/uL (2.0-7.7); Lymphocyte 7 % (19-41); Metamyelocyte 1 % (0-1); Myelocyte 1 % (0-0); Neutrophil-Band 1 % (0-5); Neutrophil-Segmented 86 % (47-70); Promyelocyte 1 % (0-0); Total Cells Counted 100 (MANUAL DIFF)
[2021-04-15 07:19] LABS: Anisocytosis 2+; Eosinophil 1 % (0-5); Monocyte 2 % (0-10); Platelet Estimate ADEQUATE (ADEQ); Red Cell Morphology NORM C+C NORMAL (NORM C&C)
[2021-04-15] MEDS: Juven (unflavored) Packet 1 PACKET PO (07:40)
--- NOTE | 2021-04-15 08:59 | WOUNDNOTE ---
wound photo: back
--- NOTE | 2021-04-15 09:00 | WOUNDNOTE ---
wound photo: sacrum
--- NOTE | 2021-04-15 09:00 | WOUNDNOTE ---
wound photo: right ischium
--- NOTE | 2021-04-15 09:01 | WOUNDNOTE ---
wound photo: right lateral heel
--- NOTE | 2021-04-15 09:01 | WOUNDNOTE ---
wound photo: left heel
--- NOTE | 2021-04-15 09:04 | NURSING ---
TALKED WITH NURSE HOLLIDAY ABOUT TIME FOR CT DRAINAGE, WAITING FOR CT MACHINE TO BE FIXED, WILL KEEP IN TOUCH
--- NOTE | 2021-04-15 10:58 | PN.HOSP_ITS ---
Subjective Subjective Patient seen and examined. He kept complaining of back pain. He is quite lethargic though able to communicate verbally. He denies any nausea, vomiting, fever or chills. Review of systems otherwise negative. WBC today has trended down yo 31.4 and Hb is 6.8. Platelets are 325 today. Heparin drip was discontinued yesterday because of drop in his Hemoglobin and he was placed on SCDs. He is due for drainage of the fluid filled lesions, presumed to be abscesses, in the left adductor longus muscle Objective Data Objective Data Vital Signs: Vital Signs Temp Pulse Resp BP Pulse Ox 97.6 F L 98 20 H 141/89 H 97 04/15/21 03:45 04/15/21 07:16 04/15/21 07:16 04/15/21 03:45 04/15/21 09:03 Oxygen Flow Rate (L/min) 98 Oxygen Delivery Method Room Air Weight: 202 lb 9.677 oz Body Mass Index (BMI) 27.9 Intake & Output: Intake and Output for Last 24 Hours 04/13/21 04/14/21 04/15/21 23:59 23:59 23:59 Intake Total 4028.88 / 4028.88 3044.32 / 3044.32 300 / 300 Output Total 2650 / 2650 2150 / 2650 1400 / 1400 Balance 1378.88 / 1378.88 894.32 / 394.32 -1100 / -1100 Medical Nutrition Assessment Dietitian: Malnutrition Criteria Met Start: 04/13/21 12:55 Freq: Status: Active Protocol: Document 04/14/21 09:24 GABRIELE (Rec: 04/14/21 09:24 GABRIELE [id number]) Nutrition Malnutrition Evidence of Malnutrition Exists Yes Malnutrition (severe): Chronic Evidenced By Suboptimal Energy Intake ( Severe),Weight Loss (Severe) Clinical Problem Chronic Disease or Condition Related Malnutrition Etiology Severe protein-calorie malnutrition in the context of chronic disease/injury and social circumstance related to increased energy expenditure/ inadequate oral intake, pressure injury and drug abuse Signs/Symptoms as evidenced by ~10% wt loss at time of adm x 1 month and PO meeting less than 50% estimated nutrition needs for protein and calories Status Active Problem Recommendation Dietitian Recommendations/Changes Recommend advance PO as tolerated to Regular diet. Will continue 240ml ensure clear TID w/ meals. Will conitnue Darryl BID w/ medpass for wound healing. Adjust ONS as diet advanced from clear liquids. May need to consider enteral nutrition support if PO established inadequate at meals and weight continues to decline. Lab / Micro Data Result Diagrams: 04/15/21 06:00 04/15/21 06:00 Labs: Laboratory Results - last 24 hr 04/12/21 21:50: Crossmatch See Detail 04/12/21 21:50: Crossmatch See Detail 04/12/21 21:50: Crossmatch See Detail 04/14/21 12:15: APTT 77.4 H 04/14/21 16:56: Hgb 7.3 L, Hct 22.2 L 04/15/21 06:00: WBC 31.4 H*, RBC 2.78 L, Hgb 6.8 L, Hct 20.6 L, MCV 74.1 L, MCH 24.5 L, MCHC 33.0, RDW Std Deviation 57.1 H, RDW Coeff of Iplo 21.7 H, Plt Count 325, MPV 8.8, Neut % (Auto) Not Reportable, Absolute Neuts (auto) 27.3 H, Absolute Lymphs (auto) 2.20, Total Counted 100, Neutrophils % (Manual) 86 H, Band Neutrophils % 1, Lymphocytes % (Manual) 7 L, Monocytes % (Manual) 2, Eosinophils % (Manual) 1, Metamyelocytes % 1, Myelocytes % 1 H, Promyelocytes % 1 H, Diff Path Review May foll, Platelet Estimate ADEQUATE, RBC Morphology NORM C+C, Anisocytosis 2+ 04/15/21 06:00: Sodium 131 L, Potassium 3.3 L, Chloride 100, Carbon Dioxide 26.0, Anion Gap 5, BUN 19 H, Creatinine 0.65 L, Estim Creat Clear Calc 131.94, Est GFR (MDRD) Af Amer 161, Est GFR (MDRD) Non-Af 133, BUN/Creatinine Ratio 29.1 H, Glucose 85, Calcium 6.9 L, Total Bilirubin 0.60, AST 49 H, ALT 35, Alkaline Phosphatase 147 H, Total Protein 6.0 L, Albumin 1.0 L, Globulin 5.0 H, Albumin/Globulin Ratio 0.2 L Micro: Microbiology 04/13/21 14:00 Blood Culture (Wb) - Right Wrist Blood Culture - Preliminary Staphylococcus aureus 04/13/21 14:15 Blood Culture (Wb) - Anticubital Left Blood Culture - Preliminary Staphylococcus aureus 04/12/21 15:00 Blood Culture (Wb) - Right Hand Bacteria Detection (PCR) - Final Staphylococcus aureus 04/12/21 15:00 Blood Culture (Wb) - Right Hand Blood Culture - Final Staphylococcus aureus 04/12/21 16:18 Urine Catheter - Catheter Urine Culture - Final Staphylococcus aureus 04/12/21 17:30 Blood Culture (Wb) - Anticubital Left Blood Culture - Final Staphylococcus aureus 04/12/21 20:05 Stool Stool Occult Blood (JOSÉ MANUEL) - Final Occult Blood Positive Radiography Diagnostic Testing: Radiology Impression Abdomen/Pelvis CT 04/14/21 11:57 IMPRESSION: 1. Right lower lobe pneumonia with a moderate right pleural effusion. Small left pleural effusion. 2. Suspect constipation. 3. Suspect multiple abscesses of the adductor musculature of the proximal right thigh. Clinical correlation is recommended. Electronically Signed: Ketan Mckinnon MD at 13:09 EST , Physical Exam Const alert Orientation / Consciousness: lethargic Exam Limitations: no limitations HEENT head/scalp atraumatic Head and Scalp: normocephalic Mouth: dry mucous membranes Eyes PERRL, EOMs intact bilaterally and conjunctivae normal Neck no lymphadenopathy Resp Resp Narrative: mildly diminished breath sounds bibasally, no wheezes or crackles. On room air. Cardio regular rate, regular rhythm, S1 normal heart sound, S2 normal heart sound and no murmurs GI normal to inspection, nondistended, normoactive bowel sounds, soft to palpation, non-tender and non-distended Extremity Extremity Narrative: both LEs mildly swollen, firm, calf tenderness to palpation Peripheral Pulses: Yes pulses 2+ throughout Skin no rashes or lesions noted Neuro oriented x3, CN's II-XII intact bilaterally and moves all extremities Neuro Narrative: lethargic, uncomfortable Sensorium / Orientation: awake and alert Psych Mood & Affect: anxious Assessment & Plan Assessment/Plan (1) Abscess of muscle of thigh: (2) Acute blood loss anemia: (3) Anemia: (4) Pulmonary embolism: (5) Bacteremia: (6) Acute deep vein thrombosis (DVT): QUALIFIERS: DVT location: lower extremity Affected thrombotic vein of extremity: other lower extremity vein Laterality: bilateral Qualified Code(s): I82.493 - Acute embolism and thrombosis of other specified deep vein of lower extremity, bilateral PLAN: #Acute bilateral DVT and PE * heparin drip discontinued yesterday as patient was anemic and had the absc esses in the abductor muscle of the RLE which was concerning for possible hematoma * patient currently on SCDs * I think it is imperative that patient is placed back on the heparin drip due to his high risk for thrombosis in light of his extensive bilateral DVT and PE. Additionally, his MRSA positive and he is also at risk for septic emboli. * Patient is to have drainage of the abscesses today. Per discussion with surgery, this may be suspicious for infected hematoma as well. Will place patient back on heparin drip right after he has the procedure today. * 2D echo showed no evidence of endocarditis showed no evidence of right heart strain * #Sepsis due to MRSA bacteremia * Likely due to his history of IV drug use. * Repeat blood cultures were positive again for MRSA. * 2D echo negative for any evidence of endocarditis. * [facility] ordered. * ID consulted. Await recommendations. * on IV vancomycin * #Bilateral pneumonia: On IV vancomycin and Zosyn. Blood cultures positive for MRSA. Sputum cultures pending. On room air. #Acute blood loss anemia * Hemoglobin today is down to 6.8. Stool for occult blood was positive. GI evaluated patient and is concerned that he may be having underlying chronic anemia as well as he has microcytic anemia. This would not explain his acute blood loss now. He has been transfused with 2 units of packed red blood cells but hemoglobin is still 6.8. * Will transfuse with 1 unit of packed red blood cells now. * GI on board and patient is to have EGD and colonoscopy during this admission once he is more stable * On IV PPI * #Sacral decubitus ulcers: Present on admission. Plastic surgery consulted. Wound care on board. #History of polysubstance abuse: * Patient admits to using IV heroin * Not in acute withdrawal now. Will place. Withdrawal protocol with bu prenorphine if he goes into acute withdrawal * DVT prophylaxis: Not indicated as patient is currently on DVT and PE. Charges/Coding Visit Charges Inpatient E&M: 61776 [facility] Hosp L3
--- NOTE | 2021-04-15 11:10 | CASEMGMT ---
GARRICK BOTELLO Face to Face with patient for initial transition planning/care coordination assessment. GARRICK BOTELLO introduced self and role at [facility]. Patient lying in bed, alert and oriented. Patient willing to participate in assessment and is able to answer all questions appropriately. Care providers, pharmacy, and demographics verified. Patient wishes to discharge home. Discussed possible SNF if patient is not able to ambulate on his own, patient stated he would think about it. Patient states he has no further needs or concerns at this time. SW updated regarding possible placement. CM to follow for discharge planning needs that may arise. PCP: None, CM to provide patient with list Specialists: none Preferred Pharmacy: [facility] Insurance: [employer] Prescription Benefit: yes Living Will/HPOA: none LNOK: friendErika Living Arrangements: Patient states he lives with friendErika, in a first floor apartment with no steps to enter. Patient states he was independent at home. Transportation: friend DME/HHC: Patient denies DME or previous HHC or SNF. Patient states he smokes a couple cigarettes a day. Patient states he also does 1/10th of gram of heroine daily for the last couple of years. Denied alcohol use. GARRICK BOTELLO inquired if patient would like resource for drug abuse, patient denied. CM will continue to monitor course of treatment and progress with therapy. Disposition Plan: MANDO CASTELLANOS, RN, CM
--- NOTE | 2021-04-15 11:14 | PN.CC_ITS ---
Assessment & Plan Assessment/Plan (1) Sepsis: QUALIFIERS: Acute renal failure type: unspecified Sepsis acute organ dysfunction status: with acute organ dysfunction Sepsis type: sepsis due to unspecified organism Severe sepsis acute organ dysfunction type: acute renal failure Severe sepsis shock status: without septic shock Qualified Code(s): A41.9 - Sepsis, unspecified organism; R65.20 - Severe sepsis without septic shock; N17.9 - Acute kidney failure, unspecified (2) LAVELL (acute kidney injury): (3) Decubitus ulcers: QUALIFIERS: Pressure injury location: sacral region Pressure injury stage: unstageable Qualified Code(s): L89.150 - Pressure ulcer of sacral region, unstageable (4) Acute pulmonary embolism: QUALIFIERS: Acute cor pulmonale presence: without acute cor pu lmonale Pulmonary embolism type: other Qualified Code(s): I26.99 - Other pulmonary embolism without acute cor pulmonale (5) Acute deep vein thrombosis (DVT): QUALIFIERS: Affected thrombotic vein of extremity: other lower extremity vein DVT location: lower extremity Laterality: bilateral Qualified Code(s): I82.493 - Acute embolism and thrombosis of other specified deep vein of lower extremity, bilateral PLAN: RECOMMENDATIONS: 1. Continue antimicrobials. Infectious diseases consultation is pending. 2. Proceed with CT-guided abscess drainage. 3. Transfuse additional packed red blood cells. 4. Systemic anticoagulation is on hold. 5. The patient may eventually require IVC filter placement if anticoagulation is not feasible. 6. Continue PPI therapy for now. GI is following. IMPRESSIONS: 1. Sepsis secondary to staph bacteremia Sepsis due to staph bacteremia with acute sepsis related organ dysfunction as evidenced by acute kidney injury. The patient has multiple potential sources for secondary hematogenous spread including possible pneumonia, soft tissue abscess and urinary tract infection. Plan to continue supportive measures including antimicrobials. Infectious diseases consultation is pending. There are tentative plans for CT-guided abscess drainage today. 2. Lower extremity DVTs with bilateral pulmonary emboli and associated hypoxemia While the patient does have a smoking history and may potentially have obstructive lung disease, he also has lower extremity DVT with associated venous thromboembolic disease. Unfortunately, the patient systemic anticoagulation had to be placed on hold after he developed worsening anemia. If the patient is unable to be resumed on anticoagulation in the near future, would need to consider IVC filter placement. 3. Anemia Likely multifactorial. Although the patient did have a stool which was positive for occult blood, CT imaging revealed findings concerning for a proximal thigh soft tissue abscess, which could potentially be an infected hematoma. There are tentative plans for CT-guided drainage. Surgery is currently following. Gastroenterology is also following. The patient will likely still require endoscopic evaluation from a GI perspective. In the interim, we will continue to transfuse blood products to maintain a hemoglobin at or above 7 g/dL. Continue PPI therapy. 4. Acute kidney injury Resolved. Likely prerenal in etiology and related to #1. Continue to monitor urine output. No current indication for renal replacement therapy. 5. Polysubstance abuse/recurrent falls/debility Complicates care, management, recovery and prognosis. Continue supportive measures as noted above. This note was generated with [employer] dictation software. It may contain incorrect words, spelling, and punctuation that were not noted in checking the note before signing. Subjective Subjective The patient was seen and examined at the bedside this morning. Events from the last 24 hours have been reviewed. The patient is currently afebrile, hemodynamically stable and maintaining appropriate oxygen saturations on room air. The patient is currently documented to be overall net +3.6 L for the hospitalization. He remains on broad-spectrum antimicrobials. White count is elevated at 31,000. Hemoglobin is low at 6.8 g/dL. Potassium is low at 3.3. Objective Data Objective Data The patient's most recent lab work, culture data and imaging studies have all been personally reviewed. Blood cultures remain positive for staph aureus. Vital Signs: Vital Signs Temp Pulse Resp BP Pulse Ox 97.6 F L 98 20 H 141/89 H 97 04/15/21 03:45 04/15/21 07:16 04/15/21 07:16 04/15/21 03:45 04/15/21 09:03 Oxygen Flow Rate (L/min) 98 Oxygen Delivery Method Room Air Weight: 91.9 kg Body Mass Index (BMI) 27.9 Intake & Output: Intake and Output for Last 24 Hours 04/13/21 04/14/21 04/15/21 23:59 23:59 23:59 Intake Total 4028.88 / 4028.88 3044.32 / 3044.32 300 / 300 Output Total 2650 / 2650 2150 / 2650 1400 / 1400 Balance 1378.88 / 1378.88 894.32 / 394.32 -1100 / -1100 Medical Nutrition Assessment Dietitian: Malnutrition Criteria Met Start: 04/13/21 12:55 Freq: Status: Active Protocol: Document 04/14/21 09:24 [facility] (Rec: 04/14/21 09:24 [facility] [id number]) Nutrition Malnutrition Evidence of Malnutrition Exists Yes Malnutrition (severe): Chronic Evidenced By Suboptimal Energy Intake ( Severe),Weight Loss (Severe) Clinical Problem Chronic Disease or Condition Related Malnutrition Etiology Severe protein-calorie malnutrition in the context of chronic disease/injury and social circumstance related to increased energy expenditure/ inadequate oral intake, pressure injury and drug abuse Signs/Symptoms as evidenced by ~10% wt loss at time of adm x 1 month and PO meeting less than 50% estimated nutrition needs for protein and calories Status Active Problem Recommendation Dietitian Recommendations/Changes Recommend advance PO as tolerated to Regular diet. Will continue 240ml ensure clear TID w/ meals. Will conitnue Darryl BID w/ medpass for wound healing. Adjust ONS as diet advanced from clear liquids. May need to consider enteral nutrition support if PO established inadequate at meals and weight continues to decline. Lab / Micro Data Result Diagrams: 04/15/21 06:00 04/15/21 06:00 Labs: Laboratory Results - last 24 hr 04/12/21 21:50: Crossmatch See Detail 04/12/21 21:50: Crossmatch See Detail 04/12/21 21:50: Crossmatch See Detail 04/14/21 12:15: APTT 77.4 H 04/14/21 16:56: Hgb 7.3 L, Hct 22.2 L 04/15/21 06:00: WBC 31.4 H*, RBC 2.78 L, Hgb 6.8 L, Hct 20.6 L, MCV 74.1 L, MCH 24.5 L, MCHC 33.0, RDW Std Deviation 57.1 H, RDW Coeff of Pilo 21.7 H, Plt Count 325, MPV 8.8, Neut % (Auto) Not Reportable, Absolute Neuts (auto) 27.3 H, Absolute Lymphs (auto) 2.20, Total Counted 100, Neutrophils % (Manual) 86 H, Band Neutrophils % 1, Lymphocytes % (Manual) 7 L, Monocytes % (Manual) 2, Eosinophils % (Manual) 1, Metamyelocytes % 1, Myelocytes % 1 H, Promyelocytes % 1 H, Diff Path Review May foll, Platelet Estimate ADEQUATE, RBC Morphology NORM C+C, Anisocytosis 2+ 04/15/21 06:00: Sodium 131 L, Potassium 3.3 L, Chloride 100, Carbon Dioxide 26.0, Anion Gap 5, BUN 19 H, Creatinine 0.65 L, Estim Creat Clear Calc 131.94, Est GFR (MDRD) Af Amer 161, Est GFR (MDRD) Non-Af 133, BUN/Creatinine Ratio 29.1 H, Glucose 85, Calcium 6.9 L, Total Bilirubin 0.60, AST 49 H, ALT 35, Alkaline Phosphatase 147 H, Total Protein 6.0 L, Albumin 1.0 L, Globulin 5.0 H, Albumin/Globulin Ratio 0.2 L Micro: Microbiology 04/13/21 14:00 Blood Culture (Wb) - Right Wrist Blood Culture - Preliminary Staphylococcus aureus 04/13/21 14:15 Blood Culture (Wb) - Anticubital Left Blood Culture - Pr eliminary Staphylococcus aureus 04/12/21 15:00 Blood Culture (Wb) - Right Hand Bacteria Detection (PCR) - Final Staphylococcus aureus 04/12/21 15:00 Blood Culture (Wb) - Right Hand Blood Culture - Final Staphylococcus aureus 04/12/21 16:18 Urine Catheter - Catheter Urine Culture - Final Staphylococcus aureus 04/12/21 17:30 Blood Culture (Wb) - Anticubital Left Blood Culture - Final Staphylococcus aureus 04/12/21 20:05 Stool Stool Occult Blood (JOSÉ MANUEL) - Final Occult Blood Positive Radiography Diagnostic Testing: Radiology Impression Abdomen/Pelvis CT 04/14/21 11:57 IMPRESSION: 1. Right lower lobe pneumonia with a moderate right pleural effusion. Small left pleural effusion. 2. Suspect constipation. 3. Suspect multiple abscesses of the adductor musculature of the proximal right thigh. Clinical correlation is recommended. Electronically Signed: Ketan Mckinnon MD at 13:09 EST , Physical Exam Const General Appearance: lethargic and ill appearing HEENT normocephalic and head/scalp atraumatic Teeth and Gingiva: poor dentition Eyes PERRL and EOMs intact bilaterally Neck supple General: trachea midline Resp Auscultation: diminished lung sounds Cardio regular rate and regular rhythm GI normal to inspection, nondistended, normoactive bowel sounds Extremity no clubbing, cyanosis or edema Skin Skin Narrative: No significant change from previous Neuro no focal motor deficits Psych Appearance: unkempt Mood & Affect: flat affect Charges/Coding Visit Charges Inpatient E&M: 39912 Subs Hosp L3
[2021-04-15] MEDS: Lidocaine 5% Patch 1 PATCH TOPICAL (11:19)
--- NOTE | 2021-04-15 13:55 | CT_ITS ---
PROCEDURE: CT DIRECTED ABSCESS DRAINAGE, PERITONEAL DATE OF EXAMINATION: 04/15/2021. INDICATION: Male, 60 years old. Abscess in the right adductor muscle group. PHYSICIAN: Jose Mccoy M.D. CONSENT: Written informed consent was obtained having explained the risks, benefits and alternatives in detail with the patient who accepted the risks and agreed to proceed. Laboratory review and clinical assessment was performed. CONSCIOUS SEDATION PROTOCOL: The Drugs used were: 2 mg Versed, IV., and 100 mcg Fentanyl, IV. The sedation time was: 24 minutes. Conscious sedation was started at 2:00 PM and terminated at 4:00 PM. The conscious sedation protocol was independently monitored. RADIATION DOSAGE (If Supplied By Facility): CTDIvol = ( 11.5 ) mGy, DLP = ( 629.65 ) mGycm. Individualized dose optimization techniques were utilized. TECHNIQUE: CT sections were made through the abdomen and pelvis revealing an abscess in the right adductor muscle group of the proximal right thigh. The skin surface was prepped and draped in a sterile fashion. Puncture of this collection was performed initially with a 8 [place] [employer] catheter and fluid was aspirated. Drainage catheter was then inserted into the collection and formed into position. Additional fluid was aspirated for a total of approximately 80 cc of cloudy purulent fluid. The catheter was sutured into position to allow for continued drainage. Followup CT sections reveals good position of the catheter. CT/CT Guidance Abscess Drg w/Cath IMPRESSION: 1. CT directed drainage of a fluid collection using CT image guidance and image documentation as described. 80 cc of purulent fluid was aspirated. The patient tolerated the procedure well. 2. Conscious Sedation protocol utilized with independent monitoring Electronically Signed: Jose Mccoy MD at 14:48 EST ,
[2021-04-15] MEDS: fentaNYL 100 MCG/2 ML Ampul IV ×2 (14:00→14:15)
[2021-04-15] MEDS: Midazolam 2 MG/2 ML Syringe IV (14:00)
[2021-04-15 14:04] LABS: Pathologist Review Reviewed
[2021-04-15] MEDS: Lidocaine 2% (20 ml mdv) 20 ML Vial INFILT (14:10)
[2021-04-15 14:11] LABS: Pathologist Review Reviewed
--- NOTE | 2021-04-15 14:12 | PCM.PN.ID ---
ID ID: Route of nutrition/ use of supplements: [] Nutritional Intake: [] IV Site: [] Medel Catheter: [] Assessment & Plan Assessment/Plan (1) Bacteremia: PLAN: Pt has been gone to [facility] and I&D this afternoon. Ordered bcx and MRI R foot. Cont with broad coveraged with vanc/zosyn. Will also check hiv and hep panel. Will do full consult in AM, please call with any questions.
[2021-04-15 14:15] LABS: Pathologist Review Reviewed
--- NOTE | 2021-04-15 14:15 | FLU_PTH ---
PATIENT: ROMEO DOVER Jr. LOC: ICU U#:[id number] AGE/SX: 60/M ROOM: ICU03 RE04/12/[address]: Dr. Leticia Kim MD : [id number] BED: 1 DIS: 04/17/2021 SPEC #: [id number] RECD: 04/15/21 14:51 STATUS: SOUT REQ #: [id number] CESAR: 04/15/21 14:[address]: Gino Reese DEPT: CYTOLOGY RECD BY: Teresa Jacques ENTERED: 04/16/21 08:37 SP TYPE: Fluid OTHR DR: MD Dr. Reilly Barney MD Dr. Derek Brown, DO Dr. James A Slaby, MD Dr. Nana Yaa Koram, MD Dr. Paul Moodispaw, MD Dr. Robert Leininger, MD Primary Care Phys Bella Evans, DIRECTOR OF TEACHER EDUCATION-C Tissues: Thigh, NOS Procedures: Special Stain Group II Surgery Specimen Level IV Cytospin Fluid Comments: @ Ordering doctor for SSII edited from to @ by GIULIANO at 04/16/21 135 @ Ordering doctor for SUIV edited from to @ by GIULIANO at 04/16/21 1357 @ Ordering doctor for CYSPIN edited from to @ by GIULIANO at 04/16/21 135 @ Submitting doctor edited from to @ by GIULIANO at 04/16/21 1357 HEADER OPERATION: CT-guided abscess drainage, right thigh PRE-OP DIAGNOSIS: Right thigh abscess TISSUE SUBMITTED: Right thigh abscess fluid DIAGNOSIS CYTOLOGY CT-guided fine needle aspiration, right thigh abscess (smears and cell block): Acute inflammatory cells consistent with abscess. No evidence of malignancy. AM:carolyn 04/17/2021 CYTOLOGY STUDY Slides are reviewed. CYTOLOGY GROSS Received is 50 ml of peachy, cloudy fluid labeled with the patient's name and and designated per the requisition as right thigh abscess. Submitted for cytology preparation including cell block. / carolyn 04/16/2021 TC:2 CPT: 21315, 07696
[2021-04-15 14:21] LABS: Pathologist Review Reviewed
[2021-04-15] MEDS: 0.9% Normal Saline (Pres. free 10 ML Vial ×3 (16:30→17:08)
[2021-04-15] MEDS: Epinephrine (1 mg/ml) 1 MG/ML VIAL ×3 (16:31→17:08)
--- NOTE | 2021-04-15 16:36 | PCM.PN.BLA ---
Progress Note I have been asked to evaluate this present for an unstageable sacral pressure sore and right ischial pressure sore, both with overlying necrotic tissue. He is currently getting an EGD and then he will be getting an MRI. I saw the pictures in the medical record that show the pressure sores and overlying skin necrosis. I will take him to surgery to excise these necrotic pressure sores tomorrow at 1230pm.
--- NOTE | 2021-04-15 17:29 | OP.CCLET_ITS ---
11/11/2021 No Primary Care Physician Re : Upper GI endoscopy procedure for [facility] Physician This procedure was performed on Thursday, April 15, 2021. My impressions and recommendations are as follows: Impressions : - LA Grade D esophagitis. - Normal stomach. - Multiple partially obstructing spurting duodenal ulcers with a visible vessel. There is no evidence of perforation. Injected. Treated with a heater probe. - No specimens collected. Recommendations : - Return patient to [facility] care. - Give Protonix (pantoprazole): initiate therapy with 80 mg IV bolus, then 8 mg/hr IV by continuous infusion today. - Administer an IV bolus of 50 micrograms of octreotide followed by an infusion of 50 micrograms per hour today. - Continue present medications. My findings are described in the full procedure note, which is enclosed. If I can be of further assistance, please feel free to contact me at . Sincerely, Rito Friend, 04/15/2021 5:28:44 PM This report has been signed electronically.
--- NOTE | 2021-04-15 17:29 | OP.EGD_ITS ---
Patient Name: Bright Dunn Procedure Date: 04/15/2021 4:15 PM Date of : 1960 Age: 60 Procedure: Upper GI endoscopy Indications: Active gastrointestinal bleeding Providers: Rito Barrett DO Medicines: See the Anesthesia note for documentation of the administered medications Patient Profile: This is a 60 year old male. Refer to note in patient chart for documentation of history and physical. Patient has symptoms. Complications: No immediate complications. Procedure: Pre-Anesthesia Assessment: - Prior to the procedure, a History and Physical was performed, and patient medications and allergies were reviewed. The patient is competent. The risks and benefits of the procedure and the sedation options and risks were discussed with the patient. All questions were answered and informed consent was obtained. Patient identification and proposed procedure were verified by the physician in the pre-procedure area. Mental Status Examination: alert and oriented. Airway Examination: normal oropharyngeal airway and neck mobility. Respiratory Examination: clear to auscultation. CV Examination: normal. ASA Grade Assessment: II - A patient with mild systemic disease. After reviewing the risks and benefits, the patient was deemed in satisfactory condition to undergo the procedure. The anesthesia plan was to use moderate sedation / analgesia (conscious sedation). Immediately prior to administration of medications, the patient was re-assessed for adequacy to receive sedatives. The heart rate, respiratory rate, oxygen saturations, blood pressure, adequacy of pulmonary ventilation, and response to care were monitored throughout the procedure. The physical status of the patient was re-assessed after the procedure. After obtaining informed consent, the endoscope was passed under direct vision. Throughout the procedure, the patient's blood pressure, pulse, and oxygen saturations were monitored continuously. The Endoscope was introduced through the mouth, and advanced to the third part of duodenum. The upper GI endoscopy was accomplished without difficulty. The patient tolerated the procedure well. Moderate Sedation: Moderate (conscious) sedation was administered by the endoscopy nurse and supervised by the endoscopist. The patient's oxygen saturation, heart rate, blood pressure and response to care were monitored. Total physician intraservice time was 15 minutes. Scope In: 4:22:35 PM Scope Out: 5:11:42 PM Total Procedure Duration Time 0 hours 49 minutes 7 seconds Findings: LA Grade D (one or more mucosal breaks involving at least 75% of esophageal circumference) esophagitis with no bleeding was found 34 to 35 cm from the incisors. The entire examined stomach was normal. Five partially obstructing spurting cratered duodenal ulcers with a visible vessel were found in the duodenal bulb and in the first portion of the duodenum. The largest lesion was 12 mm in largest dimension. There is no evidence of perforation. Area was successfully injected with 10 mL of a 1:10,000 solution of epinephrine for hemostasis. Coagulation for hemostasis using heater probe was successful. Estimated blood loss was minimal. Impression: - LA Grade D esophagitis. - Normal stomach. - Multiple partially obstructing spurting duodenal ulcers with a visible vessel. There is no evidence of perforation. Injected. Treated with a heater probe. - No specimens collected. Recommendation: - Return patient to [facility] for ongoing care. - Give Protonix (pantoprazole): initiate therapy with 80 mg IV bolus, then 8 mg/hr IV by continuous infusion today. - Administer an IV bolus of 50 micrograms of octreotide followed by an infusion of 50 micrograms per hour today. - Continue present medications. Procedure Code(s): --- Professional --- 02205, Esophagogastroduodenoscopy, flexible, transoral; with control of bleeding, any method 20970, 59, Moderate sedation services provided by the same physician or other qualified health healthcare network consultant performing the diagnostic or therapeutic service that the sedation supports, requiring the presence of an independent trained observer to assist in the monitoring of the patient's level of consciousness and physiological status; initial 15 minutes of intraservice time, patient age 5 years or older CPT copyright 2017 [employer]. All rights reserved. The codes documented in this report are preliminary and upon blasting machine operator review may be revised to meet current compliance requirements. Rito Barrett DO 04/15/2021 5:28:44 PM This report has been signed electronically. Number of Addenda: 1 Note Initiated On: 04/15/2021 4:15 PM Addendum Number: 1 Addendum Date: 11/11/2021 6:40:55 AM MAC was used for sedation during this procedure. Rito Barrett DO 11/11/2021 6:40:59 AM This report has been signed electronically.
--- NOTE | 2021-04-15 18:16 | RAD_ITS ---
STUDY: X-RAY CHEST REASON FOR EXAM: Male, 60 years old. CHEST PAIN sob TECHNIQUE: XR Chest 1 View COMPARISON: 3 days ago. FINDINGS: There is a right pleural effusion. Right lower lobe pneumonia. Normal size heart. Normal mediastinum and jose r. Normal visualized pulmonary arteries. Normal visualized aortic arch and descending thoracic aorta. There are diffuse degenerative changes of the visualized thoracic spine. Normal visualized ribs, clavicles, and shoulders. There is no demonstrated abnormality of the visualized soft tissue structures of the upper abdomen. RAD/Chest 1 View (Portable) IMPRESSION: There is a right pleural effusion. Right lower lobe pneumonia. Electronically Signed: Ramesh Madrid MD at 19:07 EST ,
--- NOTE | 2021-04-15 18:30 | RAD_ITS ---
EXAM: XR ABDOMEN, 1 VIEW CLINICAL INDICATION: nausea TECHNIQUE: Frontal supine view of the abdomen/pelvis. This report was created using [employer] report generation technology. COMPARISON: None. FINDINGS: GASTROINTESTINAL TRACT: Unremarkable. Non-obstructive. No bowel or stomach distention. ORGANS: Unremarkable as visualized. No organomegaly. No abnormal calcifications. BONES/JOINTS: Degenerative findings in the right hip and lumbar spine. SOFT TISSUES: No acute pathology. RAD/Abdomen Single View IMPRESSION: No acute findings. Electronically Signed: Ramesh Madrid MD at 19:09 EST ,
[2021-04-15 18:35] LABS: Allen Test Positive; Base Excess 0 mmol/L (-2 to +2); Bicarbonate 23.8 mmol/L (22-26); Blood Gas Specimen Type ART; PO2 58 mmHG (75-100); SITE R Radial; SO2 92 % (95-99); Total Carbon Dioxide 25 mmol/L; pCO2 32.1 mmHg (35-45); pH 7.48 (7.35-7.45)
[2021-04-15 18:47] LABS: Hematocrit 22.7 % (40-54); Hemoglobin 7.5 g/dL (13.0-16.5)
--- NOTE | 2021-04-15 18:54 | PN.HOSP_ITS ---
Hospitalist Note Provider requested at bedside by PACU nurses for subsequent follow-up following EGD. Patient underwent EGD with Dr. Barrett and was found to have an LA grade D esophagitis with multiple partially obstructing spurting duodenal ulcers with a visible vessel, no evidence of perforation and was treated with a heater probe and injected. PACU nurse reports that patient did not have abnormal lung sounds and was completely alert and oriented prior to EGD however upon return from EGD patient was noted to be agitated, restless and have respirations in the 30s to 40s. Upon evaluation patient is noted to have harsh expiratory wheezes and crackles in bilateral anterior posterior bases. Patient not currently requiring oxygen, SPO2 99%. It is of note that patient has underwent 2 procedures today having got a DAVID drain placed by IR prior to his EGD. In PACU an ABG, chest x- ray, KUB were obtained. ABG pH 7.48, bicarb 23.8, total CO2 25, O2 saturation 92%, ABG PCO2 32.1, ABG PO2 58. Chest x-ray and KUB obtained, reports pending. Repeat H&H also pending. Patient has multiple acute medical problems at this time including bilateral pulmonary embolisms, acute renal failure, sepsis with acute organ dysfunction, multiple pressure injuries to the sacral region, bilateral DVTs. Patient was discussed with Dr. Menjivar who agreed that it would be appropriate to transfer patient to ICU at this time. Transfer orders placed for ICU as well as Lasix 40 mg x 1 IV as patient is noted to be 4 L positive from admission. IV fluids were discontinued. Will obtain repeat CXR in am.
[2021-04-15] MEDS: Furosemide 40 MG/4 ML Vial IV (19:51)
[2021-04-15 21:39] LABS: HIV - WCH Non-Reactive (Nonreactive)
[2021-04-16] VITALS (35 sets, daily range): BP systolic 100–142; BP diastolic 43–90; PULSE 66–100; RESP 16–43; TEMP 36.3–37.2; O2SAT 92–100; BMI 26.4
[2021-04-16] MEDS: Acetaminophen 325 MG Tablet 650 MG PO ×4 (00:08→20:58)
[2021-04-16] MEDS: oxyCODONE 5 MG Tablet PO ×2 (01:07→05:07)
[2021-04-16 04:00] LABS: Hematocrit 23.6 % (40-54); Hemoglobin 7.7 g/dL (13.0-16.5); Mean Corp Hgb Conc 32.6 g/dL (32-36); Mean Corpuscular Hgb 25.2 pg (27.0-32.0); Mean Corpuscular Volume 77.4 fL (80-94); POSITIVE COUNT YES; POSITIVE DIFFERENTIAL YES; POSITIVE MORPHOLOGY YES; Platelet Count 307 K/mm3 (150-450); RBC Distribution Width CV 22.4 % (11.6-14.6); RBC Distribution Width SD 61.6 fl (35.1-43.9); Red Blood Count 3.05 M/mm3 (4.6-6.2); White Blood Count 24.7 K/mm3 (4.4-11.0)
[2021-04-16 04:05] LABS: Differential Indicated MANUAL DIFF
[2021-04-16 04:11] LABS: Anisocytosis 3+
[2021-04-16 04:12] LABS: Absolute Lymphocyte Count 2.72 X10^3/uL (0.83-4.51); Lymphocyte 11 % (19-41); Metamyelocyte 1 % (0-1); Monocyte 3 % (0-10); Neutrophil-Segmented 85 % (47-70); Platelet Estimate ADEQUATE (ADEQ); Red Cell Morphology NORM C+C NORMAL (NORM C&C); Total Cells Counted 100 (MANUAL DIFF)
[2021-04-16 04:23] LABS: ALB/GLOB Ratio 0.2 RATIO (0.9-2.4); AST(SGOT) 32 U/L (15-37); Alanine Aminotransfer ALT/SGPT 30 U/L (16-61); Alkaline Phosphatase 127 U/L (45-117); Anion Gap 7 (5-15); BUN 15 mg/dL (7-18); BUN/Creat Ratio 19.7 RATIO (10-20); Calcium,Total 7.1 mg/dL (8.5-10.1); Chloride 101 mmol/L (98-107); Creatinine, Serum 0.76 mg/dL (0.70-1.30); EST Glomerular Filtration Rate 111 mL/min (>60); Est Glom Filt Rate - Afr Amer 134 mL/min (>60); Estimated Creatinine Clearance 116.29 ml/min; Globulin 5.4 g/dL (2.2-4.2); Glucose 131 mg/dL (74-106); Protein, Total 6.4 g/dL (6.4-8.2); Sodium Level 136 mmol/L (136-145)
[2021-04-16] MEDS: Potassium Chloride 10mEq/100mL 10 MEQ/100 ML IV.SOLN. 100 MEQ IV BOLUS ×4 (05:05→09:14)
[2021-04-16] MEDS: Potassium Chloride Oral Tablet 20 MEQ 40 MEQ PO (05:07)
--- NOTE | 2021-04-16 05:33 | NURSING ---
0507: Pt calls out complaining of pain 09/01, medicated per APR. This RN observes pt take pill with sip of water. 0515: This nurse and charge nurse Iris observe pt on room camera sniffing and licking a piece of paper (cardstock paper left from housekeeping for room cleaning) from bedside table. Paper confiscated while pt getting CXR, white residue noted on paper. Paper bagged with pt label. Hospital security and warehouse specialist updated on same.
--- NOTE | 2021-04-16 05:55 | RAD_ITS ---
STUDY: X-RAY CHEST REASON FOR EXAM: Male, 60 years old. SOB TECHNIQUE: Single AP portable view of the chest. COMPARISON: Comparison is made with prior study dated 04/15/2021. FINDINGS: EKG electrodes are seen. Progressive right lower lobe infiltrate with blunting of the right costophrenic angle. Normal size heart. Normal mediastinum and jose r. Normal visualized pulmonary arteries. Normal visualized aortic arch and descending thoracic aorta. There are diffuse degenerative changes of the visualized thoracic spine. Normal visualized ribs, clavicles, and shoulders. There is no demonstrated abnormality of the visualized soft tissue structures of the upper abdomen. RAD/Chest 1 View (Portable) IMPRESSION: Progressive right lower lobe infiltrate and blunting of the right costophrenic angle. Electronically Signed: Jose Mccoy MD at 8:47 EST ,
--- NOTE | 2021-04-16 06:14 | PCM.PN.INT ---
Assessment & Plan Assessment/Plan (1) Sepsis: QUALIFIERS: Acute renal failure type: unspecified Sepsis acute organ dysfunction status: with acute organ dysfunction Sepsis type: sepsis due to unspecified organism Severe sepsis acute organ dysfunction type: acute renal failure Severe sepsis shock status: without septic shock Qualified Code(s): A41.9 - Sepsis, unspecified organism; R65.20 - Severe sepsis without septic shock; N17.9 - Acute kidney failure, unspecified (2) LAVELL (acute kidney injury): (3) Decubitus ulcers: QUALIFIERS: Pressure injury location: sacral region Pressure injury stage: unstageable Qualified Code(s): L89.150 - Pressure ulcer of sacral region, unstageable (4) Acute pulmonary embolism: QUALIFIERS: Acute cor pulmonale presence: without acute cor pulmonale Pulmonary embolism type: other Qualified Code(s): I26.99 - Other pulmonary embolism without acute cor pulmonale (5) Acute deep vein thrombosis (DVT): QUALIFIERS: Affected thrombotic vein of extremity: other lower extremity vein DVT location: lower extremity Laterality: bilateral Qualified Code(s): I82.493 - Acute embolism and thrombosis of other specified deep vein of lower extremity, bilateral PLAN: RECOMMENDATIONS: 1. Continue antimicrobials per ID recommendations. 2. Recommend restarting anticoagulation after surgical interventions this afternoon are completed. 3. If the patient cannot be safely started on anticoagulation, would need to consider IVC filter placement. 4. MRI foot pending. 5. Tentative plans for MORELIA this morning. 6. Discontinue p.o. pain medications. Okay to continue as needed morphine. 7. Potassium repletion. 8. Continue to monitor H&H and transfuse if hemoglobin drops below 7 g/dL. 9. Continue PPI therapy as ordered. IMPRESSIONS: 1. Sepsis secondary to MSSA bacteremia The patient has sepsis due to MSSA bacteremia with acute sepsis related organ dysfunction as evidenced by acute kidney injury. The patient has multiple potential sources for secondary hematogenous spread including possible pneumonia, soft tissue abscess and urinary tract infection. Plan to continue supportive measures including antimicrobials, per ID recommendations. The patient did undergo CT-guided drainage of his proximal thigh abscess. There are tentative plans for MORELIA today along with MRI foot to evaluate for osteomyelitis. 2. Lower extremity DVTs with bilateral pulmonary emboli and associated hypoxemia While the patient does have a smoking history and may potentially have obstructive lung disease, he also has lower extremity DVT with associated venous thromboembolic disease. Unfortunately, the patients systemic anticoagulation had to be placed on hold after he developed worsening anemia. If the patient is unable to be resumed on anticoagulation in the near future, would need to consider IVC filter placement. 3. Acute blood loss anemia secondary to gastrointestinal hemorrhage Upper endoscopy did reveal multiple bleeding duodenal ulcers which were treated by gastroenterology with epinephrine and APC. Hemoglobin is currently stable. Recommend continuing to monitor H&H and transfuse if hemoglobin drops below 7 g/dL. Continue PPI therapy as ordered. 4. Acute kidney injury Resolved. Likely prerenal in etiology and related to #1. Continue to monitor urine output. No current indication for renal replacement therapy. 5. Polysubstance abuse/recurrent falls/debility Complicates care, management, recovery and prognosis. Continue supportive measures as noted above. Recommend avoidance of p.o. pain medications given the patient's propensity to abuse the medication. This note was generated with [employer] dictation software. It may contain incorrect words, spelling, and punctuation that were not noted in checking the note before signing. Subjective Subjective The patient was seen and examined at the bedside this morning. Events from the last 24 hours have been reviewed. The patient is currently afebrile, hemodynamically stable and maintaining appropriate oxygen saturations on 2 L/min via nasal cannula. The patient underwent upper endoscopy yesterday evening which revealed evidence of esophagitis without bleeding. A total of 5 spurting cratered duodenal ulcers were also identified which were injected with epinephrine to achieve hemostasis. Post procedure, the patient was transferred to the medical intensive care unit due to tachypnea and wheezing noted on examination. Overnight, the nursing staff reported that the patient was seen pocketing his oxycodone and then was later witnessed to be sniffing a small piece of cardboard, with concern that he had crushed the aforementioned medication and then inhaled it. Orders were subsequently given to the nursing staff to discontinue the patient's p.o. pain medication regimen. This morning, the patient remains tachypneic but is otherwise hemodynamically stable. The patient did undergo CT-guided catheter placement to the purulent fluid collection in his proximal right thigh. He remains on broad-spectrum antimicrobials. Hemoglobin this morning was noted to be 7.7 g/dL. White count remains elevated at 25,000. Platelet count is normal. Potassium remains low at 3.0. The patient is scheduled for a MORELIA this morning. The patient reports the ongoing presence of low back and lower extremity pain. Objective Data Objective Data The patient's most recent lab work, culture data and imaging studies have all been personally reviewed. Blood cultures remain positive for MSSA. Vital Signs: Vital Signs Temp Pulse Resp BP Pulse Ox 97.5 F L 90 30 H 139/81 H 100 04/16/21 00:00 04/16/21 06:00 04/16/21 06:00 04/16/21 06:00 04/16/21 06:00 Oxygen Flow Rate (L/min) [5] 4 Oxygen Flow Rate (L/min) [4] 4 Oxygen Flow Rate (L/min) [3] 4 Oxygen Flow Rate (L/min) [2] 2 Oxygen Flow Rate (L/min) [1 ( 2 Initial Baseline)] Oxygen Flow Rate (L/min) 2 Oxygen Delivery Method [5] Nasal Cannula Oxygen Delivery Method [4] Nasal Cannula Oxygen Delivery Method [3] Nasal Cannula Oxygen Delivery Method [2] Nasal Cannula Oxygen Delivery Method [1 ( Nasal Cannula Initial Baseline)] Oxygen Delivery Method Nasal Cannula Weight: 88.6 kg Body Mass Index (BMI) 27.1 Intake & Output: Intake and Output for Last 24 Hours 04/14/21 04/15/21 04/16/21 23:59 23:59 23:59 Intake Total 3044.32 / 3044.32 1010 / 1010 134.17 / 134.17 Output Total 2150 / 2650 4460 / 4485 925 / 925 Balance 894.32 / 394.32 -3450 / -3475 -790.83 / -790.83 Medical Nutrition Assessment Dietitian: Malnutrition Criteria Met Start: 04/13/21 12:55 Freq: Status: Active Protocol: Document 04/14/21 09:24 [facility] (Rec: 04/14/21 09:24 [facility] [id number]) Nutrition Malnutrition Evidence of Malnutrition Exists Yes Malnutrition (severe): Chronic Evidenced By Suboptimal Energy Intake ( Severe),Weight Loss (Severe) Clinical Problem Chronic Disease or Condition Related Malnutrition Etiology Severe protein-calorie malnutrition in the context of chronic disease/injury and social circumstance related to increased energy expenditure/ inadequate oral intake, pressure injury and drug abuse Signs/Symptoms as evidenced by ~10% wt loss at time of adm x 1 month and PO meeting less than 50% estimated nutrition needs for protein and calories Status Active Problem Recommendation Dietitian Recommendations/Changes Recommend advance PO as tolerated to Regular diet. Will continue 240ml ensure clear TID w/ meals. Will conitnue Darryl BID w/ medpass for wound healing. Adjust ONS as diet advanced from clear liquids. May need to consider enteral nutrition support if PO established inadequate at meals and weight continues to decline. Lab / Micro Data Attestation: I reviewed the patient's lab results. Result Diagrams: 04/16/21 03:50 04/16/21 03:50 Labs: Laboratory Results - last 24 hr 04/12/21 13:00: Diff Path Review Reviewed 04/12/21 21:50: Crossmatch See Detail 04/13/21 05:25: Diff Path Review Reviewed 04/14/21 05:35: Diff Path Review Reviewed 04/15/21 06:00: WBC 31.4 H*, RBC 2.78 L, Hgb 6.8 L, Hct 20.6 L, MCV 74.1 L, MCH 24.5 L, MCHC 33.0, RDW Std Deviation 57.1 H, RDW Coeff of Pilo 21.7 H, Plt Count 325, MPV 8.8, Neut % (Auto) Not Reportable, Absolute Neuts (auto) 27.3 H, Absolute Lymphs (auto) 2.20, Total Counted 100, Neutrophils % (Manual) 86 H, Band Neutrophils % 1, Lymphocytes % (Manual) 7 L, Monocytes % (Manual) 2, Eosinophils % (Manual) 1, Metamyelocytes % 1, Myelocytes % 1 H, Promyelocytes % 1 H, Diff Path Review Reviewed, Platelet Estimate ADEQUATE, RBC Morphology NORM C+C, Anisocytosis 2+ 04/15/21 06:00: Sodium 131 L, Potassium 3.3 L, Chloride 100, Carbon Dioxide 26.0, Anion Gap 5, BUN 19 H, Creatinine 0.65 L, Estim Creat Clear Calc 131.94, Est GFR (MDRD) Af Amer 161, Est GFR (MDRD) Non-Af 133, BUN/Creatinine Ratio 29.1 H, Glucose 85, Calcium 6.9 L, Total Bilirubin 0.60, AST 49 H, ALT 35, Alkaline Phosphatase 147 H, Total Protein 6.0 L, Albumin 1.0 L, Globulin 5.0 H, Albumin/Globulin Ratio 0.2 L 04/15/21 18:35: Hgb 7.5 L, Hct 22.7 L 04/15/21 : HIV 1&2 Antibody Non-Reactive 04/16/21 03:50: WBC 24.7 H, RBC 3.05 L, Hgb 7.7 L, Hct 23.6 L, MCV 77.4 L, MCH 25.2 L, MCHC 32.6, RDW Std Deviation 61.6 H, RDW Coeff of Pilo 22.4 H, Plt Count 307, MPV 9.0, Neut % (Auto) Not Reportable, Absolute Neuts (auto) 21.0 H, Absolute Lymphs (auto) 2.72, Total Counted 100, Neutrophils % (Manual) 85 H, Lymphocytes % (Manual) 11 L, Monocytes % (Manual) 3, Metamyelocytes % 1, Diff Path Review June, Platelet Estimate ADEQUATE, RBC Morphology NORM C+C, Anisocytosis 3+ 04/16/21 03:50: Sodium 136, Potassium 3.0 L, Chloride 101, Carbon Dioxide 28.0, Anion Gap 7, BUN 15, Creatinine 0.76, Estim Creat Clear Calc 116.29, Est GFR (MDRD) Af Amer 134, Est GFR (MDRD) Non-Af 111, BUN/Creatinine Ratio 19.7, Glucose 131 H, Calcium 7.1 L, Total Bilirubin 0.40, AST 32, ALT 30, Alkaline Phosphatase 127 H, Total Protein 6.4, Albumin 1.0 L, Globulin 5.4 H, Albumin/Globulin Ratio 0.2 L Micro: Microbiology 04/13/21 14:00 Blood Culture (Wb) - Right Wrist Blood Culture - Preliminary Staphylococcus aureus 04/13/21 14:15 Blood Culture (Wb) - Anticubital Left Blood Culture - Preliminary Staphylococcus aureus 04/12/21 15:00 Blood Culture (Wb) - Right Hand Bacteria Detection (PCR) - Final Staphylococcus aureus 04/12/21 15:00 Blood Culture (Wb) - Right Hand Blood Culture - Final Staphylococcus aureus 04/12/21 16:18 Urine Catheter - Catheter Urine Culture - Final Staphylococcus aureus 04/12/21 17:30 Blood Culture (Wb) - Anticubital Left Blood Culture - Final Staphylococcus aureus 04/12/21 20:05 Stool Stool Occult Blood (JOSÉ MANUEL) - Final Occult Blood Positive ABG Data ABG results: ABG 04/15/21 18:28 Specimen Type ART Sample Site R Radial pH 7.48 H Bicarbonate Actual 23.8 Total CO2 25 Base Excess 0 O2 Saturation 92 L ABG pCO2 32.1 L ABG pO2 58 L Gerardo Test Positive Radiography Diagnostic Testing: Radiology Impression Abscess Drainage CT 04/15/21 13:55 IMPRESSION: 1. CT directed drainage of a fluid collection using CT image guidance and image documentation as described. 80 cc of purulent fluid was aspirated. The patient tolerated the procedure well. 2. Conscious Sedation protocol utilized with independent monitoring Electronically Signed: Jose Mccoy MD at 14:48 EST , Chest X-Ray 04/15/21 18:16 IMPRESSION: There is a right pleural effusion. Right lower lobe pneumonia. Electronically Signed: Ramesh Madrid MD at 19:07 EST , KUB X-Ray 04/15/21 18:30 IMPRESSION: No acute findings. Electronically Signed: Ramesh Madrid MD at 19:09 EST , Physical Exam Const alert Constitutional Narrative: Currently receiving an aerosol treatment General Appearance: ill appearing HEENT normocephalic and head/scalp atraumatic Teeth and Gingiva: poor dentition Eyes PERRL and EOMs intact bilaterally Neck supple General: trachea midline Resp Effort and Inspection: tachypneic Auscultation: wheezes and diminished lung sounds Cardio regular rate and regular rhythm GI normal to inspection, nondistended, normoactive bowel sounds Extremity no clubbing, cyanosis or edema Skin Skin Narrative: No significant change from previous. Wrapped lower extremities with multiple abrasions/excoriations over extremities. Neuro CN's II-XII intact bilaterally and no focal motor deficits Psych Activity / Motor Behavior: restless Mood & Affect: anxious Charges/Coding Visit Charges Inpatient E&M: 71626 Subs Hosp L3
[2021-04-16] MEDS: Ipratropium/Albuterol Sulfate 3 ML AMPUL.NEB INHALATION ×2 (06:44→18:57)
[2021-04-16] MEDS: Vancomycin IV 1,000 MG/200 ML BAG 200 MG IV (07:46)
--- NOTE | 2021-04-16 08:32 | EKG12_ITS ---
Test Reason : CHEST PAIN, PRE-OP Blood Pressure : / mmHG Vent. Rate : 096 BPM Atrial Rate : 096 BPM P-R Int : 132 ms QRS Dur : 116 ms QT Int : 378 ms P-R-T Axes : 081 066 038 degrees QTc Int : 477 ms Sinus rhythm with sinus arrhythmia with occasional Premature ventricular complexes Otherwise normal ECG When compared with ECG of 12-APR-2021 15:27, Premature ventricular complexes are now Present Confirmed by JULIUS WESTFALL, ADAMA ([id number]), school photograph editor DAILY OLIVER ([id number]) on 04/23/2021 11:25:51 AM Referred By: TUAN Confirmed By:ADMAA MADRID MD
--- NOTE | 2021-04-16 08:45 | CON.PCM.CA_ITS ---
Assessment & Plan Assessment/Plan (1) Bacteremia: PLAN: The patient has been diagnosed with bacteremia. The etiology may be multifactorial based upon his multiple sources for an infectious disease process. There has been a concern as to whether or not, based upon his history of illicit drug use and bacteremia, as to whether the patient could have infectious endocarditis. The patient has undergone further evaluation with a transthoracic echocardiogram. The report is as noted. There has been a request for consideration for further evaluation with a transesophageal echocardiogram. However, the patient has also been diagnosed with acute blood loss secondary to gastrointestinal bleeding related to an upper GI process as noted by his EGD findings requiring epinephrine therapy and heater probe therapy, etc. Based upon the [place] [employer] guidelines regarding relative/absolute contraindications to transesophageal echocardiogram, which do include diagnoses such as acute esophagitis, acute peptic ulcer disease, recent or acute upper GI bleeding process, there would appear to be relative/absolute contraindications to proceeding with such a procedure especially at [facility]. If such a procedure were performed at [facility], and the patient developed recurrent upper gastrointestinal bleeding that could not be successfully reassessed/treated by gastroenterology and endoscopy procedures then the patient would need to be urgent/emergently transferred to a tertiary care center where surgical evaluation/care would be available, etc.. Based upon the ongoing COVID-19 pandemic and challenges with respect to transferring patients to a tertiary care centers this may not be something that could be accomplished quickly. If the patient were found to have evidence of infectious endocarditis it appears he would continue medical management at this time with long-term IV antibiotics as he does not appear to be an ideal candidate for surgical based intervention based upon his multiple comorbidities involving his multiple body wounds and other sources of ongoing active infection that could compromise a valvular repair/replacement procedure. Thus he may need prolonged IV antibiotic use for multiple reasons. (2) Acute blood loss anemia: PLAN: The patient has had acute blood loss. It appears this is secondary to an upper GI bleeding process. He has required multiple PRBCs. He has required EGD with subsequent epinephrine therapy and heater probe therapy and attempt to control his upper GI bleeding process. (3) GI bleed: PLAN: The patient does have a report of a recent/active upper GI bleeding process. Again as noted above this would be a relative/absolute contraindication to proceeding with transesophageal echocardiogram at this time. (4) Elevated troponin: PLAN: The patient does have elevated troponin I levels. This may be secondary to his pulmonary embolism superimposed upon his underlying cardiovascular disease process. (5) Pulmonary embolism: PLAN: The patient was diagnosed with pulmonary embolism. If the patient is not a candidate for anticoagulation secondary to his upper gastrointestinal bleeding process then he may need to be considered for IVC filter placement. (6) CAD (coronary artery disease): PLAN: The patient does have a history of CAD as noted. At the present time he does not appear to have symptoms of acute coronary syndrome or acute electrocardiographic changes. He should continue medical management/support as best as possible noting his multiple comorbidities. (7) LAVELL (acute kidney injury): PLAN: The patient's renal function does need to be followed for significant changes that would impact his ongoing care and medical management. (8) COPD (chronic obstructive pulmonary disease): QUALIFIERS: Emphysema type: unspecified Qualified Code(s): J43.9 - Emphysema, unspecified PLAN: The patient does have underlying COPD. He will continue evaluation care per pulmonology. (9) Decubitus ulcers: QUALIFIERS: Pressure injury location: sacral region Pressure injury stage: unstageable Qualified Code(s): L89.150 - Pressure ulcer of sacral region, unstageable PLAN: The patient has multiple decubitus ulcers He is being evaluated by general surgery and plastic surgery. He is pending surgical debridement later today. (10) Chronic pain: QUALIFIERS: Chronic pain type: chronic pain syndrome Qualified Code(s): G89.4 - Chronic pain syndrome PLAN: The patient does have chronic pain. He will continue evaluation care by his other physicians and attempt to control his discomfort without narcotic use. (11) Tobacco abuse: PLAN: The patient has been counseled on the need to discontinue tobacco use. (12) Narcotic overdose: PLAN: The patient's narcotic usage is presented an issue with respect to his multiple comorbidities and the potential need for long-term IV antibiotic use. Addt'l Comments The patient's case has been discussed and reviewed with the patient, the [facility] staff, and Dr. Robertson of the [facility] critical care/pulmonary medicine staff. Thank you for allowing me to participate in the care of your patient. Please don't hesitate to call if any issues arise. This note was generated using a voice recognition system and there may be incorrect words, spelling or punctuation that were not noted when reviewing the office note prior to saving. HPI Consult Data Date of Consult: 04/16/21 HPI Narrative HPI Narrative: ROMEO DUNN, is a 60 year old white male who presents who [facility] cardiovascular consultation based upon concerns of bacteremia with concerns of sepsis and possible infectious endocarditis with concerns for additional cardiovascular procedures such as MORELIA superimposed upon the setting of anemia thought partially secondary to acute upper GI bleeding process with esophagitis and peptic ulcer disease requiring EGD with therapy with epinephrine and heater probe used for coagulation superimposed upon multiple comorbidities which include a history of CAD, COPD, active DVT/PE, renal insufficiency, electrolyte disturbance, illicit substance abuse, multiple Gens/ulcerative lesions thought related to illicit substance abuse pending further surgical debridement, who is currently in the ICU undergoing multiple specialty/subspecialty evaluation and care. The patient states that the time that he hurts all over . He notes for the most part his pain is related to his back and his lower extremities-wounds. He is not currently complaining of ongoing chest discomfort or acute shortness of breath/dyspnea. He denies a history of orthopnea, PND, near-syncope, or syncope. He apparently was living with his roommate. It appears he had poor oral intake. He was spending his most of his time either lying in bed or lying on the floor. He was subsequently brought to the hospital for debilitation. He was diagnosed with multiple issues as noted above. He has been undergoing evaluation care from internal medicine, infectious disease, gastroenterology, and critical care medicine/pulmonology. [facility] Medical History (Updated 04/16/21 @ 08:[address] Darian Leyva MD) Atherosclerotic heart disease of [place] coronary artery with other forms of angina pectoris CAD (coronary artery disease) Chest pain Chronic pain COPD (chronic obstructive pulmonary disease) Hypertension Old myocardial infarction Shortness of breath Tobacco abuse Home Medications NK 04/12/21 [History Last Taken Unknown] Allergy/AdvReac Type Severity Reaction Status Date / Time aspirin Allergy Hives Verified 04/12/21 14:55 Sulfa (Sulfonamide Allergy Hives Verified 04/12/21 14:55 Antibiotics) epinephrine AdvReac Anaphylaxis Verified 04/12/21 14:55 Bee stings Allergy Anaphylaxis Uncoded 04/12/21 14:55 Family History Father CVA (cerebral vascular accident) COPD (chronic obstructive pulmonary disease) Mother CVA (cerebral vascular accident) Surgical History no surgical history Social History household members: other details: room mate Smoking Status: Current every day smoker second hand exposure: Yes substance use type: heroin and amphetamines ROS Constitutional Constitutional: Reports as per HPI Eyes Eyes: Reports as per HPI ENT HEENT: Reports as per HPI Cardiovascular Cardiovascular: Reports as per HPI Respiratory/Chest Respiratory/Chest: Reports as per HPI Gastrointestinal Gastrointestinal: Reports as per HPI Genitourinary Genitourinary: Reports as per HPI Musculoskeletal Musculoskeletal: Reports extremity pain Integumentary Integumentary: Reports skin ulcer Neurologic Neurologic: Reports as per HPI Psychiatric Psychiatric: Reports as per HPI Physical Exam Const alert and oriented x3 Orientation / Consciousness: awake HEENT normocephalic and hearing grossly normal bilaterally Eyes PERRL and EOMs intact bilaterally Neck full ROM, supple and no JVD Resp clear to auscultation bilaterally Cardio regular rate, regular rhythm, S1 normal heart sound and S2 normal heart sound Rhythm: abnormal rhythm ectopic beats GI normal to inspection, nondistended, normoactive bowel sounds Extremity Extremity Narrative: Bilateral ankle/pedal area: Wrapped in [place] wraps Skin Skin Narrative: Multiple skin wounds Neuro oriented x3 and moves all extremities Risk Stratification Risk Stratification Applicable: Yes Age >/= 65: No >/= 3 CAD Risk Factors (HTN, HLD, DM, family hx of CAD, or current smoker): No Aspirin Use in the Past 7 Days: No Severe Angina (>/= episodes in 24 hours): No EKG ST Changes >/= 0.5mm: No Positive Cardiac Marker: Yes ELOISA Risk Stratification Score: 1 ELOISA % Risk: 5% Risk Objective Data Vital Signs: Vital Signs Temp Pulse Resp BP Pulse Ox 97.5 F L 90 24 H 131/84 H 98 04/16/21 00:00 04/16/21 07:00 04/16/21 07:00 04/16/21 07:00 04/16/21 07:00 Oxygen Flow Rate (L/min) [5] 4 Oxygen Flow Rate (L/min) [4] 4 Oxygen Flow Rate (L/min) [3] 4 Oxygen Flow Rate (L/min) [2] 2 Oxygen Flow Rate (L/min) [1 ( 2 Initial Baseline)] Oxygen Flow Rate (L/min) 2 Oxygen Delivery Method [5] Nasal Cannula Oxygen Delivery Method [4] Nasal Cannula Oxygen Delivery Method [3] Nasal Cannula Oxygen Delivery Method [2] Nasal Cannula Oxygen Delivery Method [1 ( Nasal Cannula Initial Baseline)] Oxygen Delivery Method Nasal Cannula Weight: 195 lb 5.273 oz Body Mass Index (BMI) 27.1 Intake & Output: Intake and Output for Last 24 Hours 04/14/21 04/15/21 04/16/21 23:59 23:59 23:59 Intake Total 3044.32 / 3044.32 1010 / 1010 334.17 / 334.17 Output Total 2150 / 2650 4460 / 4485 925 / 925 Balance 894.32 / 394.32 -3450 / -3475 -590.83 / -590.83 Lab / Micro Data Result Diagrams: 04/16/21 03:50 04/16/21 03:50 Labs: Laboratory Results - last 24 hr 04/12/21 13:00: Diff Path Review Reviewed 04/12/21 21:50: Crossmatch See Detail 04/13/21 05:25: Diff Path Review Reviewed 04/14/21 05:35: Diff Path Review Reviewed 04/15/21 06:00: Diff Path Review Reviewed 04/15/21 18:35: Hgb 7.5 L, Hct 22.7 L 04/15/21 : HIV 1&2 Antibody Non-Reactive 04/16/21 03:50: WBC 24.7 H, RBC 3.05 L, Hgb 7.7 L, Hct 23.6 L, MCV 77.4 L, MCH 25.2 L, MCHC 32.6, RDW Std Deviation 61.6 H, RDW Coeff of Pilo 22.4 H, Plt Count 307, MPV 9.0, Neut % (Auto) Not Reportable, Absolute Neuts (auto) 21.0 H, A bsolute Lymphs (auto) 2.72, Total Counted 100, Neutrophils % (Manual) 85 H, Lymphocytes % (Manual) 11 L, Monocytes % (Manual) 3, Metamyelocytes % 1, Diff Path Review May , Platelet Estimate ADEQUATE, RBC Morphology NORM C+C, Anisocytosis 3+ 04/16/21 03:50: Sodium 136, Potassium 3.0 L, Chloride 101, Carbon Dioxide 28.0, Anion Gap 7, BUN 15, Creatinine 0.76, Estim Creat Clear Calc 116.29, Est GFR (MDRD) Af Amer 134, Est GFR (MDRD) Non-Af 111, BUN/Creatinine Ratio 19.7, Glucose 131 H, Calcium 7.1 L, Total Bilirubin 0.40, AST 32, ALT 30, Alkaline Phosphatase 127 H, Total Protein 6.4, Albumin 1.0 L, Globulin 5.4 H, Albumin/Globulin Ratio 0.2 L 04/16/21 06:40: Vancomycin Trough 14.0 Micro: Microbiology 04/13/21 14:15 Blood Culture (Wb) - Anticubital Left Blood Culture - Final Staphylococcus aureus 04/13/21 14:00 Blood Culture (Wb) - Right Wrist Blood Culture - Final Staphylococcus aureus 04/12/21 15:00 Blood Culture (Wb) - Right Hand Bacteria Detection (PCR) - Final Staphylococcus aureus 04/12/21 15:00 Blood Culture (Wb) - Right Hand Blood Culture - Final Staphylococcus aureus ABG Data ABG results: ABG 04/15/21 18:28 Specimen Type ART Sample Site R Radial pH 7.48 H Bicarbonate Actual 23.8 Total CO2 25 Base Excess 0 O2 Saturation 92 L ABG pCO2 32.1 L ABG pO2 58 L Gerardo Test Positive Cardiology Labs/Tests 04/15/21 18:28: pH 7.48 H, Bicarbonate Actual 23.8, Base Excess 0, O2 Saturation 92 L, ABG pCO2 32.1 L, ABG pO2 58 L, Gerardo Test Positive 04/15/21 18:35: Hgb 7.5 L, Hct 22.7 L 04/16/21 03:50: WBC 24.7 H, RBC 3.05 L, Hgb 7.7 L, Hct 23.6 L, MCV 77.4 L, MCH 25.2 L, MCHC 32.6, Plt Count 307, MPV 9.0, Neut % (Auto) Not Reportable, Absolute Neuts (auto) 21.0 H, Total Counted 100, Neutrophils % (Manual) 85 H, Lymphocytes % (Manual) 11 L, Monocytes % (Manual) 3, Metamyelocytes % 1 04/16/21 03:50: Sodium 136, Potassium 3.0 L, Chloride 101, Carbon Dioxide 28.0, Anion Gap 7, BUN 15, Creatinine 0.76, Est GFR (MDRD) Af Amer 134, Est GFR (MDRD) Non-Af 111, BUN/Creatinine Ratio 19.7, Glucose 131 H, Calcium 7.1 L, Total Bilirubin 0.40 Rhythm: Sinus rhythm; sinus tachycardia; PVC EKG: Sinus rhythm/sinus arrhythmia; PVCs; nonspecific T wave abnormality ECHO: 04-12-21: Interpretation Summary The estimated ejection fraction is 65 %. No evidence for diastolic dysfunction. 03-17-2017 The study was technically difficult. Contrast injection was performed. Segmental dysfunction with preserved ejection fraction (see wall motion). The estimated ejection fraction is 60 %. Mild concentric left ventricular hypertrophy. Apical false tendon noted. Trivial mitral valve insufficiency. Trivial tricuspid valve insufficiency. Unable to estimate RV systolic pressure/pulmonary artery pressure due to technically difficult study. Transmitral doppler flow suggestive of impaired relaxation of left ventricle Stress Test: Stress Test Report Date: 03/17/2017 Procedure: Exercise tolerance test Indications: Chest pain Consent: Per the patient Procedure: The patient exercised on a Reilly protocol for 5 minutes completing Stage I and 2 minutes of Stage II achieving a peak heart rate of 137 bpm (82% predicted ma ximal heart rate) with a peak blood pressure of 210/112 mmHg and a peak MET capacity of 7 MET's. The baseline ECG demonstrated normal sinus rhythm with an inferior IN pattern of indeterminate age cannot be excluded and nonspecific T-wave change. The peak exercise ECG demonstrated no obvious ECG changes. There was a rare PVC during exercise and recovery. The functional capacity was considered average. The patient noted shortness of breath/dyspnea with exercise. The examination was discontinued secondary to shortness of breath/dyspnea. Impression: 1. Technically inadequate (percent predicted maximal heart rate less than 85%) exercise tolerance test 2. Peak exercise ECG with no obvious ECG changes 3. Rare PVC during exercise and recovery 4. Blood pressure: Normal resting blood pressure with exaggerated response Cardiac Cath: DATE OF SERVICE: 01/13/2016 INTRODUCTION: The patient is a 55-year-old man with no previously diagnosed coronary artery disease, but abnormal stress test, who presented to the hospital, was admitted and ruled in for a non-ST elevation myocardial infarction. The patient continued to complain of significant chest discomfort and abnormal cardiac troponin enzymes. Due to his continuous chest discomfort, it was felt that he should undergo a cardiac catheterization. DESCRIPTION OF PROCEDURE: After informed consent was obtained, a 5-[place] radial sheath was placed. This is because the patient had received Lovenox earlier in the day, 5-6 hours ago, but continued to have chest discomfort. It was therefore felt that they should be performed urgently. The patient was administered intra-arterial cocktail of verapamil, nitroglycerin, and heparin. A 5-[place] Sg catheter was used to negotiate and engage the left coronary ostium. Left coronary angiography performed in multiple views. Following this, the catheter was removed and a 5-[place] 3DRC was used. The right coronary ostium was not selectively engaged. After this, the catheter was removed and a pigtail catheter was inserted. A left ventriculogram was performed with 36 mL of contrast at 12 mL per second. Following this, all catheters were removed. The sheath was removed. A TR band was applied. HEMODYNAMICS: The baseline heart rate was noted to be 58 beats per minute, sinus rhythm. Aortic pressures were 105/75. Left ventricular pressure was 118/8. Post angiogram left ventricular pressure was were 130/10. Aortic pressures were 134/80. CORONARY ARTERIOGRAPHY: RIGHT CORONARY ARTERY: The right coronary artery was a dominant large vessel. There was a large conus branch and a sinoatrial branch. After this, the right coronary artery appeared to be totally occluded with numerous homo-collaterals. The right coronary artery reconstituted giving off 2 acute marginal vessels. The vessel continued distally and gave off a large posterior descending artery with no significant stenosis. A large bifurcating posterolateral vessel was also noted with no significant stenosis present. LEFT MAIN CORONARY ARTERY: The left main coronary artery was noted to be angiographically minimally diseased. It bifurcated into left anterior descending artery and left circumflex artery. LEFT ANTERIOR DESCENDING ARTERY: The left anterior descending artery was a [id number] sized vessel, gave off 2 large septal magazine hand branches and a small diagonal branch. The left anterior descending artery then continued and gave off a large diagonal branch, which did not appear to have any significant stenosis. The left anterior descending artery continued and wrapped around the apex of the left ventricle. Numerous septal perforators were noted, which were angiographically normal. LEFT CIRCUMFLEX ARTERY: The left circumflex artery was a large nondominant vessel. There was a first prominent acute marginal branch and an atrial circumflex artery branch as well as a small AV groove branch. There was a large obtuse marginal branch, which was noted were trifurcated. No significant stenosis was noted in this vessel. The AV groove branch itself continued and distally a small posterolateral branch may have been totally occluded. Distal filling of the distal right coronary artery was also noted. LEFT VENTRICULOGRAM: The left ventriculogram demonstrated evidence of an akinetic basal inferior zone. The rest of the ventricle appeared to be normokinetic. The estimated ejection fraction was 50%-55%. CONCLUSION: 1. Normal left main coronary artery. 2. Left anterior descending artery with no areas of high-grade stenosis. 3. Left circumflex artery, which appears to be codominant and large with a small distal posterolateral vessel with possible occlusion and left to right collaterals. 4. Right coronary artery, which is totally occluded with homo-collaterals from right to right and reconstituted. 5. Preserved ejection fraction with segmental wall motion abnormality noted. Based on the above angiographic findings, the patient would be treated with continued aggressive medical therapy. Michi Doan MD Radiography Diagnostic Testing: Radiology Impression Abscess Drainage CT 04/15/21 13:55 IMPRESSION: 1. CT directed drainage of a fluid collection using CT image guidance and image documentation as described. 80 cc of purulent fluid was aspirated. The patient tolerated the procedure well. 2. Conscious Sedation protocol utilized with independent monitoring Electronically Signed: Jose Mccoy MD at 14:48 EST , Chest X-Ray 04/15/21 18:16 IMPRESSION: There is a right pleural effusion. Right lower lobe pneumonia. Electronically Signed: Ramesh Madrid MD at 19:07 EST , Chest CTA: 04-12-[address] Ramesh Madrid MD on 04/12/21 at 1846 EXAM: CT ANGIOGRAPHY CHEST WITHOUT AND WITH INTRAVENOUS CONTRAST CLINICAL INDICATION: chest pain SOB X 3 WEEKS TECHNIQUE: Helically acquired angiography images were obtained of the chest without and with intravenous contrast. This CT exam was performed using one or more of the following dose reduction techniques: automated exposure control, adjustment of the mA and/or kV according to patient size, and/or use of iterative reconstruction technique. This report was created using [employer] report generation technology. MIP reconstructed images were created and reviewed. CONTRAST: IV 100mL Isovue-370 COMPARISON: 11.18. FINDINGS: PULMONARY ARTERIES: There is pulmonary embolism of the right upper lobe branch, right middle lobe branch, right lower lobe branch, left lower lobe branch, lingular branch, and left upper lobe branch. There is no saddle embolus. No heart strain. Normal in caliber. AORTA: There is atherosclerotic calcification of the aortic arch with tortuosity and elongation of the aortic arch and descending thoracic aorta. Normal in caliber. No evidence of dissection. GREAT VESSELS OF AORTIC ARCH: Unremarkable. Normal in caliber. No evidence of dissection. LUNGS AND PLEURAL SPACES: There is bilateral pneumonia. Right pleural effusion. No mass. HEART: There are calcifications of the coronary arteries. No pericardial effusion. No signs of right heart strain, ratio of right ventricle to left ventricle measures less than 1. MEDIASTINUM: Unremarkable. No mediastinal or hilar adenopathy. Esophagus is unremarkable. No hiatal hernia. THYROID: Unremarkable. No thyroid lesions. BONES/JOINTS: There are degenerative findings of the thoracic spine. No suspicious lytic or blastic abnormality. 04/12/21 1846Date cc: Dr. Pedro Pablo Dickson DO; No Primary Care Physician ~*Signed ADDENDUM by Dr. Ramesh Madrid MD on 04/12/[address]/CTA Chest W/WO Contrast IMPRESSION: 1. There is pulmonary embolism of the right upper lobe branch, right middle lobe branch, right lower lobe branch, left lower lobe branch, lingular branch, and left upper lobe branch. There is no saddle embolus. No heart strain. 2. There is bilateral pneumonia. Right pleural effusion. cf called. N.B. : The above Results were Read Back by Ramesh Madrid MD to Pedro Pablo Dickson DO, and understanding confirmed on 04/12/2021 18:46:54 (ET). Electronically Signed: Ramesh Madrid MD at 18:46 EST , 04/12/21 1853Date cc: Dr. Pedro Pablo Dickson, DO; No Primary Care Physician ~*Signed We are attempting to reach an attending provider to discuss findings. An addendum with communication details will be sent when the communication is complete. EXAM: CT ANGIOGRAPHY CHEST WITHOUT AND WITH INTRAVENOUS CONTRAST CLINICAL INDICATION: chest pain SOB X 3 WEEKS TECHNIQUE: Helically acquired angiography images were obtained of the chest without and with intravenous contrast. This CT exam was performed using one or more of the following dose reduction techniques: automated exposure control, adjustment of the mA and/or kV according to patient size, and/or use of iterative reconstruction technique. This report was created using [employer] report generation technology. MIP reconstructed images were created and reviewed. CONTRAST: IV 100mL Isovue-370 COMPARISON: 9.26.19 FINDINGS: PULMONARY ARTERIES: There is pulmonary embolism of the right upper lobe branch, right middle lobe branch, right lower lobe branch, left lower lobe branch, lingular branch, and left upper lobe branch. There is no saddle embolus. No heart strain. Normal in caliber. AORTA: There is atherosclerotic calcification of the aortic arch with tortuosity and elongation of the aortic arch and descending thoracic aorta. Normal in caliber. No evidence of dissection. GREAT VESSELS OF AORTIC ARCH: Unremarkable. Normal in caliber. No evidence of dissection. LUNGS AND PLEURAL SPACES: There is bilateral pneumonia. Right pleural effusion. No mass. HEART: There are calcifications of the coronary arteries. No pericardial effusion. No signs of right heart strain, ratio of right ventricle to left ventricle measures less than 1. MEDIASTINUM: Unremarkable. No mediastinal or hilar adenopathy. Esophagus is unremarkable. No hiatal hernia. THYROID: Unremarkable. No thyroid lesions. BONES/JOINTS: There are degenerative findings of the thoracic spine. No suspicious lytic or blastic abnormality. CT/CTA Chest W/WO Contrast IMPRESSION: 1. There is pulmonary embolism of the right upper lobe branch, right middle lobe branch, right lower lobe branch, left lower lobe branch, lingular branch, and left upper lobe branch. There is no saddle embolus. No heart strain. 2. There is bilateral pneumonia. Right pleural effusion. cf called. Electronically Signed: Ramesh Madrid MD at 18:46 EST , KUB X-Ray 04/15/21 18:30 IMPRESSION: No acute findings. Electronically Signed: Ramesh Madrid MD at 19:09 EST , EGD: Patient Name: Romeo Dunn Procedure Date: 04/15/2021 4:15 PM Date of : 1960 Age: 60 Procedure: Upper GI endoscopy Indications: Active gastrointestinal bleeding Providers: Rito Barrett DO Medicines: See the Anesthesia note for documentation of the administered medications Patient Profile: This is a 60 year old male. Refer to note in patient chart for documentation of history and physical. Patient has symptoms. Complications: No immediate complications. Procedure: Pre-Anesthesia Assessment: - Prior to the procedure, a History and Physical was performed, and patient medications and allergies were reviewed. The patient is competent. The risks and benefits of the procedure and the sedation options and risks were discussed with the patient. All questions were answered and informed consent was obtained. Patient identification and proposed procedure were verified by the physician in the pre-procedure area. Mental Status Examination: alert and oriented. Airway Examination: normal oropharyngeal airway and neck mobility. Respiratory Examination: clear to auscultation. CV Examination: normal. ASA Grade Assessment: II - A patient with mild systemic disease. After reviewing the risks and benefits, the patient was deemed in satisfactory condition to undergo the procedure. The anesthesia plan was to use moderate sedation / analgesia (conscious sedation). Immediately prior to administration of medications, the patient was re-assessed for adequacy to receive sedatives. The heart rate, respiratory rate, oxygen saturations, blood pressure, adequacy of pulmonary ventilation, and response to care were monitored throughout the procedure. The physical status of the patient was re-assessed after the procedure. After obtaining informed consent, the endoscope was passed under direct vision. Throughout the procedure, the patient's blood pressure, pulse, and oxygen saturations were monitored continuously. The Endoscope was introduced through the mouth, and advanced to the third part of duodenum. The upper GI endoscopy was accomplished without difficulty. The patient tolerated the procedure well. Moderate Sedation: Moderate (conscious) sedation was administered by the endoscopy nurse and supervised by the endoscopist. The patient's oxygen saturation, heart rate, blood pressure and response to care were monitored. Total physician intraservice time was 15 minutes. Scope In: 4:22:35 PM Scope Out: 5:11:42 PM Total Procedure Duration Time 0 hours 49 minutes 7 seconds Findings: LA Grade D (one or more mucosal breaks involving at least 75% of esophageal circumference) esophagitis with no bleeding was found 34 to 35 cm from the incisors. The entire examined stomach was normal. Five partially obstructing spurting cratered duodenal ulcers with a visible vessel were found in the duodenal bulb and in the first portion of the duodenum. The largest lesion was 12 mm in largest dimension. There is no evidence of perforation. Area was successfully injected with 10 mL of a 1:10,000 solution of epinephrine for hemostasis. Coagulation for hemostasis using heater probe was successful. Estimated blood loss was minimal. Impression: - LA Grade D esophagitis. - Normal stomach. - Multiple partially obstructing spurting duodenal ulcers with a visible vessel. There is no evidence of perforation. Injected. Treated with a heater probe. - No specimens collected. Recommendation: - Return patient to [facility] for [facility] care. - Give Protonix (pantoprazole): initiate therapy with 80 mg IV bolus, then 8 mg/hr IV by continuous infusion today. - Administer an IV bolus of 50 micrograms of octreotide followed by an infusion of 50 micrograms per hour today. - Continue present medications. Procedure Code(s): --- Professional --- 88730, Esophagogastroduodenoscopy, flexible, transoral; with control of bleeding, any method 09528, 59, Moderate sedation services provided by the same physician or other qualified health health care marketing specialist performing the diagnostic or therapeutic service that the sedation supports, requiring the presence of an independent trained observer to assist in the monitoring of the patient's level of consciousness and physiological status; initial 15 minutes of intraservice time, patient age 5 years or older CPT copyright 2017 [employer]. All rights reserved. The codes documented in this report are preliminary and upon window shade ring coverer review may be revised to meet current compliance requirements. Rito Barrett DO 04/15/2021 5:28:44 PM This report has been signed electronically. Number of Addenda: 0 Note Initiated On: 04/15/2021 4:15 PM 04/15/21 1728Date Rito Delgado Signature:Date (if indicated)
--- NOTE | 2021-04-16 08:47 | PCM.RX.CS ---
Consult Pharmacy has been consulted to manage selected antiobiotic: Vancomycin Type of Consult: Follow-up Suspected Infection: Sepsis Prior Doses of Antibiotics Received/Current Regimen: current dose is vanc 1000mg IV q12h Labs: Sodium 136 mmol/L (136-145) 04/16/21 03:50 Potassium 3.0 mmol/L (3.5-5.1) L 04/16/21 03:50 Chloride 101 mmol/L (98-107) 04/16/21 03:50 Carbon Dioxide 28.0 mmol/L (21.0-32.0) 04/16/21 03:50 Anion Gap 7 (5-15) 04/16/21 03:50 BUN 15 mg/dL (7-18) 04/16/21 03:50 Creatinine 0.76 mg/dL (0.70-1.30) 04/16/21 03:50 Est GFR (MDRD) Af Amer 134 mL/min (>60) 04/16/21 03:50 Est GFR (MDRD) Non-Af 111 mL/min (>60) 04/16/21 03:50 BUN/Creatinine Ratio 19.7 RATIO (10-20) 04/16/21 03:50 Glucose 131 mg/dL (74-106) H 04/16/21 03:50 Vancomycin Trough 14.0 ug/mL (5.0-15.0) 04/16/21 06:40 Microbiology: Microbiology 04/13/21 14:15 Blood Culture (Wb) - Anticubital Left Blood Culture - Final Staphylococcus aureus 04/13/21 14:00 Blood Culture (Wb) - Right Wrist Blood Culture - Final Staphylococcus aureus 04/12/21 15:00 Blood Culture (Wb) - Right Hand Bacteria Detection (PCR) - Final Staphylococcus aureus 04/12/21 15:00 Blood Culture (Wb) - Right Hand Blood Culture - Final Staphylococcus aureus 04/12/21 16:18 Urine Catheter - Catheter Urine Culture - Final Staphylococcus aureus 04/12/21 17:30 Blood Culture (Wb) - Anticubital Left Blood Culture - Final Staphylococcus aureus 04/12/21 20:05 Stool Stool Occult Blood (JOSÉ MANUEL) - Final Occult Blood Positive Weight used for dosin.6 kg Estimated Creatinine Clearance: 116 ml/min Goal Trough: 15-20 mcg/mL Pharmacy Plan for Drug Dosing: The vanc trough drawn at 06:40 today (approx 11 hours after the previous dose) was 14.0. This is below goal range and has dropped since the last trough so will increase next dose to 1250mg IV q12h. This morning's dose of 1000mg has already been hung so will start the 1250mg earlier at 18:00 tonight. Will repeat a trough level before the 4th new dose. Pharmacy Service will continue to monitor and adjust dosing as required. Follow-Up Labs: Trough Vancomycin Labs to be done on [date and time ordered]: 04/18/21 05:30
[2021-04-16] MEDS: Lidocaine 5% Patch 1 PATCH TOPICAL (09:14)
--- NOTE | 2021-04-16 10:08 | MRI_ITS ---
We are attempting to reach an attending provider to discuss findings. An addendum with communication details will be sent when the communication is complete. STUDY: MRI LUMBAR SPINE WITH AND WITHOUT CONTRAST REASON FOR EXAM: Male, 60 years old. Suspected epidural abscess TECHNIQUE: Standardized fat and water weighted pulse sequences were obtained in the sagittal and axial planes. IV 18ml Dotarem was administered for the contrast portion of the examination. COMPARISON: June 15, 2013. FINDINGS: T12-L1: Normal endplates. Normal disc height, hydration and morphology. Normal bilateral facet joints. Normal central canal and bilateral lateral recesses. Normal bilateral intervertebral neural foramina. Normal lumbar lordosis. There is no substantial scoliosis. Normal conus medullaris that terminates at the L1 level L1-2: Disc bulge and mild spurring. Mild spurring of the bilateral facet joints. Normal central canal and bilateral lateral recesses. Normal bilateral intervertebral neural foramina. L2-3: Disc bulge and mild spurring. Spurring of the bilateral facet joints. Normal central canal and bilateral lateral recesses. Normal bilateral intervertebral neural foramina. L3-4: Disc bulge and spurring to the right. Facet spurring. No canal stenosis. Left foraminal narrowing. L4-5: Disc bulge and spurring with right paracentral/foraminal disc protrusion. Facet and ligamentum flavum hypertrophy. Moderate canal stenosis. Right greater than left foraminal narrowing L5-S1: Disc bulge and spurring. Facet spurring. Normal visualized sacral ala. There is 6.7 x 3.4 cm lobular septated nonenhancing fluid collection in the left retroperitoneal paraspinal musculature and narrowing the left L3 neural foramen, series 5 images 01/17 through . There is 1.1 x 1.0 cm nonenhancing fluid collection displacing sacral thecal sac to the left, series 5 image 03/19 There is no demonstrated abnormal enhancement. MRI/Spine Lumbar W/WO Contrast IMPRESSION: Multilevel degenerative changes, as described above. Epidural fluid collection at the upper sacrum with possible abscess. Left paraspinal fluid collection with abscess versus hematoma. Electronically Signed: Destin Giordano MD at 13:29 EST Reading Location ID and State: [facility] / [place] , Service support ,
--- NOTE | 2021-04-16 10:17 | CON.PCM_ITS ---
Assessment & Plan Assessment/Plan (1) Pressure injury of sacral region, unstageable: (2) Pressure injury of right ischium, unstageable: (3) Skin necrosis: (4) History of illicit drug use: (5) Smoker: PLAN: Patient has severe pressure injuries to his sacrum and right ischial areas. Will obtain a specialty bed from [facility] such as a low air loss bed. I suspect these necrotic pressure sore extend through the muscle to the bone. Depending on what is found at surgery, the resultant wounds may be massive. Sometimes if there is no available muscle flap, then either a complex skin or fasciocutaneous flap may be needed. Patient was started on Vancomycin and Zosyn. Anticipate increased metabolic demands from the infection. Encourage nutritional supplementation with protein to help the healing process. He was scheduled for surgery today with excision of these two necrotic pressure sores. Postoperatively will place the VAC. I anticipate these pressure sores to be quite large after surgery. Depending on how well the wounds are kept clean, a diverting colostomy can be placed on hold. He will have it reordered at the appropriate time. Patient was informed of the risks and complications of the procedure including alternatives to surgery. These were discussed with the patient personally. Patient voices understanding and wishes to proceed. Tissue that is removed both soft tissue and bone will each be sent to Pathology for analysis to rule out carcinoma and to check for osteomyelitis. Also postoperatively will order a CT Pelvis especially if his temperature increases. Patient is now having severe back pain. MRI showed a fluid collection most probably an epidural abscess. That certainly takes precedence over what I am doing. The pressure sores can wait until the patient is medically stable. If necessary I can unroof the necrotic pressure sores into the subcutaneous tissue at the bedside. Generally that makes the wound care easier. Right now the patient has several medical co-morbidities that need to be stabilized before Anesthesia thinks the patient is too unstable to be done here, at which time a transfer was made to [facility]. Encouraged patient to stop smoking as it may have deleterious effects on wound healing. We discussed the current risks associated with COVID-19. While it is understood that there is a community spread of COVID-19, the risk of santiago COVID-[address] [facility] ([facility]) is very low; however, the risk cannot be completely mitigated because of the community spread of the disease. We discussed in detail the risk of exposure to and/or potential harm posed by the COVID-19 virus with having a surgery/procedure at this time versus the risk of delaying the surgery/procedure. It is not possible to know either the risk of delaying the surgery or procedure or chance of getting an infection with perfect accuracy, but a joint decision was made to proceed at this time with the scheduled surgery/procedure as indicated on the consent form. Patient was notified that we will need to comply with any screening or testing [facility] wishes to perform or that surgery may be delayed for any positive results. Procedure Criteria Procedure Type:?Elective COVID Risk Discussion: The surgeon/proceduralist and patient have discussed in detail the risk of exposure to and/or potential harm posed by the COVID-19 virus with having a surgery/procedure at this time versus the risk of delaying the surgery/procedure.? It is not possible to know either the risk of delaying the surgery or procedure or chance of getting an infection with perfect accuracy, but a joint decision was made between the patient and the surgeon/proceduralist to proceed at this time with the scheduled surgery/procedure as indicated on the consent form. HPI Consult Data Date of Consult: 04/16/21 Attending Care Provider: Dr. Leticia Kim MD HPI Narrative Reason for Consultation: necrotic sacral and right ischial pressure sores. HPI Narrative: ROMEO DOVRE, is a 60 M who presents with necrotic pressure sores involving the sacrum and the right ischial pressure sores. Patient is a 60-year-old male with past medical history of CAD status post AK, hypertension, COPD/asthma overlap syndrome, chronic smoker, chronic back pain who comes in with complaints of generalized weakness, inability to walk, recurrent falls, chest pain ongoing for 3 weeks. Patient is a poor historian; appeared relatively lethargic and unwell. He stated that he lives with his roommate. He fell down 3 weeks ago and laid on the floor for couple of days. His roommate tried to help him to his bed. He has been falling. She however got irritated that she has to keep her per him up to bed. She has been giving him food and drink sometimes. He mostly has been lying on the floor or in bed. He admits to chest pain and progressive shortness of breath. He denied any fever or chills or diarrhea. He admits to some nausea. He denies any melena stools or hematochezia. He admits to occasional cough, productive of dark brown sputum. Patient admits to using illicit drugs - methamphetamines and heroin. He also smokes about 3 packs a day. From his history by falling and staying down for several hours, he developed necrotic sacral and right ischial pressure sores. I was asked to evaluate this patient for surgical options for treatment. [facility] Medical History Abdominal pain in male Acute blood loss anemia Acute pulmonary embolism LAVELL (acute kidney injury) Anemia Atherosclerotic heart disease of [place] coronary artery with other forms of angina pectoris Bacteremia CAD (coronary artery disease) Chest pain Chronic pain COPD (chronic obstructive pulmonary disease) Decubitus ulcers GI bleed History of illicit drug use Hypertension Narcotic overdose Old myocardial infarction Pain in right leg Pneumonia Pressure injury of right ischium, unstageable Pressure injury of sacral region, unstageable Pulmonary embolism Sepsis Shortness of breath Smoker Tobacco abuse Home Medications NK 04/12/21 [History Last Taken Unknown] Allergy/AdvReac Type Severity Reaction Status Date / Time aspirin Allergy Hives Verified 04/12/21 14:55 Sulfa (Sulfonamide Allergy Hives Verified 04/12/21 14:55 Antibiotics) epinephrine AdvReac Anaphylaxis Verified 04/12/21 14:55 Bee stings Allergy Anaphylaxis Uncoded 04/12/21 14:55 Family History Father CVA (cerebral vascular accident) COPD (chronic obstructive pulmonary disease) Mother CVA (cerebral vascular accident) Surgical History no surgical history Social History household members: other details: room mate Smoking Status: Current every day smoker second hand exposure: Yes substance use type: heroin and amphetamines ROS ROS Renato DOVER, is a 60 M who presents with above. Patient is a 60-year-old male with past medical history of CAD status post AK, hypertension, COPD/asthma overlap syndrome, chronic smoker, chronic back pain who comes in with complaints of generalized weakness, inability to walk, recurrent falls, chest pain ongoing for 3 weeks. Patient is a poor historian; appeared relatively lethargic and unwell. He stated that he lives with his roommate. He fell down 3 weeks ago and laid on the floor for couple of days. His roommate tried to help him to his bed. He has been falling. She however got irritated that she has to keep her per him up to bed. She has been giving him food and drink sometimes. He mostly has been lying on the floor or in bed. He admits to chest pain and progressive shortness of breath. He denied any fever or chills or diarrhea. He admits to some nausea. He denies any melena stools or hematochezia. He admits to occasional cough, productive of dark brown sputum. Patient admits to using illicit drugs - methamphetamines and heroin. He also smokes about 3 packs a day. Physical Exam Narrative General: Alert, Oriented x3, Cooperative, appears chronically unwell, unkempt, looks older than age, on 2 L of oxygen HEENT: PERRL. EOMI. Oral: Dry mucosa Neck: Supple, nontender. No cervical adenopathy. Lungs: Diminished to auscultation. Cardiovascular: regular, no murmurs Abdomen: Soft, Nondistended. Extremities: Bilateral leg edema +3 Skin: Sacral pressure sore with overlying necrosis. There is an odor present. Measures 6 x 8 cm. There is a right ischial pressure sore with overlying necrosis. There is an o pepper present. Measures 6 x 6 cm. These pressure sores are unstageable at present because of the presence of necrosis. Clinically these necrotic pressure sores will erode to the bone making it a Stage IV pressure sore. Neurological: Grossly intact Psych/Mental Status: Appropriate Medical Records Data Medical Nutrition Assessment Dietitian: Malnutrition Criteria Met Start: 04/13/21 12:55 Freq: Status: Active Protocol: Document 04/14/21 09:24 [facility] (Rec: 04/14/21 09:24 [facility] [id number]) Nutrition Malnutrition Evidence of Malnutrition Exists Yes Malnutrition (severe): Chronic Evidenced By Suboptimal Energy Intake ( Severe),Weight Loss (Severe) Clinical Problem Chronic Disease or Condition Related Malnutrition Etiology Severe protein-calorie malnutrition in the context of chronic disease/injury and social circumstance related to increased energy expenditure/ inadequate oral intake, pressure injury and drug abuse Signs/Symptoms as evidenced by ~10% wt loss at time of adm x 1 month and PO meeting less than 50% estimated nutrition needs for protein and calories Status Active Problem Recommendation Dietitian Recommendations/Changes Recommend advance PO as tolerated to Regular diet. Will continue 240ml ensure clear TID w/ meals. Will conitnue Darryl BID w/ medpass for wound healing. Adjust ONS as diet advanced from clear liquids. May need to consider enteral nutrition support if PO established inadequate at meals and weight continues to decline. Lab / Micro Data Attestation: I reviewed the patient's lab results. Lab results narrative: * Result Diagrams: 04/16/21 03:50 04/16/21 03:50 Labs: Laboratory Results - last 24 hr 04/12/21 13:00: Diff Path Review Reviewed 04/12/21 21:50: Crossmatch See Detail 04/13/21 05:25: Diff Path Review Reviewed 04/14/21 05:35: Diff Path Review Reviewed 04/15/21 06:00: Diff Path Review Reviewed 04/15/21 18:35: Hgb 7.5 L, Hct 22.7 L 04/15/21 : HIV 1&2 Antibody Non-Reactive 04/16/21 03:50: WBC 24.7 H, RBC 3.05 L, Hgb 7.7 L, Hct 23.6 L, MCV 77.4 L, MCH 25.2 L, MCHC 32.6, RDW Std Deviation 61.6 H, RDW Coeff of Pilo 22.4 H, Plt Count 307, MPV 9.0, Neut % (Auto) Not Reportable, Absolute Neuts (auto) 21.0 H, Absolute Lymphs (auto) 2.72, Total Counted 100, Neutrophils % (Manual) 85 H, Lymphocytes % (Manual) 11 L, Monocytes % (Manual) 3, Metamyelocytes % 1, Diff Path Review May foll, Platelet Estimate ADEQUATE, RBC Morphology NORM C+C, Anisocytosis 3+ 04/16/21 03:50: Sodium 136, Potassium 3.0 L, Chloride 101, Carbon Dioxide 28.0, Anion Gap 7, BUN 15, Creatinine 0.76, Estim Creat Clear Calc 116.29, Est GFR (MDRD) Af Amer 134, Est GFR (MDRD) Non-Af 111, BUN/Creatinine Ratio 19.7, Glucose 131 H, Calcium 7.1 L, Total Bilirubin 0.40, AST 32, ALT 30, Alkaline Phosphatase 127 H, Total Protein 6.4, Albumin 1.0 L, Globulin 5.4 H, Albumin/Globulin Ratio 0.2 L 04/16/21 06:40: Vancomycin Trough 14.0 Micro: Microbiology 04/15/21 14:15 Abs - Other Gram Stain - Final 04/15/21 14:15 Abs - Other Wound Culture - Preliminary Staphylococcus aureus 04/13/21 14:15 Blood Culture (Wb) - Anticubital Left Blood Culture - Final Staphylococcus aureus 04/13/21 14:00 Blood Culture (Wb) - Right Wrist Blood Culture - Final Staphylococcus aureus 04/12/21 15:00 Blood Culture (Wb) - Right Hand Bacteria Detection (PCR) - Final Staphylococcus aureus 04/12/21 15:00 Blood Culture (Wb) - Right Hand Blood Culture - Final Staphylococcus aureus ABG Data ABG results: ABG 04/15/21 18:28 Specimen Type ART Sample Site R Radial pH 7.48 H Bicarbonate Actual 23.8 Total CO2 25 Base Excess 0 O2 Saturation 92 L ABG pCO2 32.1 L ABG pO2 58 L Gerardo Test Positive Radiology Impression Abscess Drainage CT 04/15/21 13:55 IMPRESSION: 1. CT directed drainage of a fluid collection using CT image guidance and image documentation as described. 80 cc of purulent fluid was aspirated. The patient tolerated the procedure well. 2. Conscious Sedation protocol utilized with independent monitoring Electronically Signed: Jose Mccoy MD at 14:48 EST , Chest X-Ray 04/15/21 18:16 IMPRESSION: There is a right pleural effusion. Right lower lobe pneumonia. Electronically Signed: Ramesh Madrid MD at 19:07 EST , KUB X-Ray 04/15/21 18:30 IMPRESSION: No acute findings. Electronically Signed: Ramesh Madrid MD at 19:09 EST , Chest X-Ray 04/16/21 05:55 IMPRESSION: Progressive right lower lobe infiltrate and blunting of the right costophrenic angle. Electronically Signed: Jose Mccoy MD at 8:47 EST Reading Location ID and State: [address] [place] [address] , Service support , Charges/Coding Visit Charges Inpatient E&M: 48273 Init Hosp L2 (ICD-10 - L89.150, L89.310, I96, Z87.898, F17.200)
--- NOTE | 2021-04-16 10:17 | WOUNDNOTE ---
Dr Reese had been in to flush the drain from the right thigh abscess. dressing remains intact. Dr Starr also in to talk with patient about surgery this afternoon. plan is for surgical debridement of the sacral and right ischial wounds possible partial ostectomy. This nurse changed dressings to bilateral heels. Dr Cheng in at that time as well. pt tolerated the heel dressing changes well.
--- NOTE | 2021-04-16 10:24 | PCM.CONS.GEN ---
Assessment & Plan Assessment/Plan (1) MSSA bacteremia: PLAN: Bilateral PEs and DVTs. H/o ivdu. HIV neg, hep panel pending. On vanc/zosyn, persistently (+) bcxs. TTE showed no veg, not candidate for MORELIA at time due to esophagitis and bleeding ulcers seen on EGD. Multiple skin wounds, largest over sacrum, smaller over bilateral heels. OR planned by plastic surgery for sacral wound. High concern for epidural abscess and spine osteo/discitis given his severe lumbar pain and BLE weakness (L worse than R). Will order stat MRI L-spine with contrast. Recommend delaying OR. Spoke with Dr. Robertson and radiology to see how this scan can be expedited. Would consider spine surgery eval while MRI is pending. Will follow, thank you. Unvaccinated for covid, he is open to getting dose here. (2) Abscess of muscle of thigh: (3) GI bleed: (4) Acute pulmonary embolism: QUALIFIERS: Pulmonary embolism type: other Acute cor pulmonale presence: without acute cor pulmonale Qualified Code(s): I26.99 - Other pulmonary embolism without acute cor pulmonale (5) Acute deep vein thrombosis (DVT): QUALIFIERS: DVT location: lower extremity Affected thrombotic vein of extremity: other lower extremity vein Laterality: bilateral Qualified Code(s): I82.493 - Acute embolism and thrombosis of other specified deep vein of lower extremity, bilateral HPI Consult Data Date of Consult: 04/16/21 HPI Narrative HPI Narrative: ROMEO DOVER, is a 60 M who presented to ED 04/12 with 3 weeks of weakness, inability to walk, chest pain. Reports IV heroin use, does not share needles or lick his needles. Injects into arms. Has not previously been tested for hiv or hepatitis. Also smokes meth. Has not had covid vaccine. Some dyspnea, no fever or chills. Came to ED, admitted on vanc/zosyn. Found to have bilat PEs, DVT. Bcx with mssa. TTE done. Had CT guided drain placed 04/15 for R adductor abscess, 80mls drainaged in IR. Multiple wounds, seen by plastic surgery, OR debridement planned for today. C/o severe lumbar pain, inability to move feet as well as lack of feeling. Full ROS performed and neg except as noted above. [facility] Medical History Atherosclerotic heart disease of [place] coronary artery with other forms of angina pectoris CAD (coronary artery disease) Chest pain Chronic pain COPD (chronic obstructive pulmonary disease) Hypertension Old myocardial infarction Shortness of breath Tobacco abuse Home Medications NK 04/12/21 [History Last Taken Unknown] Allergy/AdvReac Type Severity Reaction Status Date / Time aspirin Allergy Hives Verified 04/12/21 14:55 Sulfa (Sulfonamide Allergy Hives Verified 04/12/21 14:55 Antibiotics) epinephrine AdvReac Anaphylaxis Verified 04/12/21 14:55 Bee stings Allergy Anaphylaxis Uncoded 04/12/21 14:55 Family History Father CVA (cerebral vascular accident) COPD (chronic obstructive pulmonary disease) Mother CVA (cerebral vascular accident) Surgical History no surgical history Social History household members: other details: room mate Smoking Status: Current every day smoker second hand exposure: Yes substance use type: heroin and amphetamines Physical Exam Const alert Constitutional Narrative: ill appearing, in pain General Appearance: cooperative HEENT normocephalic Eyes PERRL and EOMs intact bilaterally Neck supple and No nodes Lymph Lymphatic: no lymphadenopathy noted Resp Auscultation: wheezes and diminished lung sounds Cardio regular rate and regular rhythm GI soft to palpation, non-tender and non-distended Extremity no clubbing, cyanosis or edema Extremity Narrative: Some R shoulder pain, but not on ROM, minimal swelling. Severe pain in lumbar palpation. Skin Skin Narrative: multiple shallow wounds. Dry eschar on R heel, smaller lesion on L heel. Drain in R posterior thigh. No splinter hemorrhages or janeway/osler on hands or feet; toes with onychomychosis. Neuro Neuro Narrative: Unable to move R 1st toe. Limited R ankle movement. Limited L 1st toe movement. Medical Records Data Medical Nutrition Assessment Dietitian: Malnutrition Criteria Met Start: 04/13/21 12:55 Freq: Status: Active Protocol: Document 04/14/21 09:24 [facility] (Rec: 04/14/21 09:24 [facility] [id number]) Nutrition Malnutrition Evidence of Malnutrition Exists Yes Malnutrition (severe): Chronic Evidenced By Suboptimal Energy Intake ( Severe),Weight Loss (Severe) Clinical Problem Chronic Disease or Condition Related Malnutrition Etiology Severe protein-calorie malnutrition in the context of chronic disease/injury and social circumstance related to increased energy expenditure/ inadequate oral intake, pressure injury and drug abuse Signs/Symptoms as evidenced by ~10% wt loss at time of adm x 1 month and PO meeting less than 50% estimated nutrition needs for protein and calories Status Active Problem Recommendation Dietitian Recommendations/Changes Recommend advance PO as tolerated to Regular diet. Will continue 240ml ensure clear TID w/ meals. Will conitnue Darryl BID w/ medpass for wound healing. Adjust ONS as diet advanced from clear liquids. May need to consider enteral nutrition support if PO established inadequate at meals and weight continues to decline. Lab / Micro Data Result Diagrams: 04/16/21 03:50 04/16/21 03:50 Labs: Laboratory Results - last 24 hr 04/12/21 13:00: Diff Path Review Reviewed 04/12/21 21:50: Crossmatch See Detail 04/13/21 05:25: Diff Path Review Reviewed 04/14/21 05:35: Diff Path Review Reviewed 04/15/21 06:00: Diff Path Review Reviewed 04/15/21 18:35: Hgb 7.5 L, Hct 22.7 L 04/15/21 : HIV 1&2 Antibody Non-Reactive 04/16/21 03:50: WBC 24.7 H, RBC 3.05 L, Hgb 7.7 L, Hct 23.6 L, MCV 77.4 L, MCH 25.2 L, MCHC 32.6, RDW Std Deviation 61.6 H, RDW Coeff of Pilo 22.4 H, Plt Count 307, MPV 9.0, Neut % (Auto) Not Reportable, Absolute Neuts (auto) 21.0 H, Absolute Lymphs (auto) 2.72, Total Counted 100, Neutrophils % (Manual) 85 H, Lymphocytes % (Manual) 11 L, Monocytes % (Manual) 3, Metamyelocytes % 1, Diff Path Review May foll, Platelet Estimate ADEQUATE, RBC Morphology NORM C+C, Anisocytosis 3+ 04/16/21 03:50: Sodium 136, Potassium 3.0 L, Chloride 101, Carbon Dioxide 28.0, Anion Gap 7, BUN 15, Creatinine 0.76, Estim Creat Clear Calc 116.29, Est GFR (MDRD) Af Amer 134, Est GFR (MDRD) Non-Af 111, BUN/Creatinine Ratio 19.7, Glucose 131 H, Calcium 7.1 L, Total Bilirubin 0.40, AST 32, ALT 30, Alkaline Phosphatase 127 H, Total Protein 6.4, Albumin 1.0 L, Globulin 5.4 H, Albumin/Globulin Ratio 0.2 L 04/16/21 06:40: Vancomycin Trough 14.0 Micro: Microbiology 04/15/21 14:15 Abs - Other Gram Stain - Final 04/15/21 14:15 Abs - Other Wound Culture - Preliminary Staphylococcus aureus 04/13/21 14:15 Blood Culture (Wb) - Anticubital Left Blood Culture - Final Staphylococcus aureus 04/13/21 14:00 Blood Culture (Wb) - Right Wrist Blood Culture - Final Staphylococcus aureus 04/12/21 15:00 Blood Culture (Wb) - Right Hand Bacteria Detection (PCR) - Final Staphylococcus aureus 04/12/21 15:00 Blood Culture (Wb) - Right Hand Blood Culture - Final Staphylococcus aureus ABG Data ABG results: ABG 04/15/21 18:28 Specimen Type ART Sample Site R Radial pH 7.48 H Bicarbonate Actual 23.8 Total CO2 25 Base Excess 0 O2 Saturation 92 L ABG pCO2 32.1 L ABG pO2 58 L Gerardo Test Positive Radiology Impression Abscess Drainage CT 04/15/21 13:55 IMPRESSION: 1. CT directed drainage of a fluid collection using CT image guidance and image documentation as described. 80 cc of purulent fluid was aspirated. The patient tolerated the procedure well. 2. Conscious Sedation protocol utilized with independent monitoring Electronically Signed: Jose Mccoy MD at 14:48 EST , Chest X-Ray 04/15/21 18:16 IMPRESSION: There is a right pleural effusion. Right lower lobe pneumonia. Electronically Signed: Ramesh Madrid MD at 19:07 EST , KUB X-Ray 04/15/21 18:30 IMPRESSION: No acute findings. Electronically Signed: Ramesh Madrid MD at 19:09 EST , Chest X-Ray 04/16/21 05:55 IMPRESSION: Progressive right lower lobe infiltrate and blunting of the right costophrenic angle. Electronically Signed: Jose Mccoy MD at 8:47 EST ,
--- NOTE | 2021-04-16 12:25 | PN.SURG_ITS ---
Subjective Subjective Patient was seen and examined during AM rounds. He still reports feeling poorly and states that he hurts all over. He asked to have his oxycodone reinstated admits to snorting at the last time it was prescribed. He denies any improvement in his lower extremity discomfort or mobility and does state there is some pain associated with his new drain in his right lower extremity. He has some persistent abdominal pain, but states that this is improved. Objective Data Objective Data Vital Signs: Vital Signs Temp Pulse Resp BP Pulse Ox 98.9 F 93 28 H 128/82 H 93 04/16/21 08:00 04/16/21 12:13 04/16/21 12:13 04/16/21 12:13 04/16/21 12:13 Oxygen Flow Rate (L/min) [5] 4 Oxygen Flow Rate (L/min) [4] 4 Oxygen Flow Rate (L/min) [3] 4 Oxygen Flow Rate (L/min) [2] 2 Oxygen Flow Rate (L/min) [1 ( 2 Initial Baseline)] Oxygen Flow Rate (L/min) 2 Oxygen Delivery Method [5] Nasal Cannula Oxygen Delivery Method [4] Nasal Cannula Oxygen Delivery Method [3] Nasal Cannula Oxygen Delivery Method [2] Nasal Cannula Oxygen Delivery Method [1 ( Nasal Cannula Initial Baseline)] Oxygen Delivery Method Room Air Weight: 195 lb 5.273 oz Body Mass Index (BMI) 26.4 Intake & Output: Intake and Output for Last 24 Hours 04/14/21 04/15/21 04/16/21 23:59 23:59 23:59 Intake Total 3044.32 / 3044.32 1010 / 1010 734.17 / 734.17 Output Total 2150 / 2650 4460 / 4485 925 / 925 Balance 894.32 / 394.32 -3450 / -3475 -190.83 / -190.83 Medical Nutrition Assessment Dietitian: Malnutrition Criteria Met Start: 04/13/21 12:55 Freq: Status: Active Protocol: Document 04/14/21 09:24 [facility] (Rec: 04/14/21 09:24 [facility] [id number]) Nutrition Malnutrition Evidence of Malnutrition Exists Yes Malnutrition (severe): Chronic Evidenced By Suboptimal Energy Intake ( Severe),Weight Loss (Severe) Clinical Problem Chronic Disease or Condition Related Malnutrition Etiology Severe protein-calorie malnutrition in the context of chronic disease/injury and social circumstance related to increased energy expenditure/ inadequate oral intake, pressure injury and drug abuse Signs/Symptoms as evidenced by ~10% wt loss at time of adm x 1 month and PO meeting less than 50% estimated nutrition needs for protein and calories Status Active Problem Recommendation Dietitian Recommendations/Changes Recommend advance PO as tolerated to Regular diet. Will continue 240ml ensure clear TID w/ meals. Will conitnue Darryl BID w/ medpass for wound healing. Adjust ONS as diet advanced from clear liquids. May need to consider enteral nutrition support if PO established inadequate at meals and weight continues to decline. Lab / Micro Data Result Diagrams: 04/16/21 03:50 04/16/21 03:50 Labs: Laboratory Results - last 24 hr 04/12/21 13:00: Diff Path Review Reviewed 04/12/21 21:50: Crossmatch See Detail 04/13/21 05:25: Diff Path Review Reviewed 04/14/21 05:35: Diff Path Review Reviewed 04/15/21 06:00: Diff Path Review Reviewed 04/15/21 18:35: Hgb 7.5 L, Hct 22.7 L 04/15/21 : HIV 1&2 Antibody Non-Reactive 04/16/21 03:50: WBC 24.7 H, RBC 3.05 L, Hgb 7.7 L, Hct 23.6 L, MCV 77.4 L, MCH 25.2 L, MCHC 32.6, RDW Std Deviation 61.6 H, RDW Coeff of Pilo 22.4 H, Plt Count 307, MPV 9.0, Neut % (Auto) Not Reportable, Absolute Neuts (auto) 21.0 H, Absolute Lymphs (auto) 2.72, Total Counted 100, Neutrophils % (Manual) 85 H, Lymphocytes % (Manual) 11 L, Monocytes % (Manual) 3, Metamyelocytes % 1, Diff Path Review May foll, Platelet Estimate ADEQUATE, RBC Morphology NORM C+C, Anisocytosis 3+ 04/16/21 03:50: Sodium 136, Potassium 3.0 L, Chloride 101, Carbon Dioxide 28.0, Anion Gap 7, BUN 15, Creatinine 0.76, Estim Creat Clear Calc 116.29, Est GFR (MDRD) Af Amer 134, Est GFR (MDRD) Non-Af 111, BUN/Creatinine Ratio 19.7, Glucose 131 H, Calcium 7.1 L, Total Bilirubin 0.40, AST 32, ALT 30, Alkaline Phosphatase 127 H, Total Protein 6.4, Albumin 1.0 L, Globulin 5.4 H, Albumin/Globulin Ratio 0.2 L 04/16/21 06:40: Vancomycin Trough 14.0 Micro: Microbiology 04/15/21 14:15 Abs - Other Gram Stain - Final 04/15/21 14:15 Abs - Other Wound Culture - Preliminary Staphylococcus aureus 04/13/21 14:15 Blood Culture (Wb) - Anticubital Left Blood Culture - Final Staphylococcus aureus 04/13/21 14:00 Blood Culture (Wb) - Right Wrist Blood Culture - Final Staphylococcus aureus 04/12/21 15:00 Blood Culture (Wb) - Right Hand Bacteria Detection (PCR) - Final Staphylococcus aureus 04/12/21 15:00 Blood Culture (Wb) - Right Hand Blood Culture - Final Staphylococcus aureus 04/12/21 16:18 Urine Catheter - Catheter Urine Culture - Final Staphylococcus aureus 04/12/21 17:30 Blood Culture (Wb) - Anticubital Left Blood Culture - Final Staphylococcus aureus 04/12/21 20:05 Stool Stool Occult Blood (JOSÉ MANUEL) - Final Occult Blood Positive ABG Data ABG results: ABG 04/15/21 18:28 Specimen Type ART Sample Site R Radial pH 7.48 H Bicarbonate Actual 23.8 Total CO2 25 Base Excess 0 O2 Saturation 92 L ABG pCO2 32.1 L ABG pO2 58 L Gerardo Test Positive Radiography Diagnostic Testing: Radiology Impression Abscess Drainage CT 04/15/21 13:55 IMPRESSION: 1. CT directed drainage of a fluid collection using CT image guidance and image documentation as described. 80 cc of purulent fluid was aspirated. The patient tolerated the procedure well. 2. Conscious Sedation protocol utilized with independent monitoring Electronically Signed: Jose Mccoy MD at 14:48 EST , Chest X-Ray 04/15/21 18:16 IMPRESSION: There is a right pleural effusion. Right lower lobe pneumonia. Electronically Signed: Ramesh Madrid MD at 19:07 EST , KUB X-Ray 04/15/21 18:30 IMPRESSION: No acute findings. Electronically Signed: Ramesh Madrid MD at 19:09 EST , Chest X-Ray 04/16/21 05:55 IMPRESSION: Progressive right lower lobe infiltrate and blunting of the right costophrenic angle. Electronically Signed: Jose Mccoy MD at 8:47 EST , Physical Exam Narrative Appears restless and frustrated Resp normal respiratory effort GI GI Narrative: Nondistended, soft, patient reports tenderness in all 4 quadrants but there is no guarding Extremity Extremity Narrative: There is a pigtail catheter emanating from the patient's posterior thigh on the right. This is connected to a DAVID drain which is draining a purulent yellow fluid. There is tenderness and woodiness of the soft tissues with palpation but no surrounding erythema. Assessment & Plan Assessment/Plan (1) Abscess of muscle of thigh: PLAN: Status post CT-guided percutaneous drain to right adductor abscess yesterday. Gram stain consistent with gram-positive cocci. Patient's blood cultures and urine cultures have all returned MSSA. Recommend continuing drain maintenance for draining right thigh. Have asked nursing to perform regular flushes (each shift) with 5 mL sterile saline towards the patient and 5 mL towards the drain via a three-way stopcock that I have introduced into the patient's drain circuitry. (2) Abdominal pain in male: PLAN: Slowly improving with exam. No acute surgical intervention warranted. Patient was noted to have bleeding duodenal ulcers during endoscopy with GI yesterday. These were treated and patient's hemoglobin appears to be responding favorably. Charges/Coding Visit Charges Inpatient E&M: 74011 Subs Hosp L2
[2021-04-16] MEDS: Morphine 2 MG/ML Syringe IV ×4 (13:19→23:39)
--- NOTE | 2021-04-16 14:23 | PN.HOSP_ITS ---
Subjective Subjective Patient seen and examined. He still complains of generalized pain especially back pain. Review of systems otherwise negative. He had drains placed in his lower extremities yesterday to drain the abscesses. wbc is down to 24 today. Objective Data Objective Data Vital Signs: Vital Signs Temp Pulse Resp BP Pulse Ox 98.1 F 90 43 H 133/83 H 98 04/16/21 12:32 04/16/21 14:00 04/16/21 14:00 04/16/21 14:00 04/16/21 14:00 Oxygen Flow Rate (L/min) [5] 4 Oxygen Flow Rate (L/min) [4] 4 Oxygen Flow Rate (L/min) [3] 4 Oxygen Flow Rate (L/min) [2] 2 Oxygen Flow Rate (L/min) [1 ( 2 Initial Baseline)] Oxygen Flow Rate (L/min) 2 Oxygen Delivery Method [5] Nasal Cannula Oxygen Delivery Method [4] Nasal Cannula Oxygen Delivery Method [3] Nasal Cannula Oxygen Delivery Method [2] Nasal Cannula Oxygen Delivery Method [1 ( Nasal Cannula Initial Baseline)] Oxygen Delivery Method Room Air Weight: 195 lb 5.273 oz Body Mass Index (BMI) 26.4 Intake & Output: Intake and Output for Last 24 Hours 04/14/21 04/15/21 04/16/21 23:59 23:59 23:59 Intake Total 3044.32 / 3044.32 1010 / 1010 1117.92 / 1117.92 Output Total 2150 / 2650 4460 / 4485 1275 / 1275 Balance 894.32 / 394.32 -3450 / -3475 -157.08 / -157.08 Medical Nutrition Assessment Dietitian: Malnutrition Criteria Met Start: 04/13/21 12:55 Freq: Status: Active Protocol: Document 04/14/21 09:24 [facility] (Rec: 04/14/21 09:24 [facility] [id number]) Nutrition Malnutrition Evidence of Malnutrition Exists Yes Malnutrition (severe): Chronic Evidenced By Suboptimal Energy Intake ( Severe),Weight Loss (Severe) Clinical Problem Chronic Disease or Condition Related Malnutrition Etiology Severe protein-calorie malnutrition in the context of chronic disease/injury and social circumstance related to increased energy expenditure/ inadequate oral intake, pressure injury and drug abuse Signs/Symptoms as evidenced by ~10% wt loss at time of adm x 1 month and PO meeting less than 50% estimated nutrition needs for protein and calories Status Active Problem Recommendation Dietitian Recommendations/Changes Recommend advance PO as tolerated to Regular diet. Will continue 240ml ensure clear TID w/ meals. Will conitnue Darryl BID w/ medpass for wound healing. Adjust ONS as diet advanced from clear liquids. May need to consider enteral nutrition support if PO established inadequate at meals and weight continues to decline. Lab / Micro Data Result Diagrams: 04/16/21 03:50 04/16/21 03:50 Labs: Laboratory Results - last 24 hr 04/15/21 18:35: Hgb 7.5 L, Hct 22.7 L 04/15/21 : HIV 1&2 Antibody Non-Reactive 04/16/21 03:50: WBC 24.7 H, RBC 3.05 L, Hgb 7.7 L, Hct 23.6 L, MCV 77.4 L, MCH 25.2 L, MCHC 32.6, RDW Std Deviation 61.6 H, RDW Coeff of Pilo 22.4 H, Plt Count 307, MPV 9.0, Neut % (Auto) Not Reportable, Absolute Neuts (auto) 21.0 H, Absolute Lymphs (auto) 2.72, Total Counted 100, Neutrophils % (Manual) 85 H, Lymphocytes % (Manual) 11 L, Monocytes % (Manual) 3, Metamyelocytes % 1, Diff Path Review May , Platelet Estimate ADEQUATE, RBC Morphology NORM C+C, Anisocytosis 3+ 04/16/21 03:50: Sodium 136, Potassium 3.0 L, Chloride 101, Carbon Dioxide 28.0, Anion Gap 7, BUN 15, Creatinine 0.76, Estim Creat Clear Calc 116.29, Est GFR (MDRD) Af Amer 134, Est GFR (MDRD) Non-Af 111, BUN/Creatinine Ratio 19.7, Glucose 131 H, Calcium 7.1 L, Total Bilirubin 0.40, AST 32, ALT 30, Alkaline Phosphatase 127 H, Total Protein 6.4, Albumin 1.0 L, Globulin 5.4 H, Albumin/Globulin Ratio 0.2 L 04/16/21 06:40: Vancomycin Trough 14.0 Micro: Microbiology 04/15/21 14:15 Abs - Other Gram Stain - Final 04/15/21 14:15 Abs - Other Wound Culture - Preliminary Staphylococcus aureus 04/13/21 14:15 Blood Culture (Wb) - Anticubital Left Blood Culture - Final Staphylococcus aureus 04/13/21 14:00 Blood Culture (Wb) - Right Wrist Blood Culture - Final Staphylococcus aureus 04/12/21 15:00 Blood Culture (Wb) - Right Hand Bacteria Detection (PCR) - Final Staphylococcus aureus 04/12/21 15:00 Blood Culture (Wb) - Right Hand Blood Culture - Final Staphylococcus aureus 04/12/21 16:18 Urine Catheter - Catheter Urine Culture - Final Staphylococcus aureus 04/12/21 17:30 Blood Culture (Wb) - Anticubital Left Blood Culture - Final Staphylococcus aureus 04/12/21 20:05 Stool Stool Occult Blood (JOSÉ MANUEL) - Final Occult Blood Positive ABG Data ABG results: ABG 04/15/21 18:28 Specimen Type ART Sample Site R Radial pH 7.48 H Bicarbonate Actual 23.8 Total CO2 25 Base Excess 0 O2 Saturation 92 L ABG pCO2 32.1 L ABG pO2 58 L Gerardo Test Positive Radiography Diagnostic Testing: Radiology Impression Abscess Drainage CT 04/15/21 13:55 IMPRESSION: 1. CT directed drainage of a fluid collection using CT image guidance and image documentation as described. 80 cc of purulent fluid was aspirated. The patient tolerated the procedure well. 2. Conscious Sedation protocol utilized with independent monitoring Electronically Signed: Jose Mccoy MD at 14:48 EST , Chest X-Ray 04/15/21 18:16 IMPRESSION: There is a right pleural effusion. Right lower lobe pneumonia. Electronically Signed: Ramesh Madrid MD at 19:07 EST , KUB X-Ray 04/15/21 18:30 IMPRESSION: No acute findings. Electronically Signed: Ramesh Madrid MD at 19:09 EST , Chest X-Ray 04/16/21 05:55 IMPRESSION: Progressive right lower lobe infiltrate and blunting of the right costophrenic angle. Electronically Signed: Jose Mccoy MD at 8:47 EST , Lumbar Spine MRI 04/16/21 10:08 IMPRESSION: Multilevel degenerative changes, as described above. Epidural fluid collection at the upper sacrum with possible abscess. Left paraspinal fluid collection with abscess versus hematoma. Electronically Signed: Destin Giordano MD at 13:29 EST , ADDENDUM: 04/16/21 1344 IMPRESSION: Multilevel degenerative changes, as described above. Epidural fluid collection at the upper sacrum with possible abscess. Left paraspinal fluid collection with abscess versus hematoma. N.B. : The above Results were Read Back by Destin Giordano MD to Grey Cheng MD, and understanding confirmed on 04/16/2021 13:37:46 (ET). Electronically Signed: Destin Giordano MD at 13:29 EST Reading Location ID and State: [facility] / [place] , Service support , Physical Exam Const alert Orientation / Consciousness: lethargic Exam Limitations: no limitations HEENT head/scalp atraumatic Head and Scalp: normocephalic Mouth: dry mucous membranes Eyes PERRL, EOMs intact bilaterally and conjunctivae normal Neck no lymphadenopathy Resp Resp Narrative: mildly diminished breath sounds bibasally, no wheezes or crackles. On room air. Cardio regular rate, regular rhythm, S1 normal heart sound, S2 normal heart sound and no murmurs GI normal to inspection, nondistended, normoactive bowel sounds, soft to palpation, non-tender and non-distended Extremity Extremity Narrative: both LEs mildly swollen, firm, calf tenderness to palpation; drains in place in thighs Peripheral Pulses: Yes pulses 2+ throughout Skin no rashes or lesions noted Skin Narrative: has erythematous nontender lesions on toes bilaterally. Neuro oriented x3, CN's II-XII intact bilaterally and moves all extremities Neuro Narrative: lethargic, uncomfortable Sensorium / Orientation: awake and alert Psych Mood & Affect: anxious Assessment & Plan Assessment/Plan (1) Abscess of muscle of thigh: (2) Acute blood loss anemia: (3) Anemia: (4) Pulmonary embolism: (5) Bacteremia: (6) Acute deep vein thrombosis (DVT): QUALIFIERS: DVT location: lower extremity Affected thrombotic vein of extremity: other lower extremity vein Laterality: bilateral Qualified Code(s): I82.493 - Acute embolism and thrombosis of other specified deep vein of lower extremity, bilateral PLAN: #Acute bilateral DVT and PE * heparin drip discontinued as patient was anemic and had the abscesses in the abductor muscle of the RLE which was concerning for possible hematoma * patient currently on SCDs * now has an epidural abscess which will be drained by Dr Wolff; this will again preclude putting him on blood thinners. * 2D echo showed no evidence of endocarditis showed no evidence of right heart strain * #Sepsis due to MRSA bacteremia and bilateral thigh abscess as well as lumbar epidural abscess * Likely due to his history of IV drug use. * Repeat blood cultures were positive again for MRSA. * 2D echo negative for any evidence of endocarditis. * MORELIA ordered. Due to patient's recent history of acute on chronic anemia with upper GI endoscopy during this admission showed multiple large bleeding ulcers, cardiology is now willing to do the MORELIA during this admission. * had drains placed in thighs yesterday for thigh abscesses * MRI lumbar spine done o/a of back pain today showed a 6.7 x 3.4cm lobular septated nonenhancing fluid collection in the left retroperitoneal paraspinal musculature and 1.1 x1cm nonenhancing fluid collection displacing hte sacral thecal sac to the left. * spine surgery consulted * on IV vancomycin * #Bilateral pneumonia: On IV vancomycin and Zosyn. Blood cultures positive for MRSA. Sputum cultures pending. On room air. #Acute blood loss anemia due to bleeding peptic ulcers and esopagitis * Hemoglobin today is 7.7. S/p transfusion of 4 units of PRBCs * had EGD which showed multiple large bleeding ulcers and esophagitis with no e vidence of perforation; these were injected and treated wt heater probe. * On IV PPI * on IV octreotide drip * #Sacral decubitus ulcers: Present on admission. Plastic surgery consulted. Had debridement done today. Wound care on board. #History of polysubstance abuse: * Patient admits to using IV heroin * Not in acute withdrawal now. Will place on Withdrawal protocol with buprenorphine if he goes into acute withdrawal * DVT prophylaxis:currently on SCDs due to acute on chronic anemia and bleeding peptic ulcers. Charges/Coding Visit Charges Inpatient E&M: 44614 Subs Hosp L3
[2021-04-16 15:24] LABS: Pathologist Review Reviewed
--- NOTE | 2021-04-16 17:04 | DS.PCM_ITS ---
Providers Date of Admission: 04/12/21 Primary Care Physician: No Primary Care Phys Consultations 04/12/21 21:22 Consult: Respiratory Care Technician / Pulmonary Medicine Routine Consulting Provider: Pulmonary Medicine jamal [place] Reason for Consult: Sepsis/PE/anemia EMERGENT Consult: No Notified: Yes Date Notified: 04/12/21 Time Notified: 19:30 Method of Notification: Text Consult: Onc/Wound/regional sales consultant Routine Comment: Consult: Plastic Surgery Routine Consulting Provider: Nitin Starr Reason for Consult: Decubitus ulcers, unstageable EMERGENT Consult: No Notified: Yes Date Notified: 04/12/21 Time Notified: 11:25 Method of Notification: phone Method of Consult:: In-Person Comments:: x2 Large unstageable ulcers to buttocks 04/12/21 22:58 Consult: Gastroenterology Routine Consulting Provider: Erin Gastroenterlobo Reason for Consult: GI Bleed EMERGENT Consult: No MD Notified: Yes Date Notified: 04/12/21 Time Notified: 12:09 Method of Notification: phone Method of Consult:: In-Person Comments:: Positive Hemocult stool 04/14/21 10:18 Consult: Infectious Disease Routine Consulting Provider: Grey Cheng Reason for Consult: bacteremia EMERGENT Consult: No MD Notified: Yes Date Notified: 04/15/21 Time Notified: 06:46 Method of Notification: Text 04/16/21 07:54 Consult: Cardiology Routine Consulting Provider: Darian Leyva Reason for Consult: concern for infective endocarditis, needs MORELIA EMERGENT Consult: No Notified: Yes Date Notified: 04/16/21 Time Notified: 07:54 Method of Notification: Text 04/16/21 13:52 Consult: Orthopedics Routine Consulting Provider: Tyler Wolff Reason for Consult: Paraspinal Abscess vs hematoma EMERGENT Consult: Yes MD Notified: Yes Date Notified: 04/16/21 Time Notified: 13:52 Method of Notification: voicemail Reason For Visit: PE Diagnosis Discharge Diagnosis (1) Abscess of muscle of thigh: Status: Acute Code(s): M60.059 - Infective myositis, unspecified thigh (2) Acute blood loss anemia: Status: Acute Code(s): D62 - Acute posthemorrhagic anemia (3) Anemia: Status: Acute Code(s): D64.9 - Anemia, unspecified (4) Pulmonary embolism: Status: Acute Code(s): I26.99 - Other pulmonary embolism without acute cor pulmonale (5) Bacteremia: Status: Acute Code(s): R78.81 - Bacteremia (6) Acute deep vein thrombosis (DVT): Status: Acute Code(s): I82.409 - Acute embolism and thrombosis of unspecified deep veins of unspecified lower extremity Qualifiers: Affected thrombotic vein of extremity: other lower extremity vein DVT location: lower extremity Laterality: bilateral Qualified Code(s): I82.493 - Acute embolism and thrombosis of other specified deep vein of lower extremity, bilateral Medications at Discharge Home Medications NK 04/12/21 Hospital Course Operations None Procedures 2-D Echocardiogram and EGD Summary of Care Provided Minutes Spent on Discharge: 65 Hospital Course: Patient is a 60-year-old male with a past medical history as outlined was admitted through the ED on 04/12/2021 with a complaint of generalized weakness and inability to walk as well as recurrent falls and chest pain which have been going on for about 3 days. Patient lives with his roommate and had fallen about 3 weeks prior to admission. He had been on the floor for a few days. His roommate did try to get him into his bed. Patient had had several falls and had mostly pain recumbent in bed on the floor. He also admitted to chest pain and worsening shortness of breath. Patient had a history of using IV drugs namely IV heroin as well as methamphetamine. On admission he had a white cell count of 50,000 with 19.8% bandemia and hemoglobin of 6.9. D-dimer was 10.9 and potassium was 5.2. Creatinine was 1.31 and initial troponin was 432. CTA of the chest showed pulmonary embolism of the right upper lobe bronchus and right middle as well as right lower lobe branches in the left lower and upper lobe branches as well as the lingular branch with no saddle embolus and no heart strain. He also had bilateral pneumonia and right pleural effusion. He was initially admitted and managed for acute hypoxic respiratory insufficiency due to acute bilateral PE and bilateral pneumonia, bilateral DVT is detected. Duplex of the lower extremities, acute anemia and LAVELL as well as hyperkalemia and hyponatremia. He was started on IV broad-spectrum antibiotics and transfused with packed red blood cells. Critical care was also consulted. He had 2D echo which showed EF of 65% with no evidence of diastolic dysfunction. Patient's blood cultures came back positive for MRSA. He was placed on heparin drip as well for the DVTs and the PEs. He was also noted to have sacral decubitus ulcers which were unstageable and plastic surgery was consulted. Stool for occult blood was positive so gastroenterology was consulted. He subsequently had CT of the abdomen and pelvis which showed numerous abscesses of the abductor musculature bilaterally. CT-guided abscess drainage was ordered. Patient's anemia was refractory to transfusion so his heparin drip was held. He had EGD which showed large duodenal ulcers which were injected with epinephrine and also had a heater probe applied. He had the drains placed for the thigh ulcers. Patient subsequently complained of back pain as well. Of note, ID was on board. He had a lumbar spine MRI which showed a 6.7 x 3.4 cm lobular septated nonenhancing fluid collection collection in the left retroperitoneal paraspinal musculature and a 1.1 x 1 cm nonenhancing fluid collection displacing the sacral thecal sac to the left. Spine surgery was urgently consulted. Of note, MORELIA was also ordered in light of blood cultures being positive for MRSA. However in light of his upper endoscopy which showed multiple large bleeding ulcers, cardiology regarding this as a contraindication to doing the MORELIA. Spine surgery had wanted to take patient to the OR for drainage and washout of the spine abscess. However anesthesiology was reluctant to do the surgery in [facility] due to patient's tenuous state. Patient was therefore emergently transferred to [facility] for further management. He was accepted in the ICU of [facility] on 04/17/2021. Patient was seen and examined prior to discharge. Patient remains very frail and lethargic and kept complaining of back pain and generalised pain. Labs and vitals reviewed. Physical Exam Const alert Constitutional Narrative: lethargic General Appearance: disheveled and lethargic Orientation / Consciousness: lethargic Exam Limitations: no limitations HEENT normocephalic and head/scalp atraumatic Eyes PERRL, EOMs intact bilaterally and conjunctivae normal Neck no lymphadenopathy Resp normal respiratory effort, no retractions, no use of accessory muscles and clear to auscultation bilaterally Resp Narrative: mildly diminished breath sounds bibasally, no wheezes or crackles. On room air. Cardio regular rate, regular rhythm, S1 normal heart sound, S2 normal heart sound and no murmurs GI normal to inspection, nondistended, normoactive bowel sounds, soft to palpation, non-tender and non-distended Extremity Extremity Narrative: both LEs mildly swollen, firm, calf tenderness to pa lpation; drains in place in thighs Skin no rashes or lesions noted Skin Narrative: has erythematous nontender lesions on toes bilaterally. Neuro Neuro Narrative: lethargic, uncomfortable Psych Psych Narrative: flat affect Mood & Affect: anxious Medical Records Data Medical Nutrition Assessment Dietitian: Malnutrition Criteria Met Start: 04/13/21 12:55 Freq: Status: Active Protocol: Document 04/14/21 09:24 [facility] (Rec: 04/14/21 09:24 [facility] [id number]) Nutrition Malnutrition Evidence of Malnutrition Exists Yes Malnutrition (severe): Chronic Evidenced By Suboptimal Energy Intake ( Severe),Weight Loss (Severe) Clinical Problem Chronic Disease or Condition Related Malnutrition Etiology Severe protein-calorie malnutrition in the context of chronic disease/injury and social circumstance related to increased energy expenditure/ inadequate oral intake, pressure injury and drug abuse Signs/Symptoms as evidenced by ~10% wt loss at time of adm x 1 month and PO meeting less than 50% estimated nutrition needs for protein and calories Status Active Problem Recommendation Dietitian Recommendations/Changes Recommend advance PO as tolerated to Regular diet. Will continue 240ml ensure clear TID w/ meals. Will conitnue Darryl BID w/ medpass for wound healing. Adjust ONS as diet advanced from clear liquids. May need to consider enteral nutrition support if PO established inadequate at meals and weight continues to decline. Weight / BMI Weight Weight: 195 lb 5.273 oz Body Mass Index (BMI) 26.4 ABG / Lab / Microbiology Data Result Diagrams: 04/16/21 03:50 04/16/21 03:50 Laboratory: Laboratory Results - last 24 hr 04/15/21 18:35: Hgb 7.5 L, Hct 22.7 L 04/15/21 : HIV 1&2 Antibody Non-Reactive 04/16/21 03:50: WBC 24.7 H, RBC 3.05 L, Hgb 7.7 L, Hct 23.6 L, MCV 77.4 L, MCH 25.2 L, MCHC 32.6, RDW Std Deviation 61.6 H, RDW Coeff of Pilo 22.4 H, Plt Count 307, MPV 9.0, Neut % (Auto) Not Reportable, Absolute Neuts (auto) 21.0 H, Absolute Lymphs (auto) 2.72, Total Counted 100, Neutrophils % (Manual) 85 H, Lymphocytes % (Manual) 11 L, Monocytes % (Manual) 3, Metamyelocytes % 1, Diff Path Review Reviewed, Platelet Estimate ADEQUATE, RBC Morphology NORM C+C, Anisocytosis 3+ 04/16/21 03:50: Sodium 136, Potassium 3.0 L, Chloride 101, Carbon Dioxide 28.0, Anion Gap 7, BUN 15, Creatinine 0.76, Estim Creat Clear Calc 116.29, Est GFR (MDRD) Af Amer 134, Est GFR (MDRD) Non-Af 111, BUN/Creatinine Ratio 19.7, Gl ucose 131 H, Calcium 7.1 L, Total Bilirubin 0.40, AST 32, ALT 30, Alkaline Phosphatase 127 H, Total Protein 6.4, Albumin 1.0 L, Globulin 5.4 H, Albumin/Globulin Ratio 0.2 L 04/16/21 06:40: Vancomycin Trough 14.0 Microbiology: Microbiology 04/15/21 14:15 Abs - Other Gram Stain - Final 04/15/21 14:15 Abs - Other Wound Culture - Preliminary Staphylococcus aureus 04/13/21 14:15 Blood Culture (Wb) - Anticubital Left Blood Culture - Final Staphylococcus aureus 04/13/21 14:00 Blood Culture (Wb) - Right Wrist Blood Culture - Final Staphylococcus aureus 04/12/21 15:00 Blood Culture (Wb) - Right Hand Bacteria Detection (PCR) - Final Staphylococcus aureus 04/12/21 15:00 Blood Culture (Wb) - Right Hand Blood Culture - Final Staphylococcus aureus 04/12/21 16:18 Urine Catheter - Catheter Urine Culture - Final Staphylococcus aureus 04/12/21 17:30 Blood Culture (Wb) - Anticubital Left Blood Culture - Final Staphylococcus aureus 04/12/21 20:05 Stool Stool Occult Blood (JOSÉ MANUEL) - Final Occult Blood Positive ABG: ABG 04/15/21 18:28 Specimen Type ART Sample Site R Radial pH 7.48 H Bicarbonate Actual 23.8 Total CO2 25 Base Excess 0 O2 Saturation 92 L ABG pCO2 32.1 L ABG pO2 58 L Gerardo Test Positive Radiography Diagnostic Testing: Radiology Impression Chest X-Ray 04/15/21 18:16 IMPRESSION: There is a right pleural effusion. Right lower lobe pneumonia. Electronically Signed: Ramesh Madrid MD at 19:07 EST , KUB X-Ray 04/15/21 18:30 IMPRESSION: No acute findings. Electronically Signed: Ramesh Madrid MD at 19:09 EST , Chest X-Ray 04/16/21 05:55 IMPRESSION: Progressive right lower lobe infiltrate and blunting of the right costophrenic angle. Electronically Signed: Jose Mccoy MD at 8:47 EST , Lumbar Spine MRI 04/16/21 10:08 IMPRESSION: Multilevel degenerative changes, as described above. Epidural fluid collection at the upper sacrum with possible abscess. Left paraspinal fluid collection with abscess versus hematoma. Electronically Signed: Destin Giordano MD at 13:29 EST Reading Location ID and State: [address] [place] [address] , Service support , ADDENDUM: 04/16/21 1344 IMPRESSION: Multilevel degenerative changes, as described above. Epidural fluid collection at the upper sacrum with possible abscess. Left paraspinal fluid collection with abscess versus hematoma. N.B. : The above Results were Read Back by Destin Giordano MD to Grey Cheng MD, and understanding confirmed on 04/16/2021 13:37:46 (ET). Electronically Signed: Destin Giordano MD at 13:29 EST Reading Location ID and State: [facility] / [place] , Service support , D/C Instructions Discharge Diet: No restrictions Meaningful Use Info Meaningful Use Diagnoses (Choose all that apply): VTE VTE Anticoag overlap given w/in hospital stay or rx'd at dc?: Yes Pt receive overlap for 5 days?: No Reason overlap not ordered, prescribed, or given for 5 days: Medical Contraindication (acute anemia due to acute upper GI bleed) Discharge Plan Admission Admit Date/Time: 04/12/21 19:26 Primary Reason for Your Visit: sepsis due to MRSA bacteremia, PE, anemia, DVT, spine abscess Attending Provider: Leticia Kim Primary Care Provider: Care Physician,No Primary Consulting Providers: Grey Cheng ; Reilly Olivares ; Colt Robertson ; Bella Evans NP ; Nitin Starr ; Darian Leyva ; Tyler Wolff Instructions Patient Instructions: Abscess Drainage, Procedural Sedation Discharge Orders/Prescriptions Prescriptions: No Action NK RF: 0 Referrals / Follow Up: Care Physician,No Primary [Primary Care Provider] - Disposition Disposition (needs filled in before D/C Order can be placed): Acute Care Hospital Charges/Coding Visit Charges Inpatient E&M: 40405 Disch Hosp
--- NOTE | 2021-04-16 17:36 | CON.PCM.OR_ITS ---
HPI Consult Data Date of Consult: 04/16/21 HPI Narrative Reason for Consultation: Back pain HPI Narrative: ROMEO DOVER, is a 60 M who presents with chronic back pain. He was admitted on 04/12/2021. He is currently in the intensive care unit with multiple medical issues including DVT with pulmonary embolism, urinary tract infection, GI bleed, renal failure, sepsis, as well as multiple skin and soft tissue ulcers including on the heels of the bilateral feet, the sacrococcygeal region and right gluteal region. The patient does have a history of IV drug abuse. The patient was complaining of back pain with right lower extremity tingling and weakness. A lumbar MRI was performed showing a collection of epidural fluid and spine surgery was consulted for evaluation and management. The patient was seen and examined. He is lying in bed resting comfortably alert and oriented. He complains of some mild back pain which is chronic. He also describes some decrease sensation in the bilateral feet, left greater than right. [facility] Medical History Atherosclerotic heart disease of [place] coronary artery with other forms of angina pectoris CAD (coronary artery disease) Chest pain Chronic pain COPD (chronic obstructive pulmonary disease) Hypertension Old myocardial infarction Shortness of breath Tobacco abuse Home Medications NK 04/12/21 [History Last Taken Unknown] Allergy/AdvReac Type Severity Reaction Status Date / Time aspirin Allergy Hives Verified 04/12/21 14:55 Sulfa (Sulfonamide Allergy Hives Verified 04/12/21 14:55 Antibiotics) epinephrine AdvReac Anaphylaxis Verified 04/12/21 14:55 Bee stings Allergy Anaphylaxis Uncoded 04/12/21 14:55 Family History Father CVA (cerebral vascular accident) COPD (chronic obstructive pulmonary disease) Mother CVA (cerebral vascular accident) Surgical History no surgical history Social History household members: other details: room mate Smoking Status: Current every day smoker second hand exposure: Yes substance use type: heroin and amphetamines Vital Signs Vital Signs Vital Signs: 04/15/21 17:40 04/15/21 17:45 04/15/21 17:50 Temperature Temperature Source Pulse Rate 98 95 Pulse Strength Respiratory Rate 45 H 45 H 45 H Respiratory Effort Respiratory Depth Respiratory Pattern Blood Pressure 92/55 L 119/67 118/66 Blood Pressure [BP] Blood Pressure Mean 67 84 83 Blood Pressure Mean [BP] Blood Pressure Source Monitor Monitor Monitor Blood Pressure Source [BP] Blood Pressure Position Semi-Fowlers Semi-Fowlers Semi-Fowlers Blood Pressure Position [BP] Blood Pressure Location Right Arm Right Arm Right Arm Blood Pressure Location [BP] Baseline BP 139/86 139/86 139/86 Pulse Ox 95 94 95 Oxygen Delivery Method Room Air Room Air Room Air Oxygen Flow Rate (L/min) 04/15/21 17:55 04/15/21 18:07 04/15/21 18:08 Temperature Temperature Source Pulse Rate 97 98 98 Pulse Strength Respiratory Rate 42 H 43 H 43 H Respiratory Effort Respiratory Depth Respiratory Pattern Blood Pressure 118/66 118/66 91/49 L Blood Pressure [BP] Blood Pressure Mean 83 83 63 Blood Pressure Mean [BP] Blood Pressure Source Monitor Monitor Monitor Blood Pressure Source [BP] Blood Pressure Position Semi-Fowlers Semi-Fowlers Semi-Fowlers Blood Pressure Position [BP] Blood Pressure Location Right Arm Right Arm Right Arm Blood Pressure Location [BP] Baseline BP 139/86 139/86 139/86 Pulse Ox 95 97 95 Oxygen Delivery Method Room Air Room Air Room Air Oxygen Flow Rate (L/min) 04/15/21 18:15 04/15/21 18:20 04/15/21 18:35 Temperature 99.5 F H 99.5 F H Temperature Source Temporal Temporal Pulse Rate 100 96 94 Pulse Strength Respiratory Rate 41 H 43 H 40 H Respiratory Effort Respiratory Depth Respiratory Pattern Tachypnea Blood Pressure 121/70 H 121/70 H Blood Pressure [BP] Blood Pressure Mean 87 87 Blood Pressure Mean [BP] Blood Pressure Source Monitor Monitor Blood Pressure Source [BP] Blood Pressure Position Semi-Fowlers Semi-Fowlers Blood Pressure Position [BP] Blood Pressure Location Right Arm Right Arm Blood Pressure Location [BP] Baseline BP 139/86 139/86 Pulse Ox 98 96 Oxygen Delivery Method Room Air Room Air Oxygen Flow Rate (L/min) 04/15/21 18:43 04/15/21 19:13 04/15/21 19:38 Temperature 99.5 F H Temperature Source Temporal Pulse Rate 97 95 93 Pulse Strength Respiratory Rate 46 H 20 H Respiratory Effort Respiratory Depth Respiratory Pattern Blood Pressure 123/72 H Blood Pressure [BP] 99/64 Blood Pressure Mean 89 Blood Pressure Mean [BP] 75 Blood Pressure Source Monitor Blood Pressure Source [BP] Monitor Blood Pressure Position Semi-Fowlers Blood Pressure Position [BP] Semi-Fowlers Blood Pressure Location Right Arm Blood Pressure Location [BP] Left Arm Baseline BP 139/86 Pulse Ox 98 87 Oxygen Delivery Method Room Air Room Air Oxygen Flow Rate (L/min) 04/15/21 20:00 04/15/21 21:00 04/15/21 21:15 Temperature 97.9 F Temperature Source Temporal Pulse Rate 92 93 Pulse Strength Respiratory Rate 23 H 24 H Respiratory Effort Normal Non-Labored Respiratory Depth Normal Respiratory Pattern Tachypnea Blood Pressure Blood Pressure [BP] 119/77 122/97 H Blood Pressure Mean Blood Pressure Mean [BP] 91 105 Blood Pressure Source Blood Pressure Source [BP] Monitor Monitor Blood Pressure Position Blood Pressure Position [BP] Semi-Fowlers Semi-Fowlers Blood Pressure Location Blood Pressure Location [BP] Left Arm Left Arm Baseline BP Pulse Ox 100 100 93 Oxygen Delivery Method Nasal Cannula Nasal Cannula Nasal Cannula Oxygen Flow Rate (L/min) 6 2 4 04/15/21 22:00 04/15/21 23:00 04/16/21 00:00 Temperature 97.5 F L Temperature Source Temporal Pulse Rate 90 96 95 Pulse Strength Respiratory Rate 22 H 22 H 21 H Respiratory Effort Normal Non-Labored Respiratory Depth Normal Respiratory Pattern Tachypnea Blood Pressure 110/54 L Blood Pressure [BP] 121/85 H 131/79 H Blood Pressure Mean 72 Blood Pressure Mean [BP] 97 96 Blood Pressure Source Monitor Blood Pressure Source [BP] Monitor Monitor Blood Pressure Position Semi-Fowlers Blood Pressure Position [BP] Semi-Fowlers Semi-Fowlers Blood Pressure Location Left Arm Blood Pressure Location [BP] Left Arm Left Arm Baseline BP Pulse Ox 100 100 100 Oxygen Delivery Method Nasal Cannula Nasal Cannula Nasal Cannula Oxygen Flow Rate (L/min) 2 2 2 04/16/21 01:00 04/16/21 02:00 04/16/21 03:00 Temperature Temperature Source Pulse Rate 95 92 97 Pulse Strength Respiratory Rate 22 H 25 H 23 H Respiratory Effort Respiratory Depth Respiratory Pattern Blood Pressure Blood Pressure [BP] 127/80 H 125/83 H 127/69 H Blood Pressure Mean Blood Pressure Mean [BP] 95 97 88 Blood Pressure Source Blood Pressure Source [BP] Monitor Monitor Monitor Blood Pressure Position Blood Pressure Position [BP] Semi-Fowlers Semi-Fowlers Semi-Fowlers Blood Pressure Location Blood Pressure Location [BP] Left Arm Left Arm Left Arm Baseline BP Pulse Ox 100 100 100 Oxygen Delivery Method Nasal Cannula Nasal Cannula Nasal Cannula Oxygen Flow Rate (L/min) 2 2 2 04/16/21 03:28 04/16/21 03:59 04/16/21 04:00 Temperature Temperature Source Pulse Rate 99 96 93 Pulse Strength Respiratory Rate 18 25 H Respiratory Effort Normal Non-Labored Respiratory Depth Normal Respiratory Pattern Normal Blood Pressure Blood Pressure [BP] 100/43 L Blood Pressure Mean Blood Pressure Mean [BP] 62 Blood Pressure Source Blood Pressure Source [BP] Monitor Blood Pressure Position Blood Pressure Position [BP] Semi-Fowlers Blood Pressure Location Blood Pressure Location [BP] Left Arm Baseline BP Pulse Ox 98 100 Oxygen Delivery Method Nasal Cannula Nasal Cannula Oxygen Flow Rate (L/min) 2 2 04/16/21 05:00 04/16/21 06:00 04/16/21 06:45 Temperature Temperature Source Pulse Rate 99 90 95 Pulse Strength Respiratory Rate 27 H 30 H 28 H Respiratory Effort Respiratory Depth Respiratory Pattern Tachypnea Blood Pressure Blood Pressure [BP] 118/63 139/81 H Blood Pressure Mean Blood Pressure Mean [BP] 81 100 Blood Pressure Source Blood Pressure Source [BP] Monitor Monitor Blood Pressure Position Blood Pressure Position [BP] Semi-Fowlers Semi-Fowlers Blood Pressure Location Blood Pressure Location [BP] Left Arm Left Arm Baseline BP Pulse Ox 100 100 100 Oxygen Delivery Method Nasal Cannula Nasal Cannula Nasal Cannula Oxygen Flow Rate (L/min) 2 2 2 04/16/21 07:00 04/16/21 08:00 04/16/21 09:00 Temperature 98.9 F Temperature Source Temporal Pulse Rate 90 97 93 Pulse Strength Respiratory Rate 24 H 28 H 27 H Respiratory Effort Normal Respiratory Depth Normal Respiratory Pattern Normal Blood Pressure Blood Pressure [BP] 131/84 H 129/87 H 108/61 Blood Pressure Mean Blood Pressure Mean [BP] 99 101 76 Blood Pressure Source Blood Pressure Source [BP] Monitor Monitor Monitor Blood Pressure Position Blood Pressure Position [BP] Semi-Fowlers Semi-Fowlers Semi-Fowlers Blood Pressure Location Blood Pressure Location [BP] Left Arm Left Arm Left Arm Baseline BP Pulse Ox 98 99 100 Oxygen Delivery Method Nasal Cannula Nasal Cannula Room Air Oxygen Flow Rate (L/min) 2 2 04/16/21 09:38 04/16/21 10:00 04/16/21 11:00 Temperature Temperature Source Pulse Rate 94 92 Pulse Strength Weak (1+) Respiratory Rate 26 H 22 H Respiratory Effort Respiratory Depth Respiratory Pattern Blood Pressure Blood Pressure [BP] 124/88 H 138/86 H Blood Pressure Mean Blood Pressure Mean [BP] 100 103 Blood Pressure Source Blood Pressure Source [BP] Monitor Monitor Blood Pressure Position Blood Pressure Position [BP] Semi-Fowlers Semi-Fowlers Blood Pressure Location Blood Pressure Location [BP] Left Arm Left Arm Baseline BP Pulse Ox 97 95 Oxygen Delivery Method Room Air Room Air Oxygen Flow Rate (L/min) 04/16/21 11:45 04/16/21 11:58 04/16/21 12:00 Temperature Temperature Source Pulse Rate 93 92 95 Pulse Strength Respiratory Rate 16 28 H Respiratory Effort Respiratory Depth Respiratory Pattern Blood Pressure 137/86 H 133/76 H Blood Pressure [BP] Blood Pressure Mean 103 95 Blood Pressure Mean [BP] Blood Pressure Source Monitor Monitor Blood Pressure Source [BP] Blood Pressure Position Supine Supine Blood Pressure Position [BP] Blood Pressure Location Right Arm Left Arm Blood Pressure Location [BP] Baseline BP Pulse Ox 93 92 Oxygen Delivery Method Room Air Room Air Oxygen Flow Rate (L/min) 04/16/21 12:13 04/16/21 12:24 04/16/21 12:30 Temperature Temperature Source Pulse Rate 93 93 Pulse Strength Respiratory Rate 28 H 29 H Respiratory Effort Normal Respiratory Depth Normal Respiratory Pattern Normal Blood Pressure 128/82 H 133/78 H Blood Pressure [BP] Blood Pressure Mean 97 96 Blood Pressure Mean [BP] Blood Pressure Source Monitor Monitor Blood Pressure Source [BP] Blood Pressure Position Supine Supine Blood Pressure Position [BP] Blood Pressure Location Left Arm Left Arm Blood Pressure Location [BP] Baseline BP Pulse Ox 93 97 Oxygen Delivery Method Room Air Room Air Room Air Oxygen Flow Rate (L/min) 04/16/21 12:32 04/16/21 13:00 04/16/21 14:00 Temperature 98.1 F Temperature Source Temporal Pulse Rate 95 89 90 Pulse Strength Respiratory Rate 33 H 41 H 43 H Respiratory Effort Respiratory Depth Respiratory Pattern Blood Pressure 131/86 H Blood Pressure [BP] 125/87 H 133/83 H Blood Pressure Mean 101 Blood Pressure Mean [BP] 99 99 Blood Pressure Source Monitor Blood Pressure Source [BP] Monitor Monitor Blood Pressure Position Semi-Fowlers Blood Pressure Position [BP] Semi-Fowlers Semi-Fowlers Blood Pressure Location Left Arm Blood Pressure Location [BP] Left Arm Left Arm Baseline BP Pulse Ox 96 95 98 Oxygen Delivery Method Room Air Room Air Room Air Oxygen Flow Rate (L/min) 04/16/21 15:00 04/16/21 16:00 Temperature 98.7 F Temperature Source Temporal Pulse Rate 89 89 Pulse Strength Respiratory Rate 24 H 30 H Respiratory Effort Normal Respiratory Depth Normal Respiratory Pattern Normal Blood Pressure Blood Pressure [BP] 127/74 H 132/90 H Blood Pressure Mean Blood Pressure Mean [BP] 91 104 Blood Pressure Source Blood Pressure Source [BP] Monitor Monitor Blood Pressure Position Blood Pressure Position [BP] Semi-Fowlers Semi-Fowlers Blood Pressure Location Blood Pressure Location [BP] Left Arm Left Arm Baseline BP Pulse Ox 99 100 Oxygen Delivery Method Room Air Nasal Cannula Oxygen Flow Rate (L/min) 2 Weight Weight: 195 lb 5.273 oz Body Mass Index (BMI) 26.4 Physical Exam Const alert, oriented x3 and no apparent distress General Appearance: cooperative, comfortable and well kempt HEENT normocephalic Eyes EOMs intact bilaterally and conjunctivae normal Neck full ROM General: normal visual inspection Chest inspection of chest normal Resp normal respiratory effort and normal air movement Effort and Inspection: able to speak in complete sentences GI soft to palpation, non-tender and non-distended Back/Spine Back/Spine Narrative: Dressing over sacrococcygeal and gluteal regions clean dry and intact. Cervical Spine: cervical ROM normal Thoracic Spine / Upper Back: normal to inspection Lumbar Spine / Lower Back: normal to inspection Extremity Extremity Narrative: Dressings over bilateral feet and ankles clean dry and intact. The patient reports normal sensation in the bilateral thighs. He does report decreased sensation in the left lower extremity below the knee globally as well as in the right foot. The patient has 4 out of 5 strength in bilateral hip flexion and knee extension. He is able to wiggle the toes of both feet. Neuro oriented x3, CN's II-XII intact bilaterally and moves all extremities Medical Records Data Medical Nutrition Assessment Dietitian: Malnutrition Criteria Met Start: 04/13/21 12:55 Freq: Status: Active Protocol: Document 04/14/21 09:24 [facility] (Rec: 04/14/21 09:24 [facility] [id number]) Nutrition Malnutrition Evidence of Malnutrition Exists Yes Malnutrition (severe): Chronic Evidenced By Suboptimal Energy Intake ( Severe),Weight Loss (Severe) Clinical Problem Chronic Disease or Condition Related Malnutrition Etiology Severe protein-calorie malnutrition in the context of chronic disease/injury and social circumstance related to increased energy expenditure/ inadequate oral intake, pressure injury and drug abuse Signs/Symptoms as evidenced by ~10% wt loss at time of adm x 1 month and PO meeting less than 50% estimated nutrition needs for protein and calories Status Active Problem Recommendation Dietitian Recommendations/Changes Recommend advance PO as tolerated to Regular diet. Will continue 240ml ensure clear TID w/ meals. Will conitnue Darryl BID w/ medpass for wound healing. Adjust ONS as diet advanced from clear liquids. May need to consider enteral nutrition support if PO established inadequate at meals and weight continues to decline. Lab / Micro Data Result Diagrams: 04/16/21 03:50 04/16/21 03:50 Labs: Laboratory Results - last 24 hr 04/15/21 18:35: Hgb 7.5 L, Hct 22.7 L 04/15/21 : HIV 1&2 Antibody Non-Reactive 04/16/21 03:50: WBC 24.7 H, RBC 3.05 L, Hgb 7.7 L, Hct 23.6 L, MCV 77.4 L, MCH 25.2 L, MCHC 32.6, RDW Std Deviation 61.6 H, RDW Coeff of [place] 22.4 H, Plt Count 307, MPV 9.0, Neut % (Auto) Not Reportable, Absolute Neuts (auto) 21.0 H, A bsolute Lymphs (auto) 2.72, Total Counted 100, Neutrophils % (Manual) 85 H, Lymphocytes % (Manual) 11 L, Monocytes % (Manual) 3, Metamyelocytes % 1, Diff Path Review Reviewed, Platelet Estimate ADEQUATE, RBC Morphology NORM C+C, Anisocytosis 3+ 04/16/21 03:50: Sodium 136, Potassium 3.0 L, Chloride 101, Carbon Dioxide 28.0, Anion Gap 7, BUN 15, Creatinine 0.76, Estim Creat Clear Calc 116.29, Est GFR (MDRD) Af Amer 134, Est GFR (MDRD) Non-Af 111, BUN/Creatinine Ratio 19.7, Glucose 131 H, Calcium 7.1 L, Total Bilirubin 0.40, AST 32, ALT 30, Alkaline Phosphatase 127 H, Total Protein 6.4, Albumin 1.0 L, Globulin 5.4 H, Albumin/Globulin Ratio 0.2 L 04/16/21 06:40: Vancomycin Trough 14.0 Micro: Microbiology 04/15/21 14:15 Abs - Other Gram Stain - Final 04/15/21 14:15 Abs - Other Wound Culture - Preliminary Staphylococcus aureus 04/13/21 14:15 Blood Culture (Wb) - Anticubital Left Blood Culture - Final Staphylococcus aureus 04/13/21 14:00 Blood Culture (Wb) - Right Wrist Blood Culture - Final Staphylococcus aureus ABG Data ABG results: ABG 04/15/21 18:28 Specimen Type ART Sample Site R Radial pH 7.48 H Bicarbonate Actual 23.8 Total CO2 25 Base Excess 0 O2 Saturation 92 L ABG pCO2 32.1 L ABG pO2 58 L Gerardo Test Positive Radiology Impression Chest X-Ray 04/15/21 18:16 IMPRESSION: There is a right pleural effusion. Right lower lobe pneumonia. Electronically Signed: Ramesh Madrid MD at 19:07 EST , KUB X-Ray 04/15/21 18:30 IMPRESSION: No acute findings. Electronically Signed: Ramesh Madrid MD at 19:09 EST , Chest X-Ray 04/16/21 05:55 IMPRESSION: Progressive right lower lobe infiltrate and blunting of the right costophrenic angle. Electronically Signed: Jose Mccoy MD at 8:47 EST , Lumbar Spine MRI 04/16/21 10:08 IMPRESSION: Multilevel degenerative changes, as described above. Epidural fluid collection at the upper sacrum with possible abscess. Left paraspinal fluid collection with abscess versus hematoma. Electronically Signed: Destin Giordano MD at 13:29 EST Reading Location ID and State: [place] / [place] , Service support , ADDENDUM: 04/16/21 1344 IMPRESSION: Multilevel degenerative changes, as described above. Epidural fluid collection at the upper sacrum with possible abscess. Left paraspinal fluid collection with abscess versus hematoma. N.B. : The above Results were Read Back by Destin Giordano MD to Grey Cheng MD, and understanding confirmed on 04/16/2021 13:37:46 (ET). Electronically Signed: Destin Giordano MD at 13:29 EST Reading Location ID and State: [id number] / [place] , Service support , Assessment & Plan Assessment/Plan (1) Epidural abscess: PLAN: A lengthy discussion with the patient. I reviewed his imaging with him. He has a lumbar MRI dated 04/16/2021 which shows an epidural fluid collection at L5-S1. He also has a large retroperitoneal fluid collection which is likely an abscess extending into the psoas muscle. I did recommend taking the patient to the OR today for lumbar laminectomy, evacuation, irrigation and debridement of his epidural hematoma. However, when discussed with anesthesia, they state that the patient is too unstable for surgery at this time. The patient is scheduled to be transferred to [facility], which I agree with. In the meantime I recommend antibiotics per infectious disease and evacuation and irrigation and debridement of his epidural hematoma as soon as he is medically stable for surgery. Follow-up with orthospine as needed
[2021-04-16] MEDS: 0.9% Saline Lock 10 ML Syringe IV ×2 (20:24→23:40)
[2021-04-17] VITALS: BP 130/79; PULSE 88; RESP 27; TEMP 36.2; O2SAT 96
[2021-04-17 01:00] VITALS: BP 140/92; PULSE 96; RESP 28; O2SAT 99
[2021-04-17 02:00] VITALS: BP 139/88; PULSE 93; RESP 29; O2SAT 98
[2021-04-17] MEDS: Morphine 2 MG/ML Syringe IV (02:55)
[2021-04-17] MEDS: 0.9% Saline Lock 10 ML Syringe IV (02:55)
[2021-04-17 03:00] VITALS: BP 147/94; PULSE 95; RESP 34; O2SAT 99
[2021-04-17] MEDS: Acetaminophen 325 MG Tablet 650 MG PO (03:00)
[2021-04-17 04:00] VITALS: BP 134/86; PULSE 95; PULSE 99; RESP 28; RESP 29; O2SAT 95; O2SAT 97
[2021-04-17 05:00] VITALS: BP 146/97; PULSE 98; RESP 24; O2SAT 98
[2021-04-17 08:10] LABS: HEPATITIS B SURFACE AG Negative (Negative); Hepatitis A IgM Antibody Negative (Negative); Hepatitis B Core AB IgM Negative (Negative)
[2021-04-17 11:08] LABS: Hep C Antibodies >11.0 s/co ratio (0.0-0.9)
== END 2021-04-17 05:45 | disposition short-term general hospital (02) | DRG 720 ==
LOC: ED 16:21 → ICU 19:45 → PCU 04-14 15:29 → ICU 04-16 14:21 → PCU 04-16 14:21
PROVIDERS: Internal Medicine Critical Care Medicine; Internal Medicine Gastroenterology; Internal Medicine Infectious Disease; Nurse Practitioner Family; Admitting Provider Internal Medicine; Emergency Provider Student in an Organized Health Care Education/Training Program; Visit Provider Student in an Organized Health Care Education/Training Program
PROC: 0DJ08ZZ Inspection of Upper Intestinal Tract, Via Natural or Artificial Opening Endoscopic (ICD-10-PCS; CPT 43235; principal; 2021-04-15 15:55)
DX: A41.02 Sepsis due to Methicillin resistant Staphylococcus aureus (principal); I26.99 Other pulmonary embolism without acute cor pulmonale; K65.1 Peritoneal abscess; E43 Unspecified severe protein-calorie malnutrition; I82.412 Acute embolism and thrombosis of left femoral vein; L89.310 Pressure ulcer of right buttock, unstageable; D62 Acute posthemorrhagic anemia; E87.1 Hypo-osmolality and hyponatremia; N17.9 Acute kidney failure, unspecified; L97.109 Non-pressure chronic ulcer of unspecified thigh with unspecified severity; L89.320 Pressure ulcer of left buttock, unstageable; I82.461 Acute embolism and thrombosis of right calf muscular vein; J44.0 Chronic obstructive pulmonary disease with (acute) lower respiratory infection; R65.20 Severe sepsis without septic shock; I82.432 Acute embolism and thrombosis of left popliteal vein; F11.10 Opioid abuse, uncomplicated; F15.10 Other stimulant abuse, uncomplicated; I25.10 Atherosclerotic heart disease of native coronary artery without angina pectoris; J18.9 Pneumonia, unspecified organism; E87.5 Hyperkalemia; F17.200 Nicotine dependence, unspecified, uncomplicated; N39.0 Urinary tract infection, site not specified; I10 Essential (primary) hypertension; J90 Pleural effusion, not elsewhere classified; B96.89 Other specified bacterial agents as the cause of diseases classified elsewhere; D50.9 Iron deficiency anemia, unspecified; L89.156 Pressure-induced deep tissue damage of sacral region; G06.1 Intraspinal abscess and granuloma; I25.2 Old myocardial infarction; L02.413 Cutaneous abscess of right upper limb; R09.02 Hypoxemia; K20.81 Other esophagitis with bleeding; L02.415 Cutaneous abscess of right lower limb; L02.212 Cutaneous abscess of back [any part, except buttock and flank]; L02.416 Cutaneous abscess of left lower limb; K26.4 Chronic or unspecified duodenal ulcer with hemorrhage; G89.4 Chronic pain syndrome; Z68.26 Body mass index [BMI] 26.0-26.9, adult; R29.6 Repeated falls
CPT/HCPCS: 36415; 36600; 51702; 71045; 71275; 72158; 74018; 74177; 75989; 80048; 80053; 80074; 80076; 80202; 80307; 81001; 82077; 82274; 82803; 83540; 83550; 83605; 83735; 83880; 84100; 84484; 85014; 85018; 85025; 85379; 85610; 85730; 86703; 86850; 86900; 86901; 86920; 86922; 87040; 87070; 87075; 87077; 87086; 87088; 87149; 87186; 87205; 87635; 88108; 88305; 88313; 93005; 93306; 93970; 94640; 97110; 97162; 97166; 97530; 97535; 97802; 99156; 99251; 99285; 99406; A9575; J7030; J7040; J7050; J7120; P9016; P9040; Q9957; Q9967; A4216; G0463; J1940; J2405; J3490; U0003; U0005